=== PATIENT | male | born 1970 | race Caucasian/White ===

== ENCOUNTER → 2020-11-26 13:59 | Outpatient (BNVA) | payer OTHER, SELFPAY | PROVIDERS: Visit Provider Nurse Practitioner Family | DX: F25.9 Schizoaffective disorder, unspecified (principal); F31.9 Bipolar disorder, unspecified; G54.2 Cervical root disorders, not elsewhere classified | CPT/HCPCS: 80053; 80061; 80164; 84443; 85025 ==

== ENCOUNTER → 2021-05-12 14:02 | Outpatient (BNVA) | payer OTHER, SELFPAY | PROVIDERS: Visit Provider Nurse Practitioner Family | DX: L02.212 Cutaneous abscess of back [any part, except buttock and flank] (principal) | CPT/HCPCS: 87070; 87077; 87184 ==

== ENCOUNTER 2022-01-27 20:59 | Inpatient (IN) | payer MEDICARE, MEDICAID, SELFPAY ==
[2022-01-27 21:26] VITALS: BP 155/99; PULSE 115; RESP 20; TEMP 36.7; O2SAT 95; BMI 30.9
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
[2022-01-27 21:43] LABS: Basophils # 0.1 10^3/uL (0.0-0.1); Basophils % 0.7 %; Eosinophils # 0.3 10^3/uL (0.0-0.8); Eosinophils % 2.9 %; Hematocrit 41.2 % (42.0-52.0); Hemoglobin 13.5 g/dL (11.7-16.6); Lymphocytes # 2.4 10^3/uL (0.8-4.8); Lymphocytes % 22.7 %; Mean Corpuscular HGB Conc 32.8 g/dL (30.0-36.0); Mean Corpuscular Hemoglobin 27.8 pg (28.0-34.0); Mean Corpuscular Volume 84.8 fl (80-94); Monocytes # 0.9 10^3/uL (0.2-0.9); Neutrophils # 6.64 10^3/uL (1.8-7.7); Neutrophils % 64.2 %; Nucleated Red Blood Cells % 0 %; Platelet Count 338 10^3/cmm (130-400); Red Blood Count 4.86 10^6/uL (4.1-5.3); Red Cell Distribution Width 13.8 % (12.1-15.1); White Blood Count 10.3 10^3/uL (4.0-10.0)
[2022-01-27 22:12] LABS: Alanine Aminotransferase 16 U/L (0-41); Albumin Level 4.7 g/dL (3.5-5.2); Alkaline Phosphatase 82 IU/L (40-130); Aspartate Amino Transferase 20 U/L (0-40); Blood Urea Nitrogen 21 mg/dL (6-20); Carbon Dioxide 27 mmol/L (22-29); Chloride 98 mmol/L (98-107); Free T4 Free Thyroxine 1.19 ng/dL (0.82-1.77); Glomerular Filtration Rate 70.6 mL/min (90-130); Glucose 104 mg/dL (65-115); Osmolality Calculated 289 mOsm/kg (285-295); Sodium 138 mmol/L (136-145); Thyroid Stimulating Hormone 2.79 uIU/mL (0.27-4.20); Total Bilirubin 0.2 mg/dL (0.15-1.2); Total Protein 8.7 g/dL (6.6-8.7)
[2022-01-27 22:22] LABS: Acetaminophen < 5.0 ug/mL (10-30); Alcohol Level < 10 mg/dL (0-10); Salicylate < 0.3 mg/dL (3-10)
[2022-01-28] VITALS (7 sets, daily range): BP systolic 106–153; BP diastolic 59–97; PULSE 76–100; RESP 14–18; TEMP 36.3–36.8; O2SAT 94–97
[2022-01-28] MEDS: haloperidol inj 5 mg/mL INJ 1 mL IM (05:45)
[2022-01-28] MEDS: LORazepam 2 mg/mL INJ 1 mL IM (05:45)
[2022-01-28 06:24] LABS: Amphetamines Screen Urine Positive (Negative); Barbiturates Screen Urine Negative (Negative); Benzodiazepines Screen Urine Negative (Negative); Cocaine Screen Urine Negative (Negative); Opiate Screen Urine Negative (Negative); PCP Screen Urine Negative (Negative); THC Screen Urine Positive (Negative)
--- NOTE | 2022-01-28 07:23 | PC.NURSE ---
Shift report received from JESSICA Fong. Pt resting in bed, eyes closed, respirations even and unlabored. 1:1 sitter present within line of sight.
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
[2022-01-28] MEDS: fixodent 39 gm Tube 1 APPLIC DENTAL (14:28)
[2022-01-28] MEDS: trazodone 150 mg Tablet PO (20:49)
[2022-01-28] MEDS: divalproex ER 250 mg Tablet (24H) 750 MG PO (20:49)
[2022-01-28] MEDS: gabapentin 400 mg Capsule 800 MG PO (20:49)
[2022-01-29 06:00] VITALS: BP 114/81; PULSE 99; RESP 16; O2SAT 95
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
[2022-01-29 08:31] VITALS: BP 125/72
[2022-01-29] MEDS: losartan 50 mg Tablet 25 MG PO (08:31)
[2022-01-29] MEDS: methocarbamol 750 mg Tablet PO ×2 (08:33→17:06)
[2022-01-29] MEDS: gabapentin 400 mg Capsule 800 MG PO ×3 (08:33→20:25)
[2022-01-29] MEDS: OLANZapine 10 mg TABLET PO ×2 (08:33→17:06)
[2022-01-29] MEDS: duloxetine 60 mg Capsule PO ×2 (08:33→17:06)
[2022-01-29] MEDS: propranolol 20 mg Tablet 10 MG PO ×2 (08:34→17:05)
[2022-01-29] MEDS: divalproex ER 500 mg Tablet (24H) PO (08:34)
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
--- NOTE | 2022-01-29 11:15 | PC.NURSE ---
NEW ORDERS NEW ORDERS PLACED IN CHART TO START TRAZEDONE 250 MG PO Q HS. EDUCATED PT ON NEW MEDICATIONS. ALL QUESTONS ANSWERED AND SUPPORT VOICED.
[2022-01-29 14:00] VITALS: BP 134/87; PULSE 69; RESP 18; TEMP 36.3; O2SAT 98
[2022-01-29] MEDS: OLANZapine 5 mg ODT PO (14:53)
--- NOTE | 2022-01-29 14:54 | PC.NURSE ---
PRN MEDICATIONS PT AT [facility] GETTING AGITATED DUE TO NOT BEING RELEASED LIKE EVERYONE ELSE DID ZYDIS 5 MG GIVEN ORDERED.
[2022-01-29] MEDS: nicotine 21 mg Patch 1 PATCH TRANSDERMA (16:32)
[2022-01-29 19:52] VITALS: BP 110/76; PULSE 80; RESP 18; TEMP 36.7; O2SAT 96
[2022-01-29] MEDS: divalproex ER 250 mg Tablet (24H) 750 MG PO (20:24)
[2022-01-29] MEDS: trazodone 100 mg Tablet 250 MG PO (20:25)
[2022-01-30 06:00] VITALS: BP 136/89; PULSE 79; RESP 20; TEMP 36.6; O2SAT 96
[2022-01-30] MEDS: acetaminophen 325 mg Tablet 650 MG PO (06:05)
--- NOTE | 2022-01-30 07:42 | P.NPUPN_ITS ---
Subjective NPU Subjective: He says that he did sleep better with the trazodone 250 mg last night. He has been acting appropriately on the unit. He does talk to himself sometimes and talks to the television. He says that he does that sometimes. He is just talking out his thoughts. He says that it is any worse than usual lately. He says that he told them that he had Medicare when he came but he really does not. He says that he was in [facility] for about 3 years up until November 10 of this year when he was released. He has not restarted his Medicare because he could not get to the Social Security office. He says his premiums are $70 per month. He agreed to stay until tomorrow when he could hopefully go to the Social Security office and also social workers could arrange his ride home. Mental Status Exam MSE Comments: This is an overweight 51-year-old male who appears approximately his stated age and is in no acute distress. He is pleasant and cooperative with the evaluation. He has a constant movement of his lower jaw from side to side. He is dressed in hospital scrubs and adequately groomed with a full wheeler. psychomotor activity is mildly increased. Speech is at a regular rate and rhythm, normal volume, good articulation, not pressured. Alert, oriented X3 Attention and concentration appear to be normal. Memory is intact Mood is good. Affect is euthymic. Thought process is logical and goal-directed. Thought content: Denies auditory and visual hallucinations. No delusions or paranoia are noted. No current suicidal ideation. He denies homicidal ideation. Fund of knowledge is probably average. Insight and judgment appear to be poor. Impulse control is limited. Cognition: Patient Appearance: Disheveled/Poor Hygiene Level of Consciousness: Awake, Alert, Follows Commands and Combative Patient Cognition Impaired: Yes Ability to Follow Directions: Fair Patient Orientation (long list): Person, Place and Time Comprehension Ability: No Impairment Hallucination Type: None Delusion Description: Persecutory Thought Process: Disorganized and Flight of Ideas Affect: Affect Description: Appropriate and Calm Behavior: Patient Behavior: Appropriate and Cooperative Speech Pattern: Appropriate and Clear Vitals/I&O/Wt Last Vital Signs Temp 97.8 F 01/30/22 06:00 Pulse 79 01/30/22 06:00 Resp 20 H 01/30/22 06:00 BP 136/89 01/30/22 06:00 Pulse Ox 96 01/30/22 06:00 Weight last 48 hrs Weight 106.141 kg Weight 106.141 kg Data NPU : 01/27/22 21:40 01/27/22 21:40 A&P Assessment and plan (1) Schizoaffective disorder, unspecified: Status: Chronic Qualifiers: Schizoaffective disorder type: unspecified Qualified Code(s): F25.9 - Schizoaffective disorder, unspecified (2) Psychosis: Status: Acute (3) Tardive dyskinesia: Status: Acute Plan This is a 51-year-old male with a history of schizoaffective disorder who police say has been acting manic the last few days. He appears to be compliant with his medications. Plan: 1. Continue current medication. Except increase trazodone to 250 mg at bedtime. We will get Depakote level. 2. Continue every 15 minute checks for safety. 3. Encourage individual, group and milieu therapies. 4. Encourage sober living treatment after discharge at the highest level of care to which he is willing to commit. 5. We will monitor for safety for himself in the community prior to discharge. Involuntary Hold Information 96 Hour Hold: 96 Hour Involuntary Admission: Yes 96 Hour Hold Ending Date: 02/02/22 Attestations NPU Medical Necessity Statement*: Inpatient hospitalization is medically necessary and the clinically appropriate intervention at this time. We will initiate medications and make changes as indicated. Coding Level of Care Code Acute Health Care Analyst for Rosie Varner Diagnoses Schizoaffective disorder, unspecified F25.9 Schizoaffective disorder type: unspecified Psychosis F29 Tardive dyskinesia G24.01
[2022-01-30] MEDS: divalproex ER 500 mg Tablet (24H) PO (08:18)
[2022-01-30] MEDS: methocarbamol 750 mg Tablet PO ×2 (08:19→20:10)
[2022-01-30] MEDS: losartan 50 mg Tablet 25 MG PO (08:19)
[2022-01-30] MEDS: gabapentin 400 mg Capsule 800 MG PO ×3 (08:19→20:11)
[2022-01-30] MEDS: duloxetine 60 mg Capsule PO ×2 (08:20→20:11)
[2022-01-30] MEDS: OLANZapine 10 mg TABLET PO ×2 (08:20→20:11)
[2022-01-30] MEDS: propranolol 20 mg Tablet 10 MG PO ×2 (08:20→20:11)
[2022-01-30 09:17] LABS: Valproic Acid Level 50.9 ug/mL (50-100)
[2022-01-30 14:00] VITALS: BP 140/80; PULSE 84; RESP 20; TEMP 36.8; O2SAT 98
[2022-01-30 20:07] VITALS: BP 118/84; PULSE 76; RESP 17; TEMP 36.6; O2SAT 96
[2022-01-30] MEDS: trazodone 100 mg Tablet 250 MG PO (20:09)
[2022-01-30] MEDS: divalproex ER 250 mg Tablet (24H) 750 MG PO (20:11)
[2022-01-31 06:00] VITALS: BP 131/88; PULSE 80; RESP 17; TEMP 36.6; O2SAT 96
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
[2022-01-31] MEDS: losartan 50 mg Tablet 25 MG PO (07:48)
[2022-01-31] MEDS: divalproex ER 500 mg Tablet (24H) PO (07:48)
[2022-01-31] MEDS: OLANZapine 10 mg TABLET PO (07:49)
[2022-01-31] MEDS: duloxetine 60 mg Capsule PO (07:49)
[2022-01-31] MEDS: gabapentin 400 mg Capsule 800 MG PO ×2 (07:50→15:43)
[2022-01-31] MEDS: methocarbamol 750 mg Tablet PO (07:51)
[2022-01-31 07:53] VITALS: BP 131/88; PULSE 80; RESP 17; TEMP 36.6; O2SAT 96
[2022-01-31 08:03] VITALS: BP 131/88; PULSE 80; RESP 17; TEMP 36.6; O2SAT 96
[2022-01-31] MEDS: propranolol 20 mg Tablet 10 MG PO (09:56)
--- NOTE | 2022-01-31 10:03 | DCPLANNER ---
IMM completed on 01/31/22 @ 7625. Pt was given a copy of rights and stated he understood rights.
[2022-01-31] MEDS: nicotine 21 mg Patch 1 PATCH TRANSDERMA (10:20)
--- NOTE | 2022-01-31 10:20 | PC.OT ---
OT EVALUATION ORDERS RECEIVED. PATIENT SCHEDULED FOR D/C TODAY; NURSING ASKS TO HOLD EVALUATION AT THIS TIME.
== END 2022-01-31 16:10 | disposition home or self-care (01) | DRG 885 ==
LOC: ER 01-28 01:20 → ER IP 01-28 03:28 → NP 01-28 09:17
PROVIDERS: Emergency Medicine; Admitting Provider Psychiatry & Neurology Psychiatry; Emergency Provider Emergency Medicine; Visit Provider Psychiatry & Neurology Psychiatry
DX: F25.9 Schizoaffective disorder, unspecified (principal); Z91.14 Patient's other noncompliance with medication regimen; F17.200 Nicotine dependence, unspecified, uncomplicated; G24.01 Drug induced subacute dyskinesia
CPT/HCPCS: 80053; 80164; 80306; 80307; 84439; 84443; 85025; 96372; 97150; 97165; 99285; J1630; J2060

== ENCOUNTER 2022-02-05 16:53 | Observation (INO) | payer MEDICAID, SELFPAY ==
[2022-02-05] VITALS (10 sets, daily range): BP systolic 98–131; BP diastolic 68–79; PULSE 70–106; RESP 16–22; TEMP 36.6–36.9; O2SAT 95–99; BMI 29.0
--- NOTE | 2022-02-05 17:01 | ECG_ITS ---
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 Measurements Intervals [place] Rate: 89 P: 62 TN: 156 QRS: 15 QRSD: 98 T: 34 QT: 370 QTc: 452 Interpretive Statements SINUS RHYTHM Compared to ECG 09/30/2018 16:47:47 No significant changes Electronically Signed On 02-06-2022 13:01:54 CDT by Pearl Portillo M.D. [email or web address]
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
[2022-02-05] MEDS: ondansetron 2 mg/ML SDV 2 mL 4 MG IVP (17:10)
[2022-02-05] MEDS: sodium chloride 0.9% 1,000 ML 999 ML IV ×2 (17:10→22:06)
[2022-02-05 17:11] LABS: Basophils # 0.1 10^3/uL (0.0-0.1); Basophils % 0.8 %; Eosinophils # 0.2 10^3/uL (0.0-0.8); Eosinophils % 1.5 %; Hematocrit 37.8 % (42.0-52.0); Hemoglobin 12.8 g/dL (11.7-16.6); Lymphocytes # 2.5 10^3/uL (0.8-4.8); Lymphocytes % 21.1 %; Mean Corpuscular HGB Conc 33.9 g/dL (30.0-36.0); Mean Corpuscular Hemoglobin 27.6 pg (28.0-34.0); Mean Corpuscular Volume 81.6 fl (80-94); Mean Platelet Volume 10.4 fL (7.4-10.4); Monocytes # 0.9 10^3/uL (0.2-0.9); Monocytes % 7.1 %; Neutrophils # 8.24 10^3/uL (1.8-7.7); Neutrophils % 69.2 %; Nucleated Red Blood Cells % 0 %; Platelet Count 377 10^3/cmm (130-400); Red Blood Count 4.63 10^6/uL (4.1-5.3); Red Cell Distribution Width 13.1 % (12.1-15.1); White Blood Count 11.9 10^3/uL (4.0-10.0)
[2022-02-05 17:28] LABS: Alanine Aminotransferase 14 U/L (0-41); Albumin Level 4.4 g/dL (3.5-5.2); Alkaline Phosphatase 80 IU/L (40-130); Anion Gap 18.2 (5-19); Aspartate Amino Transferase 33 U/L (0-40); Blood Urea Nitrogen 52 mg/dL (6-20); Calcium 9.2 mg/dL (8.5-10.5); Carbon Dioxide 24 mmol/L (22-29); Chloride 95 mmol/L (98-107); Globulin 3.8 g/dL (1.3-4.6); Glomerular Filtration Rate 26.2 mL/min (90-130); Glucose 104 mg/dL (65-115); Osmolality Calculated 290 mOsm/kg (285-295); Potassium 4.2 mmol/L (3.5-5.1); Sodium 133 mmol/L (136-145); Total Bilirubin 0.4 mg/dL (0.15-1.2); Total Protein 8.2 g/dL (6.6-8.7)
--- NOTE | 2022-02-05 19:01 | PM.HP ---
Providers/Chief Complaint Admitting Physician: Nishant Herrera MD Chief Complaint: WEAKNESS; LETHARGY History of Present Illness Hudson Vega is a 51 year old male who was found in a ditch by EMS. He was outside in the field for unkown amount of time. Carries hx of bipolar disorder and was recently discharged from npu a few days ago. Signs of heat exhaustion present on admission. Patient is stating that he was just walking and exercising while it was very hot outside he became dehydrated and overexerted himself and lean on the ground and his friend called EMS. Denying chest pain, shortness of breath, diarrhea, suicidal ideation. In the ER he was diagnosed with dehydration, he was tachycardic, creatinine worsened and hospital service was requested to maintain fluid hydration and observe him overnight Review of Systems Const: Denies: fever(s) Eyes: Denies: change in vision ENMT: Denies: throat pain Card: Denies: chest pain Resp: Denies: dyspnea GI: Denies: abdominal pain : Denies: flank pain Musc: Denies: neck pain Skin/Breast: Denies: rash Neuro: Denies: headache(s) Psych: Denies: anxiety Endo: Denies: polyuria Eitan/Lymph: Denies: easy bruising All/Imm: Denies: urticaria Medications/Allergies Home Medications Medication Instructions Recorded Confirmed Last Taken Type divalproex 250 mg tablet,extended 750 mg PO .bedtime 30 Days #90 tab 08/24/21 02/06/22 Unknown Rx release 24 hr (Depakote ER) divalproex 500 mg tablet,extended 500 mg PO .morning 30 Days #30 tab 08/24/21 02/06/22 Unknown Rx release 24 hr (Depakote ER) methocarbamol 750 mg tablet 750 mg PO .2 times day 30 Days #60 08/24/21 02/06/22 Unknown Rx tab naproxen 500 mg tablet 500 mg PO BID 30 Days #60 tab 08/24/21 02/06/22 Unknown Rx olanzapine 10 mg tablet (Zyprexa) 10 mg PO BID 30 Days #60 tab 08/24/21 02/06/22 Unknown Rx trazodone 150 mg tablet 150 mg PO .at bedtime 30 Days #30 08/24/21 02/06/22 Unknown Rx tab valsartan 80 mg tablet (Diovan) 80 mg PO DAILY #30 tab 08/24/21 02/06/22 Unknown Rx gabapentin 600 mg tablet 600 mg PO 3XD 02/06/22 02/06/22 Unknown History Allergies Allergy/AdvReac Type Severity Reaction Status Date / Time No Known Allergies Allergy Verified 01/28/22 08:16 PFSH Acute PFSH: Medical History Anxiety Bipolar depression Cervical plexus neuropathy Myofascial pain syndrome Schizoaffective disorder, unspecified Surgical History History of knee surgery left Family History Denies family history of CAD (coronary artery disease) Family history of premature coronary artery disease Social History Smoking and tobacco status: current every day smoker Second hand smoke exposure: Yes Smoking risk assessment/counseling performed?: Yes Alcohol intake: unknown Desire information about alcohol rehabilitation?: No Counseling given: No Desire information about substance/drug rehabilitation?: No Counseling given: No Caregiver/support person: Yes Lives independently: Yes Household members: none Housing: Other Marital status: Number of children: 4 service: No Current occupational status: other Pets and animals: No History of recent travel: No Current gender identity: Male Vitals/I&O/Wt Last Vital Signs Temp 97.9 F 02/05/22 16:56 Pulse 106 H 02/05/22 18:00 Resp 22 H 02/05/22 18:00 BP 98/70 02/05/22 18:00 Pulse Ox 97 02/05/22 18:00 Weight last 48 hrs Weight 99.79 kg Physical Exam Narrative: Nonfocal neuro exam Patient is back to his baseline Signs of dehydration Distended abdomen Nontender Awake and alert Satting well on room air Hemodynamically stable Data : 02/06/22 04:15 02/06/22 04:15 A&P Assessment and plan (1) Heat exhaustion: Status: Acute (2) ADITHYA (acute kidney injury): Status: Acute Plan Dehydration related to heat exhaustion Continue IV fluids Check CPK NIH 0 Polysubstance abuse I will request chest x-ray Drug screen ADITHYA related to dehydration: Anticipating, with IV fluids No active suicidal ideation Full code Regular diet Hold nephrotoxic agents Attestations Medical Necessity Statement*: Anticipating discharge within 48 hours for dehydration and heat exhaustion Time Spent in Patient Care: 35 Coding Level of Care Code Acute [employer] Sp[employer] Mixer for Chg Fwd Diagnoses Heat exhaustion T67.5XXA ADITHYA (acute kidney injury) N17.9
--- NOTE | 2022-02-05 19:09 | XRR_ITS ---
PROCEDURE INFORMATION: Exam: XR Chest Exam date and time: 02/05/2022 7:45 PM Age: 51 years old Clinical indication: Other: AMS TECHNIQUE: Imaging protocol: Radiologic exam of the chest. Views: 1 view. COMPARISON: CR Chest 1 [place] [id number] 09/30/2018 10:16 AM FINDINGS: Lungs: Shallow inspiration. The lungs are clear. No consolidation. Pleural spaces: Unremarkable. No pleural effusion. No pneumothorax. Heart/Mediastinum: Soft tissue calcifications in the left axilla versus calcified lymph nodes. This is unchanged. Bones/joints: Unremarkable. XR/XR chest 1V portable [id number] IMPRESSION: No acute findings.
[2022-02-05 19:33] LABS: Ketone (Acetest) Serum Negative (Negative)
--- NOTE | 2022-02-05 19:40 | PC.NURSE ---
1845 Given room assignment, HS directed staff to call report before 1924. Attempt at report at 0, 1920 and 1930 without success.
[2022-02-05 22:09] LABS: Glucose Point of Care 86 mg/dL (70-110)
[2022-02-05] MEDS: sodium chloride 0.9% 1,000 ML 75 ML IV (23:50)
[2022-02-06 03:49] VITALS: BP 112/59; PULSE 62; RESP 16; TEMP 36.8; O2SAT 97
[2022-02-06 05:15] LABS: Basophils % 0.4 %; Eosinophils # 0.2 10^3/uL (0.0-0.8); Eosinophils % 2.2 %; Hematocrit 35.5 % (42.0-52.0); Hemoglobin 11.7 g/dL (11.7-16.6); Lymphocytes # 3.7 10^3/uL (0.8-4.8); Mean Corpuscular Hemoglobin 27.4 pg (28.0-34.0); Mean Corpuscular Volume 83.1 fl (80-94); Mean Platelet Volume 10.7 fL (7.4-10.4); Monocytes # 0.8 10^3/uL (0.2-0.9); Monocytes % 8.2 %; Neutrophils # 4.54 10^3/uL (1.8-7.7); Neutrophils % 48.9 %; Nucleated Red Blood Cells % 0 %; Platelet Count 333 10^3/cmm (130-400); Red Blood Count 4.27 10^6/uL (4.1-5.3); Red Cell Distribution Width 13.4 % (12.1-15.1); White Blood Count 9.3 10^3/uL (4.0-10.0)
[2022-02-06 06:00] VITALS: PULSE 65
[2022-02-06 06:00] LABS: Anion Gap 13.7 (5-19); Blood Urea Nitrogen 35 mg/dL (6-20); Calcium 8.7 mg/dL (8.5-10.5); Carbon Dioxide 24 mmol/L (22-29); Chloride 99 mmol/L (98-107); Glomerular Filtration Rate 58.2 mL/min (90-130); Glucose 84 mg/dL (65-115); Magnesium 2.7 mg/dL (1.7-2.3); Osmolality Calculated 283 mOsm/kg (285-295); Potassium 3.7 mmol/L (3.5-5.1); Sodium 133 mmol/L (136-145)
[2022-02-06 06:12] LABS: Creatine Phosphokinase 619 U/L (39-308)
[2022-02-06 06:22] LABS: Glucose Point of Care 85 mg/dL (70-110)
[2022-02-06 07:22] VITALS: BP 101/60; PULSE 59; RESP 18; O2SAT 96
[2022-02-06 08:00] VITALS: PULSE 90; RESP 16; O2SAT 96
[2022-02-06 10:16] LABS: Add Urine Microscopic? NO; Charge for UA Resulting for Rev
[2022-02-06 10:49] VITALS: BP 103/60; PULSE 85; RESP 16; TEMP 36.8; O2SAT 97
[2022-02-06 10:50] LABS: Bilirubin Urine Neg (Negative); Blood Urine Neg (Negative); Glucose Urine UA Norm (Normal); Ketones Urine Negative (Negative); Leukocyte Esterase Urine Negative (Negative); Nitrate Urine Negative (Negative); Protein Urine Neg (Negative); Urine Appearance Clear (CLEAR); Urine Color Yellow (Yellow); Urobilinogen Urine Norm (Negative); pH Urine 5 (5-7)
[2022-02-06 10:59] LABS: Amphetamines Screen Urine Negative (Negative); Barbiturates Screen Urine Negative (Negative); Benzodiazepines Screen Urine Negative (Negative); Cocaine Screen Urine Negative (Negative); Opiate Screen Urine Negative (Negative); PCP Screen Urine Negative (Negative); THC Screen Urine Positive (Negative)
--- NOTE | 2022-02-06 11:18 | P.DS_ITS ---
Discharge Providers Date of Admission: 02/05/22 18:05 Date of Discharge: February 06, 2022 Attending Provider at Admission: Nishant Herrera MD Attending Provider at Discharge: Nishant Herrera MD Reason for Visit Reason for Visit: WEAKNESS; LETHARGY Hospital Course Hospital Course Patient was admitted for management and evaluation of presyncope related to heat exhaustion and dehydration. Drug screen positive for marijuana, he remained afebrile, NIH 0, CPK 619, patient was back to his baseline in the ER, he was hydrated with IV fluids, creatinine improved, ADITHYA which was related to dehydration. I am recommending holding losartan for at least a week, increase IV fluids. Patient will be discharged in stable condition on 02/06. Physical Exam Narrative: Nonfocal neuro exam He is walking around No active psychotic episodes Hemodynamically stable Awake and alert Hydrated Abdomen soft Satting well on room air Discharge Data Studies Completed and Pending Completed Studies During Hospitalization Category Date Time Status XR chest 1V portable [id number] Routine Exams 02/05/22 19:09 Completed Pending at discharge Category Date Time Status Drug Screen, Urine Routine Lab 02/05/22 19:13 Ordered Radiology Impressions Chest X-Ray 02/05/22 19:09 IMPRESSION: No acute findings. Laboratory Results WBC 9.3 10^3/uL (4.0-10.0) 02/06/22 04:15 RBC 4.27 10^6/uL (4.1-5.3) 02/06/22 04:15 Hgb 11.7 g/dL (11.7-16.6) 02/06/22 04:15 Hct 35.5 % (42.0-52.0) L 02/06/22 04:15 MCV 83.1 fl (80-94) 02/06/22 04:15 MCH 27.4 pg (28.0-34.0) L 02/06/22 04:15 MCHC 33.0 g/dL (30.0-36.0) 02/06/22 04:15 RDW 13.4 % (12.1-15.1) 02/06/22 04:15 Plt Count 333 10^3/cmm (130-400) 02/06/22 04:15 MPV 10.7 fL (7.4-10.4) H 02/06/22 04:15 Neut % (Auto) 48.9 % 02/06/22 04:15 Lymph % (Auto) 40.0 % 02/06/22 04:15 Mckenzie % (Auto) 8.2 % 02/06/22 04:15 Eos % (Auto) 2.2 % 02/06/22 04:15 Baso % (Auto) 0.4 % 02/06/22 04:15 Neut # (Auto) 4.54 10^3/uL (1.8-7.7) 02/06/22 04:15 Lymph # (Auto) 3.7 10^3/uL (0.8-4.8) 02/06/22 04:15 Mckenzie # (Auto) 0.8 10^3/uL (0.2-0.9) 02/06/22 04:15 Eos # (Auto) 0.2 10^3/uL (0.0-0.8) 02/06/22 04:15 Baso # (Auto) 0.0 10^3/uL (0.0-0.1) 02/06/22 04:15 Nucleated RBC % (auto) 0 % 02/06/22 04:15 Nucleated RBCs # 0.0 /100WBC 02/06/22 04:15 Sodium 133 mmol/L (136-145) L 02/06/22 04:15 Potassium 3.7 mmol/L (3.5-5.1) 02/06/22 04:15 Chloride 99 mmol/L (98-107) 02/06/22 04:15 Carbon Dioxide 24 mmol/L (22-29) 02/06/22 04:15 Anion Gap 13.7 (5-19) 02/06/22 04:15 BUN 35 mg/dL (6-20) H 02/06/22 04:15 Creatinine 1.3 mg/dL (0.7-1.2) H 02/06/22 04:15 GFR Calculation 58.2 mL/min (90-130) L 02/06/22 04:15 Glucose 84 mg/dL (65-115) 02/06/22 04:15 POC Glucose 85 mg/dL (70-110) 02/06/22 06:14 Calculated Osmolality 283 mOsm/kg (285-295) L 02/06/22 04:15 Calcium 8.7 mg/dL (8.5-10.5) 02/06/22 04:15 Magnesium 2.7 mg/dL (1.7-2.3) H 02/06/22 04:15 Total Bilirubin 0.4 mg/dL (0.15-1.2) 02/05/22 17:00 AST 33 U/L (0-40) 02/05/22 17:00 ALT 14 U/L (0-41) 02/05/22 17:00 Alkaline Phosphatase 80 IU/L (40-130) 02/05/22 17:00 Creatine Kinase 619 U/L (39-308) H* 02/06/22 04:15 Total Protein 8.2 g/dL (6.6-8.7) 02/05/22 17:00 Albumin 4.4 g/dL (3.5-5.2) 02/05/22 17:00 Globulin 3.8 g/dL (1.3-4.6) 02/05/22 17:00 Urine Color Yellow (Yellow) 02/05/22 10:10 Urine Appearance Clear (CLEAR) 02/05/22 10:10 Urine pH 5 (5-7) 02/05/22 10:10 Ur Specific [place] 1.010 (1.005-1.030) 02/05/22 10:10 Urine Protein Neg (Negative) 02/05/22 10:10 Urine Glucose (UA) Norm (Normal) 02/05/22 10:10 Urine Ketones Negative (Negative) 02/05/22 10:10 Urine Blood Neg (Negative) 02/05/22 10:10 Urine Nitrate Negative (Negative) 02/05/22 10:10 Urine Bilirubin Neg (Negative) 02/05/22 10:10 Urine Urobilinogen Norm mg/dL (Negative) 02/05/22 10:10 Ur Leukocyte Esterase Negative (Negative) 02/05/22 10:10 Serum Ketones Negative (Negative) 02/05/22 17:00 Vitals Last Vital Signs Temp 98.3 F 02/06/22 10:49 Pulse 85 02/06/22 10:49 Resp 16 02/06/22 10:49 BP 103/60 02/06/22 10:49 Pulse Ox 97 02/06/22 10:49 Discharge Plan Discharge Patient Disposition: Home Condition: Stable Prescriptions: Continued trazodone 150 mg tablet 150 mg PO .at bedtime 30 Days Qty: 30 5RF olanzapine [Zyprexa] 10 mg tablet 10 mg PO BID 30 Days Qty: 60 5RF methocarbamol 750 mg tablet 750 mg PO .2 times day 30 Days Qty: 60 5RF divalproex [Depakote ER] 250 mg tablet extended release 24 hr 750 mg PO .bedtime 30 Days Qty: 90 5RF divalproex [Depakote ER] 500 mg tablet extended release 24 hr 500 mg PO .morning 30 Days Qty: 30 5RF gabapentin 600 mg tablet 600 mg PO 3XD 0RF Held naproxen 500 mg tablet 500 mg PO BID 30 Days Qty: 60 5RF Hold Instructions: Resume on 02/13/22. valsartan [Diovan] 80 mg tablet 80 mg PO DAILY Qty: 30 5RF Hold Instructions: Resume on 02/13/22. Discharge Orders: Discharge Order (Routine); Ordered 02/06/22 Ordered By: Nishant Herrera Discharge Diet: Regular Patient Instructions: Marijuana Abuse, Rhabdomyolysis (DC), Opioid Safety Discharge Attestations Time Spent in Discharge Care*: less than 30 min Quality Metrics Clinical Quality Measures [ No reported AMI, CVA or VTE this stay] Coding Level of Care Code Acute Chg FW DC note
[2022-02-06 11:25] LABS: Glucose Point of Care 140 mg/dL (70-110)
[2022-02-06 12:57] VITALS: BP 103/60; PULSE 85; RESP 16; TEMP 36.8; O2SAT 97
--- NOTE | 2022-02-06 12:58 | PC.NURSE ---
pt left main entrance on foot, did not wait for ride to arrive.
== END 2022-02-06 12:59 | disposition home or self-care (01) ==
LOC: ER 18:06 → MEDSURG 20:10
PROVIDERS: Admitting Provider Internal Medicine; Emergency Provider Family Medicine; Visit Provider Internal Medicine
DX: R55 Syncope and collapse (principal); T67.5XXA Heat exhaustion, unspecified, initial encounter; X58.XXXA Exposure to other specified factors, initial encounter; E86.0 Dehydration; F12.90 Cannabis use, unspecified, uncomplicated; F41.9 Anxiety disorder, unspecified; F17.200 Nicotine dependence, unspecified, uncomplicated
CPT/HCPCS: 36415; 36416; 71045; 80048; 80053; 80306; 81003; 82009; 82550; 82962; 83735; 85025; 93005; 96361; 96374; 99285; G0378; J2405; J7030

== ENCOUNTER 2022-02-07 15:32 | Inpatient (IN) | payer MEDICARE, MEDICAID, SELFPAY ==
[2022-02-07 15:43] VITALS: BP 140/92; PULSE 85; RESP 18; TEMP 36.7; O2SAT 93; BMI 30.9
--- NOTE | 2022-02-07 15:55 | ED.C_ITS ---
HPI - Psych General: Chief Complaint: Psychiatric Symptoms Stated Complaint: suicidal thoughts Time Seen by Provider: 02/07/22 15:47 Review of Systems Const: Denies: fever(s) or chills Eyes: Denies: change in vision ENMT: Denies: mouth pain Card: Denies: chest pain or palpitations Resp: Denies: dyspnea or non-productive cough GI: Denies: abdominal pain, nausea, vomiting or diarrhea : Denies: dysuria Musc: Denies: extremity pain Skin/Breast: Denies: rash or new lesions Neuro: Denies: weakness in extremities Psych: Reports: other (Normal mood) Eitan/Lymph: Denies: easy bruising PFSH ED PFSH: Medical History Anxiety Bipolar depression Cervical plexus neuropathy Myofascial pain syndrome Schizoaffective disorder, unspecified Surgical History History of knee surgery left Family History Denies family history of CAD (coronary artery disease) Family history of premature coronary artery disease Social History Smoking and tobacco status: current every day smoker Second hand smoke exposure: Yes Smoking risk assessment/counseling performed?: Yes Alcohol intake: unknown Desire information about alcohol rehabilitation?: No Counseling given: No Desire information about substance/drug rehabilitation?: No Counseling given: No Caregiver/support person: Yes Lives independently: Yes Household members: none Housing: Other Marital status: Number of children: 4 service: No Current occupational status: other Pets and animals: No History of recent travel: No Current gender identity: Male Physical Exam Const: COMMON NORMALS: alert HENMT: COMMON NORMALS: atraumatic HEAD & SCALP: atraumatic MOUTH: moist mucous membranes not abnormal Eye: COMMON NORMALS: EOMs intact bilaterally and conjunctivae normal CONJUNCTIVA: Yes conjunctivae normal Neck/C-Spine: COMMON NORMALS: full ROM and supple Resp: COMMON NORMALS: normal respiratory effort and clear to auscultation bilaterally AUSCULTATION: clear to auscultation bilaterally Cardio: COMMON NORMALS: regular rate RATE: regular rate GI: COMMON NORMALS: Soft to palpation and non-tender PALPATION: Yes Soft to palpation Extremity: COMMON NORMALS: full ROM Neuro: SENSORIUM/ORIENTATION: Yes alert MOTOR EXAM: No Abnormal motor strength present and Other motor observations present (no focal motor deficits) Psych: COMMON NORMALS: speech normal SPEECH: Yes normal speech MOOD & AFFECT: Yes euthymic mood Course Vital Signs: Vital signs: Vital Signs Temperature 98.1 F 02/07/22 15:43 Pulse Rate 85 02/07/22 15:43 Respiratory Rate 18 02/07/22 15:43 Blood Pressure 140/92 02/07/22 15:43 Pulse Oximetry 93 02/07/22 15:43 Discharge Plan Discharge Condition: Stable Prescriptions: No Action trazodone 150 mg tablet 150 mg PO .at bedtime 30 Days Qty: 30 5RF olanzapine [Zyprexa] 10 mg tablet 10 mg PO BID 30 Days Qty: 60 5RF naproxen 500 mg tablet 500 mg PO BID 30 Days Qty: 60 5RF Hold Instructions: Resume on 02/13/22. methocarbamol 750 mg tablet 750 mg PO .2 times day 30 Days Qty: 60 5RF divalproex [Depakote ER] 250 mg tablet extended release 24 hr 750 mg PO .bedtime 30 Days Qty: 90 5RF divalproex [Depakote ER] 500 mg tablet extended release 24 hr 500 mg PO .morning 30 Days Qty: 30 5RF valsartan [Diovan] 80 mg tablet 80 mg PO DAILY Qty: 30 5RF Hold Instructions: Resume on 02/13/22. gabapentin 600 mg tablet 600 mg PO 3XD 0RF Coding Level of Care Code ED Financial Reporting Director for Chg Fwd
--- NOTE | 2022-02-07 15:57 | ED_ITS ---
HPI - General Adult General: Chief complaint: Psychiatric Symptoms Stated complaint: suicidal thoughts Time Seen by Provider: 02/07/22 15:47 History of Present Illness: HPI: [51]yo patient w/ hx of anxiety, bipolar disorder BIBA for suicidal ideation. He tells me that he does not have a ride home however he says that Even if I get home my, I am going to cut my wrist with a razor. On arrival, the patient is AAOx3 and cooperative with my evaluation. No focal complaints of chest pain, shortness of breath, palpitations, N/V, focal GI/ complaints. Currently denies HI. No complaints of hallucinations. Onset: acute Duration: ongoing Location: home Severity: severe Associated symptoms: Deny chest pain, dyspnea, nausea, rash, palpitations or vomiting Review of Systems Const: Denies: fever(s) or chills Eyes: Denies: change in vision ENMT: Denies: mouth pain Card: Denies: chest pain or palpitations Resp: Denies: dyspnea or non-productive cough GI: Denies: abdominal pain, nausea, vomiting or diarrhea : Denies: dysuria Musc: Denies: extremity pain Skin/Breast: Denies: rash or new lesions Neuro: Denies: weakness in extremities Psych: Reports: depression and suicidal ideation Eitan/Lymph: Denies: easy bruising PFSH ED PFSH: Medical History Anxiety Bipolar depression Cervical plexus neuropathy Myofascial pain syndrome Schizoaffective disorder, unspecified Surgical History History of knee surgery left Family History Denies family history of CAD (coronary artery disease) Family history of premature coronary artery disease Social History Smoking and tobacco status: current every day smoker Second hand smoke exposure: Yes Smoking risk assessment/counseling performed?: Yes Alcohol intake: unknown Desire information about alcohol rehabilitation?: No Counseling given: No Desire information about substance/drug rehabilitation?: No Counseling given: No Caregiver/support person: Yes Lives independently: Yes Household members: none Housing: Other Marital status: Number of children: 4 service: No Current occupational status: other Pets and animals: No History of recent travel: No Current gender identity: Male Physical Exam Const: COMMON NORMALS: alert HENMT: COMMON NORMALS: atraumatic HEAD & SCALP: atraumatic MOUTH: moist mucous membranes not abnormal Eye: COMMON NORMALS: EOMs intact bilaterally and conjunctivae normal CONJUNCTIVA: Yes conjunctivae normal Neck/C-Spine: COMMON NORMALS: full ROM and supple Resp: COMMON NORMALS: normal respiratory effort and clear to auscultation bilaterally AUSCULTATION: clear to auscultation bilaterally Cardio: COMMON NORMALS: regular rate RATE: regular rate GI: COMMON NORMALS: Soft to palpation and non-tender PALPATION: Yes Soft to palpation Extremity: COMMON NORMALS: full ROM Neuro: SENSORIUM/ORIENTATION: Yes alert MOTOR EXAM: No Abnormal motor strength present and Other motor observations present (no focal motor deficits) Psych: COMMON NORMALS: speech normal SPEECH: Yes normal speech MOOD & AFFECT: Yes depressed mood Course Vital Signs: Vital signs: Vital Signs Temperature 98 F 02/10/22 13:17 Pulse Rate 78 02/10/22 13:17 Respiratory Rate 17 02/10/22 13:17 Blood Pressure 128/84 02/10/22 13:17 Pulse Oximetry 97 02/10/22 13:17 [facility] - General Adult Medical Decision Making [51]yo patient w/ hx of bipolar disorder, anxiety presenting for SI with plan. HDS, exam within normal limit Thoughts are linear and organized, and the patient has no AH/VH, or HI. Clinically the patient displays no overt toxidrome; they are well appearing, with low suspicion for toxic ingestion given history and exam. Symptoms unlikely 2/2 anemia, hypothyroidism, infection, or ICH. Workup: CBC, CMP, Lipase, salicylate/tylenol, UDS Lab findings: wnl, +marijuana in the urine [5:30pm] On reassessment, labs and workup wnl. Patient is hemodynamically stable with no acute medical complaints. Case discussed with psychiatric provider Dr. Forrest at [facility] psych inpatient with recommendation for admission Disposition: Psych Lab Data : 02/07/22 16:35 02/07/22 16:35 Laboratory Results WBC 10.2 10^3/uL (4.0-10.0) H 02/07/22 16:35 RBC 4.41 10^6/uL (4.1-5.3) 02/07/22 16:35 Hgb 12.2 g/dL (11.7-16.6) 02/07/22 16:35 Hct 37.0 % (42.0-52.0) L 02/07/22 16:35 MCV 83.9 fl (80-94) 02/07/22 16:35 MCH 27.7 pg (28.0-34.0) L 02/07/22 16:35 MCHC 33.0 g/dL (30.0-36.0) 02/07/22 16:35 RDW 13.5 % (12.1-15.1) 02/07/22 16:35 Plt Count 358 10^3/cmm (130-400) 02/07/22 16:35 MPV 10.4 fL (7.4-10.4) 02/07/22 16:35 Neut % (Auto) 71.0 % 02/07/22 16:35 Lymph % (Auto) 19.8 % 02/07/22 16:35 [place] % (Auto) 7.3 % 02/07/22 16:35 Eos % (Auto) 1.0 % 02/07/22 16:35 Baso % (Auto) 0.5 % 02/07/22 16:35 Neut # (Auto) 7.26 10^3/uL (1.8-7.7) 02/07/22 16:35 Lymph # (Auto) 2.0 10^3/uL (0.8-4.8) 02/07/22 16:35 [place] # (Auto) 0.8 10^3/uL (0.2-0.9) 02/07/22 16:35 Eos # (Auto) 0.1 10^3/uL (0.0-0.8) 02/07/22 16:35 Baso # (Auto) 0.1 10^3/uL (0.0-0.1) 02/07/22 16:35 Nucleated RBC % (auto) 0 % 02/07/22 16:35 Nucleated RBCs # 0.0 /100WBC 02/07/22 16:35 Sodium 133 mmol/L (136-145) L 02/07/22 16:35 Potassium 4.5 mmol/L (3.5-5.1) 02/07/22 16:35 Chloride 96 mmol/L (98-107) L 02/07/22 16:35 Carbon Dioxide 25 mmol/L (22-29) 02/07/22 16:35 Anion Gap 16.5 (5-19) 02/07/22 16:35 BUN 26 mg/dL (6-20) H 02/07/22 16:35 Creatinine 0.9 mg/dL (0.7-1.2) 02/07/22 16:35 GFR Calculation 89.0 mL/min (90-130) L 02/07/22 16:35 Glucose 87 mg/dL (65-115) 02/07/22 16:35 Calculated Osmolality 280 mOsm/kg (285-295) L 02/07/22 16:35 Calcium 9.7 mg/dL (8.5-10.5) 02/07/22 16:35 Total Bilirubin 0.4 mg/dL (0.15-1.2) 02/07/22 16:35 AST 34 U/L (0-40) 02/07/22 16:35 ALT 17 U/L (0-41) 02/07/22 16:35 Alkaline Phosphatase 73 IU/L (40-130) 02/07/22 16:35 Total Protein 8.3 g/dL (6.6-8.7) 02/07/22 16:35 Albumin 4.6 g/dL (3.5-5.2) 02/07/22 16:35 Globulin 3.7 g/dL (1.3-4.6) 02/07/22 16:35 Lipase 37 U/L (13-60) 02/07/22 16:35 Salicylates < 0.3 mg/dL (3-10) L 02/07/22 16:35 Urine Opiates Screen Negative ng/mL (Negative) 02/07/22 15:41 Acetaminophen < 5.0 ug/mL (10-30) L 02/07/22 16:35 Ur Barbiturates Screen Negative ng/mL (Negative) 02/07/22 15:41 Ur Phencyclidine Scrn Negative ng/mL (Negative) 02/07/22 15:41 Ur Amphetamines Screen Negative ng/mL (Negative) 02/07/22 15:41 U Benzodiazepines Scrn Negative ng/mL (Negative) 02/07/22 15:41 Urine Cocaine Screen Negative ng/mL (Negative) 02/07/22 15:41 U Marijuana (THC) Screen Positive ng/mL (Negative) H 02/07/22 15:41 Discharge Plan Discharge Patient Disposition: Admitted As Inpatient Admit Provider: Chas Forrest Clinical Impression: Bipolar disorder, Depression with suicidal ideation Condition: Stable Discharge Diet: Regular Discharge Activity: Resume usual activity Coding Level of Care Code ED Child Protective Investigator for Kaylahg Fwd Exam Comprehensive
[2022-02-07 16:28] LABS: Amphetamines Screen Urine Negative (Negative); Barbiturates Screen Urine Negative (Negative); Benzodiazepines Screen Urine Negative (Negative); Cocaine Screen Urine Negative (Negative); Opiate Screen Urine Negative (Negative); PCP Screen Urine Negative (Negative); THC Screen Urine Positive (Negative)
[2022-02-07 16:42] LABS: Basophils # 0.1 10^3/uL (0.0-0.1); Basophils % 0.5 %; Eosinophils # 0.1 10^3/uL (0.0-0.8); Hemoglobin 12.2 g/dL (11.7-16.6); Lymphocytes % 19.8 %; Mean Corpuscular Hemoglobin 27.7 pg (28.0-34.0); Mean Corpuscular Volume 83.9 fl (80-94); Mean Platelet Volume 10.4 fL (7.4-10.4); Monocytes # 0.8 10^3/uL (0.2-0.9); Monocytes % 7.3 %; Neutrophils # 7.26 10^3/uL (1.8-7.7); Nucleated Red Blood Cells % 0 %; Platelet Count 358 10^3/cmm (130-400); Red Blood Count 4.41 10^6/uL (4.1-5.3); Red Cell Distribution Width 13.5 % (12.1-15.1); White Blood Count 10.2 10^3/uL (4.0-10.0)
[2022-02-07 17:07] LABS: Alanine Aminotransferase 17 U/L (0-41); Albumin Level 4.6 g/dL (3.5-5.2); Alkaline Phosphatase 73 IU/L (40-130); Blood Urea Nitrogen 26 mg/dL (6-20); Calcium 9.7 mg/dL (8.5-10.5); Carbon Dioxide 25 mmol/L (22-29); Chloride 96 mmol/L (98-107); Globulin 3.7 g/dL (1.3-4.6); Glucose 87 mg/dL (65-115); Lipase 37 U/L (13-60); Osmolality Calculated 280 mOsm/kg (285-295); Sodium 133 mmol/L (136-145); Total Bilirubin 0.4 mg/dL (0.15-1.2); Total Protein 8.3 g/dL (6.6-8.7)
[2022-02-07 17:15] LABS: Acetaminophen < 5.0 ug/mL (10-30); Anion Gap 16.5 (5-19); Salicylate < 0.3 mg/dL (3-10)
[2022-02-07 17:16] LABS: Aspartate Amino Transferase 34 U/L (0-40); Potassium 4.5 mmol/L (3.5-5.1)
--- NOTE | 2022-02-07 18:27 | PC.NURSE ---
REPORT CALLED TO MIAN LOPEZ IN [facility].
[2022-02-07 18:52] VITALS: BP 136/86; PULSE 90; RESP 20; TEMP 36.7; O2SAT 96
[2022-02-07] MEDS: nicotine 4 mg lozenge MUCOUS MEM (20:21)
[2022-02-07] MEDS: trazodone 150 mg Tablet PO (20:29)
[2022-02-07] MEDS: gabapentin 300 mg Capsule 600 MG PO (20:29)
[2022-02-07] MEDS: divalproex ER 250 mg Tablet (24H) 750 MG PO (20:29)
[2022-02-07 21:05] VITALS: BP 136/86; PULSE 90; RESP 20; TEMP 36.7; O2SAT 96
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
[2022-02-08 06:00] VITALS: BP 104/67; PULSE 70; RESP 20; TEMP 36.8; O2SAT 98
[2022-02-08] MEDS: divalproex ER 500 mg Tablet (24H) PO (06:03)
[2022-02-08] MEDS: nicotine 4 mg lozenge MUCOUS MEM (06:19)
[2022-02-08] MEDS: OLANZapine 10 mg TABLET PO ×2 (08:28→19:52)
[2022-02-08] MEDS: gabapentin 300 mg Capsule 600 MG PO ×3 (08:29→19:50)
[2022-02-08] MEDS: methocarbamol 750 mg Tablet PO ×2 (08:30→19:51)
[2022-02-08 08:31] VITALS: BP 137/73
[2022-02-08] MEDS: losartan 50 mg Tablet 25 MG PO (08:31)
[2022-02-08] MEDS: naproxen 500 mg Tablet PO ×2 (08:33→19:49)
[2022-02-08] MEDS: OLANZapine 5 mg ODT PO (12:45)
[2022-02-08] MEDS: hyDROXYzine 25 mg Capsule 50 MG PO (12:45)
--- NOTE | 2022-02-08 12:50 | PC.NURSE ---
PRN VISTARIL & ZYPREXA ZYDIS VISTARIL 50 MG GIVEN PO PER PT C/O ANXIETY AND ZYPREXA ZYDIS 5 MG GIVEN SUBLINGUAL PER PT C/O AGITATION/PSYCHOSIS. PT PACING HALLWAY, LAUGHING INAPPROPRIATELY AND TALKING TO HIMSELF AT TIMES.
[2022-02-08] MEDS: nicotine 21 mg Patch 1 PATCH TRANSDERMA (12:57)
[2022-02-08 13:57] VITALS: BP 127/84; PULSE 94; RESP 20; TEMP 36.8; O2SAT 94
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
[2022-02-08 18:53] VITALS: BP 129/91; PULSE 102; TEMP 37.1; O2SAT 97
[2022-02-08] MEDS: divalproex ER 250 mg Tablet (24H) 750 MG PO (19:50)
[2022-02-08] MEDS: trazodone 150 mg Tablet PO (19:52)
--- NOTE | 2022-02-08 19:56 | PC.NURSE ---
Patient is anxious and wanting to go to bed. Patient requested medication be given early.
[2022-02-08 22:00] VITALS: BP 129/91; PULSE 102; RESP 20; TEMP 37.1; O2SAT 97
[2022-02-09] MEDS: nicotine 4 mg lozenge MUCOUS MEM (03:50)
[2022-02-09 06:00] VITALS: BP 114/72; PULSE 84; RESP 16; TEMP 36.6; O2SAT 99
[2022-02-09] MEDS: divalproex ER 500 mg Tablet (24H) PO (06:11)
[2022-02-09] MEDS: naproxen 500 mg Tablet PO ×2 (08:53→20:08)
[2022-02-09] MEDS: gabapentin 300 mg Capsule 600 MG PO ×3 (08:53→20:07)
[2022-02-09] MEDS: OLANZapine 10 mg TABLET PO ×2 (08:53→20:08)
[2022-02-09 08:54] VITALS: BP 114/72
[2022-02-09] MEDS: methocarbamol 750 mg Tablet PO ×2 (08:54→20:07)
[2022-02-09] MEDS: losartan 50 mg Tablet 25 MG PO (08:54)
[2022-02-09] MEDS: nicotine 21 mg Patch 1 PATCH TRANSDERMA (12:03)
[2022-02-09] MEDS: acetaminophen 325 mg Tablet 650 MG PO (13:02)
[2022-02-09 14:00] VITALS: BP 108/73; PULSE 78; RESP 18; TEMP 36.8; O2SAT 98
[2022-02-09] MEDS: OLANZapine 5 mg TABLET 15 MG PO (17:22)
--- NOTE | 2022-02-09 19:13 | P.NPUPN_ITS ---
Subjective NPU Subjective: Patient presents today reporting that he is feeling a little better. He is feeling like he does not really need to be here but we have a long discussion about some of the concerns about his behavior in community and his self talk and internal preoccupation that is seen on the unit. We had a discussion of the risks, benefits and alternatives to increasing his Zyprexa to 15 mg p.o. twice daily and he understood agreed proceed as is documented in this note. Mental Status Exam MSE Comments: This is an overweight, tall white male? in hospital scrubs with limited grooming and eye contact. No abnormal movements except for mild psychomotor agitation. Cooperative with exam in mild distress. Speech was more normal rate and slightly decreased volume and less mumbling quickly to himself throughout. Mood described as doing okay, affect is congruent. Thought process, more organized. Thought content: patient denies any suicidal or homicidal ideation, no delusions reported but had less persecutory and paranoid delusions noted, and denies any auditory or visual hallucinations, but often appears to be attending to internal stimuli.? Attention and concentration were limited and memory appeared reliable at points and unreliable at other times. He is alert and oriented three times. Insight and judgment are impaired. Impulse control is impaired. Vitals/I&O/Wt Last Vital Signs Temp 98.4 F 02/09/22 22:00 Pulse 85 02/09/22 22:00 Resp 16 02/09/22 22:00 BP 103/70 02/09/22 22:00 Pulse Ox 95 02/09/22 22:00 Data NPU : 02/07/22 16:35 02/07/22 16:35 A&P Assessment and plan (1) Methamphetamine use disorder, severe: Status: Acute (2) Cannabis use disorder, severe, dependence: Status: Acute (3) Depression with suicidal ideation: Status: Acute (4) Schizoaffective disorder, unspecified: Status: Chronic Qualifiers: Schizoaffective disorder type: unspecified Qualified Code(s): F25.9 - Schizoaffective disorder, unspecified (5) Anxiety: Status: Chronic (6) Essential (primary) hypertension: Status: Chronic Plan This is a 51 year old white male with a long history of trauma and addiction with genetic loading for mental health and addiction issues with continuing mental health challenges and methamphetamine use who presents expressing recent suicidal ideation with a plan, currently on medications and open to changing those medications. 1.? Continue current medications, but increase Zyprexa to 15 mg p.o. twice daily 2.? Encourage individual, group and milieu therapy 3.? Continue q-15 minute check for safety 4.? Recommend sober living treatment at the highest level of care to which the patient is willing to commit. 5.? We will attempt to get collateral information to better understand his medications. 6. Plan for discharge in the next 48 hours. Involuntary Hold Information 96 Hour Hold: 96 Hour Involuntary Admission: No 96 Hour Hold Ending Date: 02/02/22 Attestations U Medical Necessity Statement*: Inpatient hospitalization is medically necessary and the clinically appropriate intervention at this time. We will monitor medications and make changes as indicated. Likely length of stay is 1-3 days. Coding Level of Care Code Acute Aircraft Time Clerk for [facility] Ronid Diagnoses Methamphetamine use disorder, severe F15.20 Cannabis use disorder, severe, dependence F12.20 Depression with suicidal ideation F32.A; R45.851 Schizoaffective disorder, unspecified F25.9 Schizoaffective disorder type: unspecified Anxiety F41.9 Essential (primary) hypertension I10
[2022-02-09] MEDS: divalproex ER 250 mg Tablet (24H) 750 MG PO (20:07)
[2022-02-09] MEDS: trazodone 150 mg Tablet PO (20:07)
[2022-02-09 22:00] VITALS: BP 103/70; PULSE 85; RESP 16; TEMP 36.9; O2SAT 95
[2022-02-10] MEDS: divalproex ER 500 mg Tablet (24H) PO (05:26)
[2022-02-10 06:00] VITALS: BP 128/84; PULSE 96; RESP 17; TEMP 36.4; O2SAT 94
[2022-02-10] MEDS: OLANZapine 5 mg TABLET 15 MG PO (08:45)
[2022-02-10] MEDS: naproxen 500 mg Tablet PO (08:46)
[2022-02-10] MEDS: gabapentin 300 mg Capsule 600 MG PO ×2 (08:46→13:46)
[2022-02-10 08:47] VITALS: BP 128/84
[2022-02-10] MEDS: losartan 50 mg Tablet 25 MG PO (08:47)
[2022-02-10] MEDS: methocarbamol 750 mg Tablet PO (08:47)
[2022-02-10] MEDS: nicotine 4 mg lozenge MUCOUS MEM (08:47)
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
--- NOTE | 2022-02-10 12:09 | DCPLANNER ---
Imm given to pt and explained rights. Copy placed in pt chart.
[2022-02-10 13:17] VITALS: BP 128/84; PULSE 78; RESP 17; TEMP 36.6; O2SAT 97
== END 2022-02-10 14:01 | disposition home or self-care (01) | DRG 885 ==
LOC: ER 17:33 → NP 02-08 06:19
PROVIDERS: Admitting Provider Psychiatry & Neurology Psychiatry; Emergency Provider Emergency Medicine; Visit Provider Psychiatry & Neurology Psychiatry
DX: F25.1 Schizoaffective disorder, depressive type (principal); R45.851 Suicidal ideations; F15.20 Other stimulant dependence, uncomplicated; G54.2 Cervical root disorders, not elsewhere classified; F17.200 Nicotine dependence, unspecified, uncomplicated; F12.20 Cannabis dependence, uncomplicated
CPT/HCPCS: 80053; 80306; 80307; 83690; 85025; 97150; 97165; 99285

== ENCOUNTER → 2022-03-10 08:08 | Outpatient (BNVA) | payer MEDICAID, SELFPAY | PROVIDERS: Visit Provider Nurse Practitioner | DX: F31.9 Bipolar disorder, unspecified (principal); I10 Essential (primary) hypertension | CPT/HCPCS: 80053; 80061; 80164 ==

== ENCOUNTER 2022-03-17 20:01 | Inpatient (IN) | payer MEDICARE, MEDICAID, SELFPAY ==
[2022-03-17 20:07] VITALS: BP 141/86; PULSE 84; RESP 20; O2SAT 96; BMI 37.5
--- NOTE | 2022-03-17 20:13 | ED_ITS ---
HPI - General Adult General: Chief complaint: Psychiatric Symptoms Stated complaint: si Time Seen by Provider: 03/17/22 20:05 History of Present Illness: HPI: [51]yo patient w/ hx of anxiety and bipolar disorder BIBA for SI and worsening depression. On arrival, the patient is AAOx3 and cooperative with my evaluation. No focal complaints of chest pain, shortness of breath, palpitations, N/V, focal GI/ complaints. Currently denies HI. No complaints of hallucinations. Onset: acute on chronic Duration: ongoing Location: home Severity: severe Associated symptoms: Deny chest pain, dyspnea, nausea, rash, palpitations or vomiting Review of Systems Const: Denies: fever(s) or chills Eyes: Denies: change in vision ENMT: Denies: mouth pain Card: Denies: chest pain or palpitations Resp: Denies: dyspnea or non-productive cough GI: Denies: abdominal pain, nausea, vomiting or diarrhea : Denies: dysuria Musc: Denies: extremity pain Skin/Breast: Denies: rash or new lesions Neuro: Denies: weakness in extremities Psych: Reports: depression and suicidal ideation Eitan/Lymph: Denies: easy bruising PFSH ED PFSH: Medical History Anxiety Bipolar depression Bipolar disorder Cervical plexus neuropathy Myofascial pain syndrome Schizoaffective disorder, unspecified Surgical History History of knee surgery left Family History Denies family history of CAD (coronary artery disease) Family history of premature coronary artery disease Social History Smoking and tobacco status: current every day smoker Second hand smoke exposure: Yes Smoking risk assessment/counseling performed?: Yes Alcohol intake: unknown Desire information about alcohol rehabilitation?: No Counseling given: No Desire information about substance/drug rehabilitation?: No Counseling given: No Caregiver/support person: Yes Lives independently: Yes Household members: none Housing: Other Marital status: Number of children: 4 service: No Current occupational status: other Pets and animals: No History of recent travel: No Current gender identity: Male Physical Exam Const: COMMON NORMALS: alert HENMT: COMMON NORMALS: atraumatic HEAD & SCALP: atraumatic MOUTH: moist mucous membranes not abnormal Eye: COMMON NORMALS: EOMs intact bilaterally and conjunctivae normal C ONJUNCTIVA: Yes conjunctivae normal Neck/C-Spine: COMMON NORMALS: full ROM and supple Resp: COMMON NORMALS: normal respiratory effort and clear to auscultation bilaterally AUSCULTATION: clear to auscultation bilaterally Cardio: COMMON NORMALS: regular rate RATE: regular rate GI: COMMON NORMALS: Soft to palpation and non-tender PALPATION: Yes Soft to palpation Extremity: COMMON NORMALS: full ROM Neuro: SENSORIUM/ORIENTATION: Yes alert MOTOR EXAM: No Abnormal motor strength present and Other motor observations present (no focal motor deficits) Psych: COMMON NORMALS: speech normal SPEECH: Yes normal speech MOOD & AFFECT: Yes depressed mood Course Vital Signs: Vital signs: Vital Signs Temperature 98.6 F 03/17/22 20:14 Pulse Rate 84 03/17/22 20:07 Respiratory Rate 20 H 03/17/22 20:07 Blood Pressure 141/86 03/17/22 20:07 Pulse Oximetry 96 03/17/22 20:07 Oxygen Delivery Me thod 03/17/22 20:07 MDM - General Adult Medical Decision Making [51]yo patient w/ hx of bipolar disorder and anxiety presenting for SI with depression. HDS, exam within normal limit Thoughts are linear and organized, and the patient has no AH/VH, or HI. Clinically the patient displays no overt toxidrome; they are well appearing, with low suspicion for toxic ingestion given history and exam. Symptoms unlikely 2/2 anemia, hypothyroidism, infection, or ICH. Workup: CBC, CMP, Lipase, salicylate/tylenol, UDS Lab findings: wnl, +amphetamine in the urine [9:30pm] On reassessment, labs and workup wnl. Patient is hemodynamically stable with no acute medical complaints. Case discussed with psychiatric provider Dr. Forrest at [facility] psych inpatient with recommendation for admission Disposition: Psych Lab Data : 03/17/22 21:40 03/17/22 21:40 Laboratory Results WBC 8.2 10^3/uL (4.0-10.0) 03/17/22 21:40 RBC 3.87 10^6/uL (4.1-5.3) L 03/17/22 21:40 Hgb 10.8 g/dL (11.7-16.6) L 03/17/22 21:40 Hct 33.6 % (42.0-52.0) L 03/17/22 21:40 MCV 86.8 fl (80-94) 03/17/22 21:40 MCH 27.9 pg (28.0-34.0) L 03/17/22 21:40 MCHC 32.1 g/dL (30.0-36.0) 03/17/22 21:40 RDW 14.5 % (12.1-15.1) 03/17/22 21:40 Plt Count 220 10^3/cmm (130-400) 03/17/22 21:40 MPV 10.7 fL (7.4-10.4) H 03/17/22 21:40 Neut % (Auto) 45.2 % 03/17/22 21:40 Lymph % (Auto) 40.6 % 03/17/22 21:40 [place] % (Auto) 6.4 % 03/17/22 21:40 Eos % (Auto) 7.0 % 03/17/22 21:40 Baso % (Auto) 0.6 % 03/17/22 21:40 Neut # (Auto) 3.69 10^3/uL (1.8-7.7) 03/17/22 21:40 Lymph # (Auto) 3.3 10^3/uL (0.8-4.8) 03/17/22 21:40 [place] # (Auto) 0.5 10^3/uL (0.2-0.9) 03/17/22 21:40 Eos # (Auto) 0.6 10^3/uL (0.0-0.8) 03/17/22 21:40 Baso # (Auto) 0.1 10^3/uL (0.0-0.1) 03/17/22 21:40 Nucleated RBC % (auto) 0 % 03/17/22 21:40 Nucleated RBCs # 0.0 /100WBC 03/17/22 21:40 Urine Opiates Screen Negative ng/mL (Negative) 03/17/22 20:40 Ur Barbiturates Screen Negative ng/mL (Negative) 03/17/22 20:40 Ur Phencyclidine Scrn Negative ng/mL (Negative) 03/17/22 20:40 Ur Amphetamines Screen Positive ng/mL (Negative) H 03/17/22 20:40 U Benzodiazepines Scrn Negative ng/mL (Negative) 03/17/22 20:40 Urine Cocaine Screen Negative ng/mL (Negative) 03/17/22 20:40 U Marijuana (THC) Screen Negative ng/mL (Negative) 03/17/22 20:40 Discharge Plan Discharge Patient Disposition: Admitted As Inpatient Clinical Impression: Depression with suicidal ideation Condition: Stable Coding Level of Care Code ED Junior Project Manager for Rosie Fwd Exam Comprehensive
[2022-03-17 20:14] VITALS: TEMP 37
[2022-03-17 21:29] LABS: Amphetamines Screen Urine Positive (Negative); Barbiturates Screen Urine Negative (Negative); Benzodiazepines Screen Urine Negative (Negative); Cocaine Screen Urine Negative (Negative); Opiate Screen Urine Negative (Negative); PCP Screen Urine Negative (Negative); THC Screen Urine Negative (Negative)
[2022-03-17 21:55] LABS: Basophils # 0.1 10^3/uL (0.0-0.1); Basophils % 0.6 %; Eosinophils # 0.6 10^3/uL (0.0-0.8); Hematocrit 33.6 % (42.0-52.0); Hemoglobin 10.8 g/dL (11.7-16.6); Lymphocytes # 3.3 10^3/uL (0.8-4.8); Lymphocytes % 40.6 %; Mean Corpuscular HGB Conc 32.1 g/dL (30.0-36.0); Mean Corpuscular Hemoglobin 27.9 pg (28.0-34.0); Mean Corpuscular Volume 86.8 fl (80-94); Mean Platelet Volume 10.7 fL (7.4-10.4); Monocytes # 0.5 10^3/uL (0.2-0.9); Monocytes % 6.4 %; Neutrophils # 3.69 10^3/uL (1.8-7.7); Neutrophils % 45.2 %; Nucleated Red Blood Cells % 0 %; Platelet Count 220 10^3/cmm (130-400); Red Blood Count 3.87 10^6/uL (4.1-5.3); Red Cell Distribution Width 14.5 % (12.1-15.1); White Blood Count 8.2 10^3/uL (4.0-10.0)
[2022-03-17 22:17] LABS: Alanine Aminotransferase 10 U/L (0-41); Albumin Level 3.9 g/dL (3.5-5.2); Alkaline Phosphatase 62 IU/L (40-130); Anion Gap 11.5 (5-19); Aspartate Amino Transferase 15 U/L (0-40); Blood Urea Nitrogen 8 mg/dL (6-20); Calcium 9.5 mg/dL (8.5-10.5); Carbon Dioxide 28 mmol/L (22-29); Chloride 105 mmol/L (98-107); Globulin 2.8 g/dL (1.3-4.6); Glomerular Filtration Rate 70.6 mL/min (90-130); Glucose 92 mg/dL (65-115); Lipase 33 U/L (13-60); Osmolality Calculated 290 mOsm/kg (285-295); Potassium 3.5 mmol/L (3.5-5.1); Sodium 141 mmol/L (136-145); Total Bilirubin 0.2 mg/dL (0.15-1.2); Total Protein 6.7 g/dL (6.6-8.7)
[2022-03-17 22:21] LABS: Acetaminophen < 5.0 ug/mL (10-30); Salicylate < 0.3 mg/dL (3-10)
[2022-03-18 06:47] VITALS: BP 124/76; PULSE 60; RESP 14; O2SAT 100
[2022-03-18 11:28] VITALS: BP 123/79; PULSE 75; RESP 16; O2SAT 97
[2022-03-18] MEDS: nicotine 21 mg Patch 1 PATCH TRANSDERMA (13:18)
[2022-03-18 17:16] VITALS: BP 123/79; PULSE 75; RESP 16; TEMP 37; O2SAT 97
[2022-03-18 19:56] VITALS: BP 99/65; PULSE 66; RESP 15; TEMP 36.8; O2SAT 99
[2022-03-18] MEDS: gabapentin 300 mg Capsule 600 MG PO (21:53)
[2022-03-18] MEDS: divalproex ER 250 mg Tablet (24H) 750 MG PO (21:54)
[2022-03-18] MEDS: trazodone 150 mg Tablet PO (21:55)
[2022-03-19 06:00] VITALS: BP 131/78; PULSE 80; RESP 15; TEMP 36.8; O2SAT 97
[2022-03-19] MEDS: gabapentin 300 mg Capsule 600 MG PO ×3 (08:26→20:07)
[2022-03-19] MEDS: nicotine 21 mg Patch 1 PATCH TRANSDERMA (08:26)
[2022-03-19 08:27] VITALS: BP 131/78
[2022-03-19] MEDS: divalproex ER 500 mg Tablet (24H) PO (08:27)
[2022-03-19] MEDS: losartan 50 mg Tablet 25 MG PO (08:27)
[2022-03-19] MEDS: methocarbamol 750 mg Tablet PO ×2 (08:27→17:05)
[2022-03-19] MEDS: naproxen 500 mg Tablet PO ×2 (08:29→17:06)
[2022-03-19] MEDS: OLANZapine 5 mg TABLET 15 MG PO ×2 (08:29→17:06)
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
[2022-03-19 13:53] VITALS: BP 164/92; PULSE 90; RESP 20; TEMP 36.7; O2SAT 97
[2022-03-19] MEDS: hyDROXYzine 25 mg Capsule 50 MG PO (20:07)
[2022-03-19] MEDS: divalproex ER 250 mg Tablet (24H) 750 MG PO (20:07)
[2022-03-19] MEDS: trazodone 150 mg Tablet PO (20:07)
[2022-03-19 20:19] VITALS: BP 138/82; PULSE 77; RESP 20; TEMP 37.2; O2SAT 98
[2022-03-20 06:00] VITALS: BP 117/81; PULSE 91; RESP 19; TEMP 36.8; O2SAT 99
--- NOTE | 2022-03-20 06:27 | P.NPUPN_ITS ---
Subjective NPU Subjective: Patient presents today reporting that he is feeling okay. We discussed the fact that he seems much better overall compared to previous presentations. We agreed that we would reach out to his current person/people that he lives with and make sure that they do not have any concerns. We discus sed work with the treatment team tomorrow making sure he has appointments etc. and the likelihood of discharge tomorrow. Mental Status Exam MSE Comments: This is an overweight, tall white male? in hospital scrubs with adequate grooming and eye contact. No abnormal movements except for mild psychomotor retardation. Cooperative with exam in no acute distress. Speech was more normal rate and slightly decreased volume. Mood described as pretty good, affect is congruent. Thought process appeared organized. Thought content: patient denies any suicidal or homicidal ideation, no delusions reported or noted, and denies any auditory or visual hallucinations.? Attention and concentration appeared intact and memory appeared reliable, but none were formally tested. He is alert and oriented three times. Insight and judgment are fair. Impulse control is limited. Vitals/I&O/Wt Last Vital Signs Temp 98.9 F 03/19/22 20:19 Pulse 77 03/19/22 20:19 Resp 20 H 03/19/22 20:19 BP 138/82 03/19/22 20:19 Pulse Ox 98 03/19/22 20:19 O2 Del Method 03/18/22 17:18 Data NPU : 03/17/22 21:40 03/17/22 21:40 A&P Assessment and plan (1) Methamphetamine use disorder, severe: Status: Chronic (2) Cannabis use disorder, severe, dependence: Status: Acute (3) Depression with suicidal ideation: Status: Resolved (4) Schizoaffective disorder, unspecified: Status: Chronic Qualifiers: Schizoaffective disorder type: unspecified Qualified Code(s): F25.9 - Schizoaffective disorder, unspecified (5) Anxiety: Status: Chronic (6) Essential (primary) hypertension: Status: Chronic Plan This is a 51 year old white male with a long history of trauma and addiction with genetic loading for mental health and addiction issues with continuing mental health challenges and methamphetamine use who presents expressing some recent misunderstanding with a neighbor currently on medications and denying any need to change those medications. 1.? Continue current medications. We will monitor whether it he changes the necessary or appropriate 2.? Encourage individual, group and milieu therapy 3.? Continue q-15 minute check for safety 4.? Recommend sober living treatment at the highest level of care to which the patient is willing to commit. 5.? We will get collateral information with his likely be a short stay. Possible discharge in the morning. Involuntary Hold Information 96 Hour Hold: 96 Hour Involuntary Admission: No 96 Hour Hold Ending Date: 02/02/22 Attestations NPU Medical Necessity Statement*: Inpatient hospitalization is medically necessary and the clinically appropriate intervention at this time. We will monitor medications and make changes as indicated. Patient will be in the hospital for over two midnights. Likely length of stay is 1-3 days. Coding Level of Care Code Acute E Learning Specialist for [employer] Fwd Diagnoses Methamphetamine use disorder, severe F15.20 Cannabis use disorder, severe, dependence F12.20 Depression with suicidal ideation F32.A; R45.851 Schizoaffective disorder, unspecified F25.9 Schizoaffective disorder type: unspecified Anxiety F41.9 Essential (primary) hypertension I10
[2022-03-20] MEDS: gabapentin 300 mg Capsule 600 MG PO ×3 (09:22→20:14)
[2022-03-20] MEDS: divalproex ER 500 mg Tablet (24H) PO (09:22)
[2022-03-20] MEDS: OLANZapine 5 mg TABLET 15 MG PO ×2 (09:22→17:09)
[2022-03-20] MEDS: naproxen 500 mg Tablet PO ×2 (09:22→17:09)
[2022-03-20] MEDS: methocarbamol 750 mg Tablet PO ×2 (09:22→17:09)
[2022-03-20 09:23] VITALS: BP 117/81
[2022-03-20] MEDS: losartan 50 mg Tablet 25 MG PO (09:23)
[2022-03-20 14:00] VITALS: BP 130/86; PULSE 75; RESP 18; TEMP 36.7; O2SAT 96
[2022-03-20] MEDS: nicotine 21 mg Patch 1 PATCH TRANSDERMA (15:02)
[2022-03-20 20:05] VITALS: BP 110/71; PULSE 78; RESP 16; TEMP 36.9; O2SAT 95
[2022-03-20] MEDS: trazodone 150 mg Tablet PO (20:14)
[2022-03-20] MEDS: divalproex ER 250 mg Tablet (24H) 750 MG PO (20:14)
[2022-03-20] MEDS: docusate sodium 100 mg Capsule PO (21:25)
[2022-03-21 06:00] VITALS: BP 116/74; PULSE 67; RESP 18; TEMP 36.8; O2SAT 97
[2022-03-21 08:24] VITALS: BP 116/74
[2022-03-21] MEDS: losartan 50 mg Tablet 25 MG PO (08:24)
[2022-03-21] MEDS: gabapentin 300 mg Capsule 600 MG PO ×2 (08:24→14:17)
[2022-03-21] MEDS: methocarbamol 750 mg Tablet PO ×2 (08:24→17:36)
[2022-03-21] MEDS: divalproex ER 500 mg Tablet (24H) PO (08:24)
[2022-03-21] MEDS: nicotine 21 mg Patch 1 PATCH TRANSDERMA (08:25)
[2022-03-21] MEDS: naproxen 500 mg Tablet PO ×2 (08:25→17:37)
[2022-03-21] MEDS: OLANZapine 5 mg TABLET 15 MG PO ×2 (08:25→17:36)
[2022-03-21] MEDS: docusate sodium 100 mg Capsule PO (08:44)
[2022-03-21] MEDS: hyDROXYzine 25 mg Capsule 50 MG PO (08:46)
--- NOTE | 2022-03-21 12:45 | DCPLANNER ---
IMM completed 03/21/22 @ [id number]. Pt was given a copy of rights.
[2022-03-21 14:00] VITALS: BP 132/89; PULSE 91; RESP 12; TEMP 36.6; O2SAT 94
[2022-03-21 14:35] VITALS: BP 132/89; PULSE 91; RESP 12; TEMP 36.6; O2SAT 94
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
== END 2022-03-21 19:28 | disposition home or self-care (01) | DRG 881 ==
LOC: ER 20:34 → ER IP 03-18 06:04 → NP 03-18 15:58
PROVIDERS: Admitting Provider Psychiatry & Neurology Psychiatry; Emergency Provider Emergency Medicine; Visit Provider Psychiatry & Neurology Psychiatry
DX: F32.A Depression, unspecified (principal); F15.20 Other stimulant dependence, uncomplicated; R45.851 Suicidal ideations; F25.9 Schizoaffective disorder, unspecified; F12.20 Cannabis dependence, uncomplicated; F41.9 Anxiety disorder, unspecified; I10 Essential (primary) hypertension; F17.200 Nicotine dependence, unspecified, uncomplicated; Z62.810 Personal history of physical and sexual abuse in childhood; Z81.4 Family history of other substance abuse and dependence; Z81.8 Family history of other mental and behavioral disorders
CPT/HCPCS: 80053; 80306; 80307; 83690; 85025; 97150; 97165; 99285

== ENCOUNTER 2022-03-27 19:09 | Emergency (ER) | payer MEDICAID, SELFPAY ==
[2022-03-27 19:17] VITALS: BP 151/112; PULSE 91; RESP 18; TEMP 37; O2SAT 96; BMI 28.5
--- NOTE | 2022-03-27 19:32 | ED_ITS ---
Documented by User: Alfredo Fernández MD 03/27/22 23:08 HPI - General Adult General: Chief complaint: Psychiatric Symptoms Stated complaint: HALLUCINATIONS Time Seen by Provider: 03/27/22 19:21 History of Present Illness: HPI: [51]yo patient w/ hx of depression BIBA for suicidal ideation with depression. Patient tells me that she has been off of meds for 2 days. Patient in addition, patient tells me that earlier today about an hour ago he attempted to overdose. On further questioning, patient does not remember what medicine he took. Patient denies taking any Tylenol or salicylate. For On arrival, the patient is AAOx3 and cooperative with my evaluation. No focal complaints of chest pain, shortness of breath, palpitations, N/V, focal GI/ complaints. Currently denies SI/HI. No complaints of hallucinations. Onset: acute on chronic Duration: ongoing Location: home Severity: severe Associated symptoms: Deny chest pain, dyspnea, nausea, rash, palpitations or vomiting Review of Systems Const: Denies: fever(s) or chills Eyes: Denies: change in vision ENMT: Denies: mouth pain Card: Denies: chest pain or palpitations Resp: Denies: dyspnea or non-productive cough GI: Denies: abdominal pain, nausea, vomiting or diarrhea : Denies: dysuria Musc: Denies: extremity pain Skin/Breast: Denies: rash or new lesions Neuro: Denies: weakness in extremities Psych: Reports: depression Eitan/Lymph: Denies: easy bruising PFSH ED PFSH: Medical History Anxiety Bipolar depression Bipolar disorder Cervical plexus neuropathy Myofascial pain syndrome Schizoaffective disorder, unspecified Surgical History History of knee surgery left Family History Denies family history of CAD (coronary artery disease) Family history of premature coronary artery disease Social History Smoking and tobacco status: current every day smoker Second hand smoke exposure: Yes Smoking risk assessment/counseling performed?: Yes Alcohol intake: unknown Desire information about alcohol rehabilitation?: No Counseling given: No Desire information about substance/drug rehabilitation?: No Counseling given: No Caregiver/support person: Yes Lives independently: Yes Household members: none Housing: Other Marital status: Number of children: 4 service: No Current occupational status: other Pets and animals: No History of recent travel: No Current gender identity: Male Physical Exam Const: COMMON NORMALS: alert HENMT: COMMON NORMALS: atraumatic HEAD & SCALP: atraumatic MOUTH: moist mucous membranes not abnormal Eye: COMMON NORMALS: EOMs intact bilaterally and conjunctivae normal CONJUNCTIVA: Yes conjunctivae normal Neck/C-Spine: COMMON NORMALS: full ROM and supple Resp: COMMON NORMALS: normal respiratory effort and clear to auscultation bilaterally AUSCULTATION: clear to auscultation bilaterally Cardio: COMMON NORMALS: regular rate RATE: regular rate GI: COMMON NORMALS: Soft to palpation and non-tender PALPATION: Yes Soft to palpation Extremity: COMMON NORMALS: full ROM Neuro: SENSORIUM/ORIENTATION: Yes alert MOTOR EXAM: No Abnormal motor strength present and Other motor observations present (no focal motor deficits) Psych: COMMON NORMALS: speech normal SPEECH: Yes normal speech MOOD & AFFECT: Yes depressed mood Course Vital Signs: Vital signs: Vital Signs Temperature 98.6 F 03/27/22 19:17 Pulse Rate 91 03/27/22 19:17 Respiratory Rate 18 03/27/22 19:17 Blood Pressure 151/112 03/27/22 19:17 Pulse Oximetry 96 03/27/22 19:17 Oxygen Delivery Me thod 03/27/22 19:17 MDM - General Adult Medical Decision Making [51]yo patient w/ hx of bipolar disorder, schizophrenia presenting for SI with plan. HDS, exam within normal limit Thoughts are linear and organized, and the patient has no AH/VH, or HI. Clinically the patient displays no overt toxidrome; they are well appearing, with low suspicion for toxic ingestion given history and exam. Symptoms unlikely 2/2 anemia, hypothyroidism, infection, or ICH. Workup: CBC, CMP, Lipase, salicylate/tylenol, serum ethanol, UDS Case signed out to Dr. Cotton Lab Data : 03/27/22 19:35 03/27/22 19:35 Radiology Impressions Chest X-Ray 03/27/22 22:09 IMPRESSION: 1. No acute cardiopulmonary process. 2. Incidental/nonacute findings are listed in the report. Laboratory Results WBC 10.3 10^3/uL (4.0-10.0) H 03/27/22 19:35 RBC 4.06 10^6/uL (4.1-5.3) L 03/27/22 19:35 Hgb 11.5 g/dL (11.7-16.6) L 03/27/22 19:35 Hct 35.3 % (42.0-52.0) L 03/27/22 19:35 MCV 86.9 fl (80-94) 03/27/22 19:35 MCH 28.3 pg (28.0-34.0) 03/27/22 19: MCHC 32.6 g/dL (30.0-36.0) 03/27/22 19:35 RDW 15.0 % (12.1-15.1) 03/27/22 19:35 Plt Count 322 10^3/cmm (130-400) 03/27/22 19:35 MPV 10.1 fL (7.4-10.4) 03/27/22 19:35 Neut % (Auto) 71.5 % 03/27/22 19:35 Lymph % (Auto) 15.3 % 03/27/22 19:35 [place] % (Auto) 7.2 % 03/27/22 19:35 Eos % (Auto) 5.2 % 03/27/22 19:35 Baso % (Auto) 0.5 % 03/27/22 19:35 Neut # (Auto) 7.35 10^3/uL (1.8-7.7) 03/27/22 19:35 Lymph # (Auto) 1.6 10^3/uL (0.8-4.8) 03/27/22 19:35 [place] # (Auto) 0.7 10^3/uL (0.2-0.9) 03/27/22 19:35 Eos # (Auto) 0.5 10^3/uL (0.0-0.8) 03/27/22 19:35 Baso # (Auto) 0.1 10^3/uL (0.0-0.1) 03/27/22 19:35 Nucleated RBC % (auto) 0 % 03/27/22 19:35 Nucleated RBCs # 0.0 /100WBC 03/27/22 19:35 Sodium 139 mmol/L (136-145) 03/27/22 19:35 Potassium 3.4 mmol/L (3.5-5.1) L 03/27/22 19:35 Chloride 102 mmol/L (98-107) 03/27/22 19:35 Carbon Dioxide 24 mmol/L (22-29) 03/27/22 19:35 Anion Gap 16.4 (5-19) 03/27/22 19:35 BUN 18 mg/dL (6-20) 03/27/22 19:35 Creatinine 0.9 mg/dL (0.7-1.2) 03/27/22 19:35 GFR Calculation 89.0 mL/min (90-130) L 03/27/22 19:35 Glucose 116 mg/dL (65-115) H 03/27/22 19:35 Calculated Osmolality 291 mOsm/kg (285-295) 03/27/22 19:35 Calcium 9.6 mg/dL (8.5-10.5) 03/27/22 19:35 Total Bilirubin 0.3 mg/dL (0.15-1.2) 03/27/22 19:35 AST 18 U/L (0-40) 03/27/22 19:35 ALT 9 U/L (0-41) 03/27/22 19:35 Alkaline Phosphatase 77 IU/L (40-130) 03/27/22 19:35 Total Protein 7.7 g/dL (6.6-8.7) 03/27/22 19:35 Albumin 3.9 g/dL (3.5-5.2) 03/27/22 19:35 Globulin 3.8 g/dL (1.3-4.6) 03/27/22 19:35 Lipase 37 U/L (13-60) 03/27/22 19:35 Salicylates 0.5 mg/dL (3-10) L 03/27/22 19:35 Acetaminophen < 5.0 ug/mL (10-30) L 03/27/22 19:35 Ethyl Alcohol < 10 mg/dL (0-10) 03/27/22 19:35 SARS-CoV-2 Ag (Rapid) Negative (Negative) 03/27/22 22:26 Discharge Plan Discharge Patient Disposition: Home Clinical Impression: Chronic schizophrenia Condition: Stable Prescriptions: No Action methocarbamol 750 mg tablet 750 mg PO BID Qty: 60 2RF naproxen 500 mg tablet 500 mg PO BID 30 Days Qty: 60 2RF Hold Instructions: Resume on 02/13/22. valsartan [Diovan] 80 mg tablet 80 mg PO DAILY Qty: 30 2RF Hold Instructions: Resume on 02/13/22. gabapentin 600 mg tablet 600 mg PO TID 30 Days Qty: 90 2RF trazodone 150 mg tablet 150 mg PO BEDTIME 30 Days Qty: 30 2RF Depakote ER 500 mg tablet extended release 24 hr 500 mg PO DAILY 30 Days Qty: 30 1RF Zyprexa 15 mg tablet 15 mg PO BID Qty: 60 1RF B-complex with vitamin C Tablet 1 tab PO DAILY Qty: 30 1RF Depakote ER 250 mg tablet extended release 24 hr 750 mg PO BEDTIME 30 Days Qty: 90 1RF Discharge Orders: Discharge ED (Routine); Ordered 03/28/22 Ordered By: Cayden Cotton Discharge Diet: Advance as tolerated Discharge Activity: Resume usual activity Patient Instructions: Chest Pain (ED) Coding Level of Care Code ED Operations Systems Specialist for Chg Fwd Exam Comprehensive Documented by User: Cayden Cotton MD 03/28/22 01:40 HPI - General Adult General: Chief complaint: Psychiatric Symptoms Stated complaint: HALLUCINATIONS Time Seen by Provider: 03/27/22 19:21 PFSH ED PFSH: Medical History Anxiety Bipolar depression Bipolar disorder Cervical plexus neuropathy Myofascial pain syndrome Schizoaffective disorder, unspecified Surgical History History of knee surgery left Family History Denies family history of CAD (coronary artery disease) Family history of premature coronary artery disease Social History Smoking and tobacco status: current every day smoker Second hand smoke exposure: Yes Smoking risk assessment/counseling performed?: Yes Alcohol intake: unknown Desire information about alcohol rehabilitation?: No Counseling given: No Desire information about substance/drug rehabilitation?: No Counseling given: No Caregiver/support person: Yes Lives independently: Yes Household members: none Housing: Other Marital status: Number of children: 4 service: No Current occupational status: other Pets and animals: No History of recent travel: No Current gender identity: Male Course Vital Signs: Vital signs: Vital Signs Temperature 98.6 F 03/27/22 19:17 Pulse Rate 91 03/27/22 19:17 Respiratory Rate 18 03/27/22 19:17 Blood Pressure 151/112 03/27/22 19:17 Pulse Oximetry 96 03/27/22 19:17 Oxygen Delivery Me thod 03/27/22 19:17 MDM - General Adult Medical Decision Making [51]yo patient w/ hx of bipolar disorder, schizophrenia presenting for SI with plan. HDS, exam within normal limit Thoughts are linear and organized, and the patient has no AH/VH, or HI. Clinically the patient displays no overt toxidrome; they are well appearing, with low suspicion for toxic ingestion given history and exam. Symptoms unlikely 2/2 anemia, hypothyroidism, infection, or ICH. Workup: CBC, CMP, Lipase, salicylate/tylenol, serum ethanol, UDS Case signed out to Dr. Cotton Patient presents here initially for possible overdose he is actually unsure if he took any meds his blood work here is normal he is awake and alert Dr. Forrest evaluated he is not homicidal or suicidal he has been observed here for 6 hours he is stable for discharge at this time. Lab Data : 03/27/22 19:35 03/27/22 19:35 Radiology Impressions Chest X-Ray 03/27/22 22:09 IMPRESSION: 1. No acute cardiopulmonary process. 2. Incidental/nonacute findings are listed in the report. Laboratory Results WBC 10.3 10^3/uL (4.0-10.0) H 03/27/22 19:35 RBC 4.06 10^6/uL (4.1-5.3) L 03/27/22 19:35 Hgb 11.5 g/dL (11.7-16.6) L 03/27/22 19:35 Hct 35.3 % (42.0-52.0) L 03/27/22 19:35 MCV 86.9 fl (80-94) 03/27/22 19:35 MCH 28.3 pg (28.0-34.0) 03/27/22 19: MCHC 32.6 g/dL (30.0-36.0) 03/27/22 19:35 RDW 15.0 % (12.1-15.1) 03/27/22 19:35 Plt Count 322 10^3/cmm (130-400) 03/27/22 19:35 MPV 10.1 fL (7.4-10.4) 03/27/22 19:35 Neut % (Auto) 71.5 % 03/27/22 19:35 Lymph % (Auto) 15.3 % 03/27/22 19:35 Weston % (Auto) 7.2 % 03/27/22 19:35 Eos % (Auto) 5.2 % 03/27/22 19:35 Baso % (Auto) 0.5 % 03/27/22 19:35 Neut # (Auto) 7.35 10^3/uL (1.8-7.7) 03/27/22 19:35 Lymph # (Auto) 1.6 10^3/uL (0.8-4.8) 03/27/22 19:35 [place]on # (Auto) 0.7 10^3/uL (0.2-0.9) 03/27/22 19:35 Eos # (Auto) 0.5 10^3/uL (0.0-0.8) 03/27/22 19:35 Baso # (Auto) 0.1 10^3/uL (0.0-0.1) 03/27/22 19:35 Nucleated RBC % (auto) 0 % 03/27/22 19:35 Nucleated RBCs # 0.0 /100WBC 03/27/22 19:35 Sodium 139 mmol/L (136-145) 03/27/22 19:35 Potassium 3.4 mmol/L (3.5-5.1) L 03/27/22 19:35 Chloride 102 mmol/L (98-107) 03/27/22 19:35 Carbon Dioxide 24 mmol/L (22-29) 03/27/22 19:35 Anion Gap 16.4 (5-19) 03/27/22 19:35 BUN 18 mg/dL (6-20) 03/27/22 19:35 Creatinine 0.9 mg/dL (0.7-1.2) 03/27/22 19:35 GFR Calculation 89.0 mL/min (90-130) L 03/27/22 19:35 Glucose 116 mg/dL (65-115) H 03/27/22 19:35 Calculated Osmolality 291 mOsm/kg (285-295) 03/27/22 19:35 Calcium 9.6 mg/dL (8.5-10.5) 03/27/22 19:35 Total Bilirubin 0.3 mg/dL (0.15-1.2) 03/27/22 19:35 AST 18 U/L (0-40) 03/27/22 19:35 ALT 9 U/L (0-41) 03/27/22 19:35 Alkaline Phosphatase 77 IU/L (40-130) 03/27/22 19:35 Total Protein 7.7 g/dL (6.6-8.7) 03/27/22 19:35 Albumin 3.9 g/dL (3.5-5.2) 03/27/22 19:35 Globulin 3.8 g/dL (1.3-4.6) 03/27/22 19:35 Lipase 37 U/L (13-60) 03/27/22 19:35 Salicylates 0.5 mg/dL (3-10) L 03/27/22 19:35 Acetaminophen < 5.0 ug/mL (10-30) L 03/27/22 19:35 Ethyl Alcohol < 10 mg/dL (0-10) 03/27/22 19:35 SARS-CoV-2 Ag (Rapid) Negative (Negative) 03/27/22 22:26 Discharge Plan Discharge Patient Disposition: Home Clinical Impression: Chronic schizophrenia Condition: Stable Prescriptions: No Action methocarbamol 750 mg tablet 750 mg PO BID Qty: 60 2RF naproxen 500 mg tablet 500 mg PO BID 30 Days Qty: 60 2RF Hold Instructions: Resume on 02/13/22. valsartan [Diovan] 80 mg tablet 80 mg PO DAILY Qty: 30 2RF Hold Instructions: Resume on 02/13/22. gabapentin 600 mg tablet 600 mg PO TID 30 Days Qty: 90 2RF trazodone 150 mg tablet 150 mg PO BEDTIME 30 Days Qty: 30 2RF Depakote ER 500 mg tablet extended release 24 hr 500 mg PO DAILY 30 Days Qty: 30 1RF Zyprexa 15 mg tablet 15 mg PO BID Qty: 60 1RF B-complex with vitamin C Tablet 1 tab PO DAILY Qty: 30 1RF Depakote ER 250 mg tablet extended release 24 hr 750 mg PO BEDTIME 30 Days Qty: 90 1RF Discharge Orders: Discharge ED (Routine); Ordered 03/28/22 Ordered By: Cayden Cotton Discharge Diet: Advance as tolerated Discharge Activity: Resume usual activity Patient Instructions: Chest Pain (ED) Coding Level of Care Code ED Operations Systems Specialist for Rosie Fwchelsey Exam Comprehensive
[2022-03-27 19:45] LABS: Basophils # 0.1 10^3/uL (0.0-0.1); Basophils % 0.5 %; Eosinophils # 0.5 10^3/uL (0.0-0.8); Eosinophils % 5.2 %; Hematocrit 35.3 % (42.0-52.0); Hemoglobin 11.5 g/dL (11.7-16.6); Lymphocytes # 1.6 10^3/uL (0.8-4.8); Lymphocytes % 15.3 %; Mean Corpuscular HGB Conc 32.6 g/dL (30.0-36.0); Mean Corpuscular Hemoglobin 28.3 pg (28.0-34.0); Mean Corpuscular Volume 86.9 fl (80-94); Mean Platelet Volume 10.1 fL (7.4-10.4); Monocytes # 0.7 10^3/uL (0.2-0.9); Monocytes % 7.2 %; Neutrophils # 7.35 10^3/uL (1.8-7.7); Neutrophils % 71.5 %; Nucleated Red Blood Cells % 0 %; Platelet Count 322 10^3/cmm (130-400); Red Blood Count 4.06 10^6/uL (4.1-5.3); White Blood Count 10.3 10^3/uL (4.0-10.0)
[2022-03-27 20:10] LABS: Acetaminophen < 5.0 ug/mL (10-30); Alanine Aminotransferase 9 U/L (0-41); Albumin Level 3.9 g/dL (3.5-5.2); Alkaline Phosphatase 77 IU/L (40-130); Anion Gap 16.4 (5-19); Aspartate Amino Transferase 18 U/L (0-40); Blood Urea Nitrogen 18 mg/dL (6-20); Calcium 9.6 mg/dL (8.5-10.5); Carbon Dioxide 24 mmol/L (22-29); Chloride 102 mmol/L (98-107); Globulin 3.8 g/dL (1.3-4.6); Glucose 116 mg/dL (65-115); Lipase 37 U/L (13-60); Osmolality Calculated 291 mOsm/kg (285-295); Potassium 3.4 mmol/L (3.5-5.1); Salicylate 0.5 mg/dL (3-10); Sodium 139 mmol/L (136-145); Total Bilirubin 0.3 mg/dL (0.15-1.2); Total Protein 7.7 g/dL (6.6-8.7)
--- NOTE | 2022-03-27 22:09 | ECG_ITS ---
[facility] Test Date: 2022-03-27 Pat Name: Hudson Vega Department: Room: Gender: Male Fiber Analyst: : 1970 Requested By: Alfredo Fernández Order Number: [id number] Anderson MD: Slime Mcdonald M.D. Measurements Intervals [place] Rate: 80 P: 68 HI: 154 QRS: 44 QRSD: 103 T: 57 QT: 387 QTc: 447 Interpretive Statements SINUS RHYTHM INTERPRETATION BASED ON A DEFAULT AGE OF 40 YEARS Compared to ECG 02/05/2022 17:19:08 No significant changes Electronically Signed On 03-29-2022 0:29:30 CDT by Slime Mcdonald M.D. [id number]
--- NOTE | 2022-03-27 22:09 | XRR_ITS ---
PROCEDURE INFORMATION: Exam: XR Chest Exam date and time: 03/27/2022 10:23 PM Age: 51 years old Clinical indication: Screening exam; Other screening; Additional info: Psych clearnce TECHNIQUE: Imaging protocol: Radiologic exam of the chest. Views: 1 view. COMPARISON: CR XR chest 1V portable [id number] 02/05/2022 7:45 PM FINDINGS: Lungs: Lungs are clear bilaterally. Pleural spaces: No pleural effusion. No pneumothorax. Heart/Mediastinum: Stable mild enlargement of the cardiac silhouette. Mediastinal contours are unremarkable. Bones/joints: Unremarkable for age. Soft tissues: Stable calcifications in the left chest wall. XR/XR chest 1V portable [id number] IMPRESSION: 1. No acute cardiopulmonary process. 2. Incidental/nonacute findings are listed in the report.
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
[2022-03-27 22:51] LABS: Alcohol Level < 10 mg/dL (0-10)
[2022-03-27 23:00] LABS: SARS Covid-2 Antigen Negative (Negative)
[2022-03-28 02:02] VITALS: BP 117/88; PULSE 74; RESP 16; O2SAT 98
--- NOTE | 2022-03-30 11:28 | DCPLANNER ---
communications program manager had message to refer patient to [facility] for services. communications program manager emailed patients information to Anamika Davis at [facility] for the referral process to be started. Patients information will be printed and reviewed. Clinic will call patient with appointment information.
== END 2022-03-28 02:03 | disposition home or self-care (01) ==
PROVIDERS: Emergency Medicine; Emergency Provider Emergency Medicine
DX: F20.9 Schizophrenia, unspecified (principal); F17.210 Nicotine dependence, cigarettes, uncomplicated; Z20.822 Contact with and (suspected) exposure to COVID-19
CPT/HCPCS: 71045; 80053; 80307; 83690; 85025; 87426; 93005; 99285

== ENCOUNTER 2022-03-28 21:56 | Inpatient (IN) | payer MEDICARE, MEDICAID, SELFPAY ==
[2022-03-28 22:08] VITALS: BP 154/106; PULSE 94; RESP 20; TEMP 37.1; O2SAT 94; BMI 34.2
--- NOTE | 2022-03-28 22:14 | W.ED.GENADLT ---
Documented by User: Alfredo Fernández MD 04/03/22 11:13 HPI - General Adult General: Chief complaint: Psychiatric Symptoms Stated complaint: HI Time Seen by Provider: 03/28/22 22:06 History of Present Illness: HPI: [51]yo patient w/ hx of depression presenting for upset ideation. Patient yesterday was seen for similar complaints. Patient tells me that his symptoms has not improved and wanted to speak with a psychiatrist. Patient denies any active plans. For On arrival, the patient is AAOx3 and cooperative with my evaluation. No focal complaints of chest pain, shortness of breath, palpitations, N/V, focal GI/ complaints. Currently denies SI. No complaints of hallucinations. Onset: acute on chronic Duration: ongoing Location: home Severity: severe Associated symptoms: Deny chest pain, dyspnea, nausea, rash, palpitations or vomiting Review of Systems Const: Denies: fever(s) or chills Eyes: Denies: change in vision ENMT: Denies: mouth pain Card: Denies: chest pain or palpitations Resp: Denies: dyspnea or non-productive cough GI: Denies: abdominal pain, nausea, vomiting or diarrhea : Denies: dysuria Musc: Denies: extremity pain Skin/Breast: Denies: rash or new lesions Neuro: Denies: weakness in extremities Psych: Reports: homicidal ideation and other (Normal mood) Eitan/Lymph: Denies: easy bruising PFS ED PFSH: Medical History Anxiety Bipolar depression Bipolar disorder Cervical plexus neuropathy Myofascial pain syndrome Schizoaffective disorder, unspecified Surgical History History of knee surgery left Family History Denies family history of CAD (coronary artery disease) Family history of premature coronary artery disease Social History Smoking and tobacco status: current every day smoker Second hand smoke exposure: Yes Smoking risk assessment/counseling performed?: Yes Alcohol intake: unknown Desire information about alcohol rehabilitation?: No Counseling given: No Desire information about substance/drug rehabilitation?: No Counseling given: No Caregiver/support person: Yes Lives independently: Yes Household members: none Housing: Other Marital status: Number of children: 4 service: No Current occupational status: other Pets and animals: No History of recent travel: No Current gender identity: Male Physical Exam Const: COMMON NORMALS: alert HENMT: COMMON NORMALS: atraumatic HEAD & SCALP: atraumatic MOUTH: moist mucous membranes not abnormal Eye: COMMON NORMALS: EOMs intact bilaterally and conjunctivae normal CONJUNCTIVA: Yes conjunctivae normal Neck/C-Spine: COMMON NORMALS: full ROM and supple Resp: COMMON NORMALS: normal respiratory effort and clear to auscultation bilaterally AUSCULTATION: clear to auscultation bilaterally Cardio: COMMON NORMALS: regular rate RATE: regular rate GI: COMMON NORMALS: Soft to palpation and non-tender PALPATION: Yes Soft to palpation Extremity: COMMON NORMALS: full ROM Neuro: SENSORIUM/ORIENTATION: Yes alert MOTOR EXAM: No Abnormal motor strength present and Other motor observations present (no focal motor deficits) Psych: COMMON NORMALS: speech normal SPEECH: Yes normal speech MOOD & AFFECT: Yes euthymic mood Course Vital Signs: Vital signs: Vital Signs Temperature 97.8 F 04/01/22 16:25 Pulse Rate 89 04/01/22 16:25 Respiratory Rate 18 04/01/22 16:25 Blood Pressure 156/84 04/01/22 16:25 Pulse Oximetry 98 04/01/22 16:25 Oxygen Delivery Me thod 04/01/22 06:00 MDM - General Adult Medical Decision Making [51]yo patient w/ hx of homocidal ideation presenting for HI. HDS, exam within normal limit Thoughts are linear and organized, and the patient has no AH/VH, or SI. Clinically the patient displays no overt toxidrome; they are well appearing, with low suspicion for toxic ingestion given history and exam. Symptoms unlikely 2/2 anemia, hypothyroidism, infection, or ICH. Patient care handed off from Dr. Fernández pending completion of ED evaluation including psychiatry service consult. Unfortunately the patient's psychiatric symptoms escalated including hallucinations and agitation. We attempted p.o. anxiolysis and previously prescribed medications with only modest improvement in symptoms. Overall the patient exhibits very poor insight, poor impulse control, poor judgment. He appears to be responding to internal stimuli. He has demonstrated recent inability to follow-up with discharge plan including taking his medication and therefore requires reassessment and additional inpatient management. Patient to be admitted to neuropsych unit. Discussed with psychiatry service. Laboratory studies reviewed. Based on ED evaluation at this point there is no obvious condition that would preclude the patient from inpatient management of psychiatric concerns. In total patient did receive 1 mg Ativan p.o., then 15 mg Zyprexa p.o., then 5 mg Versed IM. The ketamine and second dose (2 mg) Ativan was not administered. Patient crawled out of bed and did experience low impact fall. CT head and neck imaging negative for acute traumatic injury. Yoshi Pierre MD Emergency Medicine Lab Data : 03/29/22 00:30 03/29/22 00:30 Radiology Impressions Cervical Spine CT 03/29/22 03:00 IMPRESSION: No acute vertebral fracture/subluxation. Head CT 03/29/22 03:00 IMPRESSION: No acute intracranial abnormality. Laboratory Results WBC 10.0 10^3/uL (4.0-10.0) 03/29/22 00:30 RBC 4.19 10^6/uL (4.1-5.3) 03/29/22 00:30 Hgb 11.5 g/dL (11.7-16.6) L 03/29/22 00:30 Hct 36.0 % (42.0-52.0) L 03/29/22 00:30 MCV 85.9 fl (80-94) 03/29/22 00:30 MCH 27.4 pg (28.0-34.0) L 03/29/22 00:30 MCHC 31.9 g/dL (30.0-36.0) 03/29/22 00:30 RDW 14.6 % (12.1-15.1) 03/29/22 00:30 Plt Count 369 10^3/cmm (130-400) 03/29/22 00:30 MPV 9.5 fL (7.4-10.4) 03/29/22 00:30 Neut % (Auto) 57.7 % 03/29/22 00:30 Lymph % (Auto) 25.1 % 03/29/22 00:30 Hopkins % (Auto) 9.1 % 03/29/22 00:30 Eos % (Auto) 6.9 % 03/29/22 00:30 Baso % (Auto) 0.7 % 03/29/22 00:30 Neut # (Auto) 5.78 10^3/uL (1.8-7.7) 03/29/22 00:30 Lymph # (Auto) 2.5 10^3/uL (0.8-4.8) 03/29/22 00:30 Hopkins # (Auto) 0.9 10^3/uL (0.2-0.9) 03/29/22 00:30 Eos # (Auto) 0.7 10^3/uL (0.0-0.8) 03/29/22 00:30 Baso # (Auto) 0.1 10^3/uL (0.0-0.1) 03/29/22 00:30 Nucleated RBC % (auto) 0 % 03/29/22 00:30 Nucleated RBCs # 0.0 /100WBC 03/29/22 00:30 Sodium 139 mmol/L (136-145) 03/29/22 00:30 Potassium 3.6 mmol/L (3.5-5.1) 03/29/22 00:30 Chloride 100 mmol/L (98-107) 03/29/22 00:30 Carbon Dioxide 26 mmol/L (22-29) 03/29/22 00:30 Anion Gap 16.6 (5-19) 03/29/22 00:30 BUN 23 mg/dL (6-20) H 03/29/22 00:30 Creatinine 1.0 mg/dL (0.7-1.2) 03/29/22 00:30 GFR Calculation 78.8 mL/min (90-130) L 03/29/22 00:30 Glucose 97 mg/dL (65-115) 03/29/22 00:30 Calculated Osmolality 292 mOsm/kg (285-295) 03/29/22 00:30 Calcium 9.3 mg/dL (8.5-10.5) 03/29/22 00:30 Total Bilirubin 0.3 mg/dL (0.15-1.2) 03/29/22 00:30 AST 19 U/L (0-40) 03/29/22 00:30 ALT 11 U/L (0-41) 03/29/22 00:30 Alkaline Phosphatase 77 IU/L (40-130) 03/29/22 00:30 Total Protein 7.8 g/dL (6.6-8.7) 03/29/22 00:30 Albumin 4.2 g/dL (3.5-5.2) 03/29/22 00:30 Globulin 3.6 g/dL (1.3-4.6) 03/29/22 00:30 TSH 3.07 uIU/mL (0.27-4.20) 03/29/22 00:30 Salicylates < 0.3 mg/dL (3-10) L 03/29/22 00:30 Acetaminophen < 5.0 ug/mL (10-30) L 03/29/22 00:30 Ethyl Alcohol < 10 mg/dL (0-10) 03/29/22 00:30 Discharge Plan Discharge Patient Disposition: Admitted As Inpatient Admit Provider: Wale Hess Clinical Impression: Homicidal ideation, Acute psychosis, Hallucinations Condition: Stable Discharge Diet: Regular Discharge Activity: Resume usual activity Sign Out Sign Out Data: Patient Sign Out occurred on 03/28/22 at 22:48. Patient's care was discussed, and care was transferred from to Yoshi Pierre MD. Coding Level of Care Code ED Enrollment Representative for Chg Fwd Exam Comprehensive Documented by User: Yoshi Pierre MD 03/29/22 04:44 HPI - General Adult General: Chief complaint: Psychiatric Symptoms Stated complaint: HI Time Seen by Provider: 03/28/22 22:06 PFSH ED PFSH: Medical History Anxiety Bipolar depression Bipolar disorder Cervical plexus neuropathy Myofascial pain syndrome Schizoaffective disorder, unspecified Surgical History History of knee surgery left Family History Denies family history of CAD (coronary artery disease) Family history of premature coronary artery disease Social History Smoking and tobacco status: current every day smoker Second hand smoke exposure: Yes Smoking risk assessment/counseling performed?: Yes Alcohol intake: unknown Desire information about alcohol rehabilitation?: No Counseling given: No Desire information about substance/drug rehabilitation?: No Counseling given: No Caregiver/support person: Yes Lives independently: Yes Household members: none Housing: Other Marital status: Number of children: 4 service: No Current occupational status: other Pets and animals: No History of recent travel: No Current gender identity: Male Course Vital Signs: Vital signs: Vital Signs Temperature 97.8 F 04/01/22 16:25 Pulse Rate 89 04/01/22 16:25 Respiratory Rate 18 04/01/22 16:25 Blood Pressure 156/84 04/01/22 16:25 Pulse Oximetry 98 04/01/22 16:25 Oxygen Delivery Me thod 04/01/22 06:00 MDM - General Adult Medical Decision Making [51]yo patient w/ hx of homocidal ideation presenting for HI. HDS, exam within normal limit Thoughts are linear and organized, and the patient has no AH/VH, or SI. Clinically the patient displays no overt toxidrome; they are well appearing, with low suspicion for toxic ingestion given history and exam. Symptoms unlikely 2/2 anemia, hypothyroidism, infection, or ICH. [If admitting [11:30pm] On reassessment, patient is hemodynamically stable with no acute medical complaints. Case discussed with psychiatric provider Dr. Forrest at [facility] psych inpatient with recommendation for admission Disposition: Psych ] [If discharging [11:30pm] On reassessment, patient is hemodynamically stable with no acute medical complaints. Case discussed with psychiatric provider Dr. Forrest at [facility] psych inpatient who evaluated patient via telepsych and recommended discharge with close follow-up. Disposition: Discharge ] Patient care handed off from Dr. Fernández pending completion of ED evaluation including psychiatry service consult. Unfortunately the patient's psychiatric symptoms escalated including hallucinations and agitation. We attempted p.o. anxiolysis and previously prescribed medications with only modest improvement in symptoms. Overall the patient exhibits very poor insight, poor impulse control, poor judgment. He appears to be responding to internal stimuli. He has demonstrated recent inability to follow-up with discharge plan including taking his medication and therefore requires reassessment and additional inpatient management. Patient to be admitted to neuropsych unit. Discussed with psychiatry service. Laboratory studies reviewed. Based on ED evaluation at this point there is no obvious condition that would preclude the patient from inpatient management of psychiatric concerns. In total patient did receive 1 mg Ativan p.o., then 15 mg Zyprexa p.o., then 5 mg Versed IM. The ketamine and second dose (2 mg) Ativan was not administered. Patient crawled out of bed and did experience low impact fall. CT head and neck imaging negative for acute traumatic injury. Yoshi Pierre MD Emergency Medicine Lab Data : 03/29/22 00:30 03/29/22 00:30 Radiology Impressions Cervical Spine CT 03/29/22 03:00 IMPRESSION: No acute vertebral fracture/subluxation. Head CT 03/29/22 03:00
[2022-03-28] MEDS: LORazepam 1 mg Tablet PO (23:43)
[2022-03-28] MEDS: OLANZapine 10 mg TABLET 15 MG PO (23:52)
[2022-03-29] VITALS (7 sets, daily range): BP systolic 96–117; BP diastolic 63–81; PULSE 62–86; RESP 16–20; TEMP 36.4–36.7; O2SAT 93–97
[2022-03-29 00:36] LABS: Basophils # 0.1 10^3/uL (0.0-0.1); Basophils % 0.7 %; Eosinophils # 0.7 10^3/uL (0.0-0.8); Eosinophils % 6.9 %; Hemoglobin 11.5 g/dL (11.7-16.6); Lymphocytes # 2.5 10^3/uL (0.8-4.8); Lymphocytes % 25.1 %; Mean Corpuscular HGB Conc 31.9 g/dL (30.0-36.0); Mean Corpuscular Hemoglobin 27.4 pg (28.0-34.0); Mean Corpuscular Volume 85.9 fl (80-94); Mean Platelet Volume 9.5 fL (7.4-10.4); Monocytes # 0.9 10^3/uL (0.2-0.9); Monocytes % 9.1 %; Neutrophils # 5.78 10^3/uL (1.8-7.7); Neutrophils % 57.7 %; Nucleated Red Blood Cells % 0 %; Platelet Count 369 10^3/cmm (130-400); Red Blood Count 4.19 10^6/uL (4.1-5.3); Red Cell Distribution Width 14.6 % (12.1-15.1)
[2022-03-29] MEDS: midazolam 1 mg/mL INJ 2 mL 5 MG IM (01:10)
[2022-03-29 01:12] LABS: Alanine Aminotransferase 11 U/L (0-41); Albumin Level 4.2 g/dL (3.5-5.2); Alkaline Phosphatase 77 IU/L (40-130); Anion Gap 16.6 (5-19); Aspartate Amino Transferase 19 U/L (0-40); Blood Urea Nitrogen 23 mg/dL (6-20); Calcium 9.3 mg/dL (8.5-10.5); Carbon Dioxide 26 mmol/L (22-29); Chloride 100 mmol/L (98-107); Globulin 3.6 g/dL (1.3-4.6); Glomerular Filtration Rate 78.8 mL/min (90-130); Glucose 97 mg/dL (65-115); Osmolality Calculated 292 mOsm/kg (285-295); Potassium 3.6 mmol/L (3.5-5.1); Sodium 139 mmol/L (136-145); Thyroid Stimulating Hormone 3.07 uIU/mL (0.27-4.20); Total Bilirubin 0.3 mg/dL (0.15-1.2); Total Protein 7.8 g/dL (6.6-8.7)
[2022-03-29 01:13] LABS: Acetaminophen < 5.0 ug/mL (10-30); Alcohol Level < 10 mg/dL (0-10); Salicylate < 0.3 mg/dL (3-10)
--- NOTE | 2022-03-29 03:00 | CTR_ITS ---
PROCEDURE INFORMATION: Exam: CT Cervical Spine Without Contrast Exam date and time: 03/29/2022 3:20 AM Age: 51 years old Clinical indication: Injury or trauma; Fall; Blunt trauma; Patient HX: Patient tripped and hit back of head against sliding glass door. ; Additional info: Fall, headstrike TECHNIQUE: Imaging protocol: Computed tomography of the cervical spine without contrast. Radiation optimization: All CT scans at this facility use at least one of these dose optimization techniques: automated exposure control; mA and/or kV adjustment per patient size (includes targeted exams where dose is matched to clinical indication); or iterative reconstruction. COMPARISON: 1. CT cervical spin wo con* [id number] 2015-08-13 23:[address] head wo con* [id number] 2022-03-29 03:17 RADIATION DOSE METRICS: Total DLP (mGy-cm): 177.47 FINDINGS: Bones/joints: Normal spinal curvature, vertebral body heights, and alignment. No spinal fracture or acute subluxation. Discs/Spinal canal/Neural foramina: Diffuse degenerative disc space loss with degenerative disc osteophyte complexes causes up to mild spinal and foraminal stenosis greatest at C4-C6. Lungs: Lung apices are normal. Soft tissues: Unremarkable. CT/CT cervical spin wo con* [id number] IMPRESSION: No acute vertebral fracture/subluxation.
--- NOTE | 2022-03-29 03:00 | CTR_ITS ---
PROCEDURE INFORMATION: Exam: CT Head Without Contrast Exam date and time: 03/29/2022 3:17 AM Age: 51 years old Clinical indication: Injury or trauma; Fall; Blunt trauma (contusions or hematomas); Patient HX: Patient tripped and hit back of head against sliding glass door. ; Additional info: Fall, headstrike TECHNIQUE: Imaging protocol: Computed tomography of the head without contrast. Radiation optimization: All CT scans at this facility use at least one of these dose optimization techniques: automated exposure control; mA and/or kV adjustment per patient size (includes targeted exams where dose is matched to clinical indication); or iterative reconstruction. COMPARISON: 1. CT head wo con* [id number] 2015-08-13 23:[address] cervical spin wo con* [id number] 2015-08-13 23:05 RADIATION DOSE METRICS: Total DLP (mGy-cm): 1173.48 FINDINGS: Brain: Normal. No hemorrhage. Unremarkable white matter. No mass effect. Cerebral ventricles: No ventriculomegaly. Paranasal sinuses: Visualized sinuses are unremarkable. No fluid levels. Mastoid air cells: Visualized mastoid air cells are well aerated. Bones/joints: Unremarkable. No acute fracture. Soft tissues: Unremarkable. CT/CT head wo con* [id number] IMPRESSION: No acute intracranial abnormality.
[2022-03-29 05:22] LABS: Amphetamines Screen Urine Positive (Negative); Barbiturates Screen Urine Negative (Negative); Benzodiazepines Screen Urine Negative (Negative); Cocaine Screen Urine Negative (Negative); Opiate Screen Urine Negative (Negative); PCP Screen Urine Negative (Negative); THC Screen Urine Positive (Negative)
--- NOTE | 2022-03-29 05:50 | PC.NURSE ---
Late note, 303 sitter notified nursing staff thatv pt was attempting to get up, I went to pt room to assist pt, bed rails were up x 2 , pt slid off end of bed and proceeded to stand up falling forward and hitting his head on the glass door, no abrasion/lac noted, Dr Pierre immediately informed of pt fall.Vitals checked immediately following fall head and cervical CT ordered due to fall, both were unremarkable, incident report filed.
--- NOTE | 2022-03-29 08:35 | PC.OT ---
OT LAURA ATTEMPTED. PT SLEEPING FROM MEDICATION RECEIVED IN ED. WILL ATTEMPT AT A LATER DATE
[2022-03-29] MEDS: divalproex ER 500 mg Tablet (24H) PO (09:06)
[2022-03-29] MEDS: gabapentin 300 mg Capsule 600 MG PO ×3 (09:07→20:16)
[2022-03-29] MEDS: methocarbamol 750 mg Tablet PO ×2 (09:07→18:06)
[2022-03-29] MEDS: naproxen 500 mg Tablet PO ×2 (09:07→18:06)
[2022-03-29] MEDS: OLANZapine 10 mg TABLET 15 MG PO ×2 (09:08→18:06)
[2022-03-29] MEDS: losartan 50 mg Tablet 25 MG PO (09:08)
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
[2022-03-29] MEDS: b-complex-vitamin c Tablet 1 EACH PO (15:32)
[2022-03-29] MEDS: divalproex ER 250 mg Tablet (24H) 750 MG PO (20:17)
[2022-03-30 06:00] VITALS: BP 113/79; PULSE 85; RESP 16; TEMP 36.8; O2SAT 99
[2022-03-30] MEDS: nicotine 21 mg Patch 1 PATCH TRANSDERMA (09:23)
[2022-03-30 09:24] VITALS: BP 113/79
[2022-03-30] MEDS: methocarbamol 750 mg Tablet PO ×2 (09:24→18:46)
[2022-03-30] MEDS: naproxen 500 mg Tablet PO ×2 (09:24→18:45)
[2022-03-30] MEDS: divalproex ER 500 mg Tablet (24H) PO (09:24)
[2022-03-30] MEDS: gabapentin 300 mg Capsule 600 MG PO ×3 (09:24→20:40)
[2022-03-30] MEDS: losartan 50 mg Tablet 25 MG PO (09:24)
[2022-03-30] MEDS: b-complex-vitamin c Tablet 1 EACH PO (12:36)
[2022-03-30 14:00] VITALS: BP 119/83; PULSE 90; RESP 18; O2SAT 94
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
[2022-03-30] MEDS: fixodent 39 gm Tube 1 APPLIC DENTAL (15:29)
[2022-03-30] MEDS: divalproex ER 250 mg Tablet (24H) 750 MG PO (20:28)
[2022-03-30] MEDS: OLANZapine 10 mg TABLET 30 MG PO (20:36)
[2022-03-30 20:44] VITALS: BP 126/88; PULSE 92; RESP 17; TEMP 36.9; O2SAT 98
[2022-03-31 06:00] VITALS: BP 99/51; PULSE 84; RESP 16; TEMP 36.9; O2SAT 98
[2022-03-31 09:19] VITALS: BP 99/51
[2022-03-31] MEDS: methocarbamol 750 mg Tablet PO ×2 (09:19→17:55)
[2022-03-31] MEDS: losartan 50 mg Tablet 25 MG PO (09:19)
[2022-03-31] MEDS: b-complex-vitamin c Tablet 1 EACH PO (09:19)
[2022-03-31] MEDS: gabapentin 300 mg Capsule 600 MG PO ×3 (09:19→21:56)
[2022-03-31] MEDS: naproxen 500 mg Tablet PO ×2 (09:19→17:55)
[2022-03-31] MEDS: divalproex ER 500 mg Tablet (24H) PO (09:19)
[2022-03-31] MEDS: nicotine 21 mg Patch 1 PATCH TRANSDERMA (09:20)
[2022-03-31 14:00] VITALS: BP 137/79; PULSE 85; RESP 16; TEMP 37.1; O2SAT 94
[2022-03-31] MEDS: OLANZapine 5 mg ODT PO (16:29)
[2022-03-31] MEDS: hyDROXYzine 25 mg Capsule 50 MG PO (16:29)
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
[2022-03-31 20:42] VITALS: BP 101/67; PULSE 69; RESP 17; TEMP 36.9; O2SAT 98
[2022-03-31] MEDS: OLANZapine 10 mg TABLET 30 MG PO (21:57)
[2022-03-31] MEDS: divalproex ER 250 mg Tablet (24H) 750 MG PO (21:57)
[2022-04-01 06:00] VITALS: BP 144/93; PULSE 69; RESP 18; TEMP 36.8; O2SAT 96
[2022-04-01] MEDS: gabapentin 300 mg Capsule 600 MG PO (09:08)
[2022-04-01] MEDS: divalproex ER 500 mg Tablet (24H) PO (09:08)
[2022-04-01] MEDS: losartan 50 mg Tablet 25 MG PO (09:08)
[2022-04-01] MEDS: naproxen 500 mg Tablet PO (09:09)
[2022-04-01] MEDS: methocarbamol 750 mg Tablet PO (09:09)
--- NOTE | 2022-04-01 10:49 | DCPLANNER ---
IMMcompleted 04/01/22 @ 19:49am. Pt was given a copy of rights.
[2022-04-01] MEDS: nicotine 21 mg Patch 1 PATCH TRANSDERMA (11:07)
[2022-04-01] MEDS: b-complex-vitamin c Tablet 1 EACH PO (11:07)
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
[2022-04-01 14:00] VITALS: BP 156/84; PULSE 89; RESP 18; TEMP 36.6; O2SAT 98
[2022-04-01 16:25] VITALS: BP 156/84; PULSE 89; RESP 18; TEMP 36.6; O2SAT 98
== END 2022-04-01 12:55 | disposition home or self-care (01) | DRG 885 ==
LOC: ER 03-29 04:27 → NP 03-29 04:44
PROVIDERS: Admitting Provider Psychiatry & Neurology Psychiatry; Emergency Provider Emergency Medicine; Visit Provider Psychiatry & Neurology Psychiatry
DX: F25.1 Schizoaffective disorder, depressive type (principal); F15.20 Other stimulant dependence, uncomplicated; R45.851 Suicidal ideations; F12.20 Cannabis dependence, uncomplicated; F41.9 Anxiety disorder, unspecified; G54.2 Cervical root disorders, not elsewhere classified; F17.200 Nicotine dependence, unspecified, uncomplicated; Z79.891 Long term (current) use of opiate analgesic
CPT/HCPCS: 70450; 72125; 80053; 80306; 80307; 83690; 84443; 85025; 96372; 97150; 97165; 99285; J2250

== ENCOUNTER 2022-04-01 16:00 | Inpatient (IN) | payer MEDICARE, MEDICAID, SELFPAY ==
[2022-04-01 17:21] VITALS: BP 158/80; PULSE 86; RESP 20; TEMP 36.6; O2SAT 96
[2022-04-01] MEDS: naproxen 500 mg Tablet PO (18:12)
[2022-04-01] MEDS: methocarbamol 750 mg Tablet PO (18:12)
[2022-04-01] MEDS: nicotine 4 mg lozenge MUCOUS MEM (18:42)
[2022-04-01 20:02] VITALS: BP 133/78; PULSE 80; RESP 16; O2SAT 95
[2022-04-01] MEDS: OLANZapine 10 mg TABLET 30 MG PO (21:55)
[2022-04-01] MEDS: gabapentin 300 mg Capsule 600 MG PO (21:56)
[2022-04-01] MEDS: divalproex ER 250 mg Tablet (24H) 750 MG PO (21:56)
[2022-04-01] MEDS: trazodone 150 mg Tablet PO (21:56)
[2022-04-02 06:00] VITALS: BP 123/83; PULSE 72; RESP 16; O2SAT 93
[2022-04-02] MEDS: nicotine 4 mg lozenge MUCOUS MEM ×6 (07:07→17:41)
[2022-04-02] MEDS: b-complex-vitamin c Tablet 1 EACH PO (08:43)
[2022-04-02] MEDS: methocarbamol 750 mg Tablet PO ×2 (08:43→18:00)
[2022-04-02] MEDS: naproxen 500 mg Tablet PO ×2 (08:43→17:08)
[2022-04-02] MEDS: losartan 50 mg Tablet 25 MG PO (08:43)
[2022-04-02] MEDS: divalproex ER 500 mg Tablet (24H) PO (08:44)
[2022-04-02] MEDS: gabapentin 300 mg Capsule 600 MG PO ×3 (08:44→21:17)
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
[2022-04-02] MEDS: fixodent 39 gm Tube 1 APPLIC DENTAL (12:08)
[2022-04-02 13:47] VITALS: BP 134/89; PULSE 93; RESP 18; TEMP 36.6; O2SAT 100
[2022-04-02 19:38] VITALS: BP 108/74; PULSE 81; RESP 16; TEMP 36.8; O2SAT 98
[2022-04-02] MEDS: divalproex ER 250 mg Tablet (24H) 750 MG PO (21:15)
[2022-04-02] MEDS: trazodone 150 mg Tablet PO (21:16)
[2022-04-02] MEDS: OLANZapine 10 mg TABLET 30 MG PO (21:17)
[2022-04-03 05:55] VITALS: BP 138/91; PULSE 81; RESP 16; TEMP 36.9; O2SAT 97
[2022-04-03 06:00] VITALS: BMI 30.3
[2022-04-03] MEDS: nicotine 4 mg lozenge MUCOUS MEM ×4 (07:38→17:52)
[2022-04-03] MEDS: b-complex-vitamin c Tablet 1 EACH PO (08:15)
[2022-04-03] MEDS: methocarbamol 750 mg Tablet PO ×2 (08:15→17:52)
[2022-04-03] MEDS: gabapentin 300 mg Capsule 600 MG PO ×3 (08:16→20:02)
[2022-04-03] MEDS: losartan 50 mg Tablet 25 MG PO (08:16)
[2022-04-03] MEDS: divalproex ER 500 mg Tablet (24H) PO (08:16)
[2022-04-03] MEDS: naproxen 500 mg Tablet PO ×2 (08:16→17:52)
[2022-04-03] MEDS: acetaminophen 325 mg Tablet 650 MG PO (10:45)
--- NOTE | 2022-04-03 10:52 | PC.NURSE ---
Patient with c/o lower back pain rated 7 Tylenol 650 mg po given for this.
--- NOTE | 2022-04-03 11:21 | W.PM.NPUPNS ---
Subjective NPU Subjective: Patient presents today doing well on his medication and he reports that he is ready to go to [facility] if that is still the plan on Monday. We discussed that with the treatment team comes in Monday morning we will have a meeting and we will try to get him on his way soon as possible. He denies any symptoms or problems only reports that he has been a little tired. Mental Status Exam MSE Comments: This is an obese, tall white male? in hospital scrubs with adequate grooming and eye contact. No abnormal movements except for mild psychomotor retardation. Cooperative with exam in no acute distress. Speech was slightly decreased rate and volume. Mood described as all right, affect is calm. Thought process appeared organized. Thought content: patient denies suicidal or homicidal ideation, no delusions reported or noted, and denies any auditory or visual hallucinations.? Attention and concentration appeared intact and memory appeared reliable, but none were formally tested. He is alert and oriented three times. Insight and judgment are limited. Impulse control is limited. Vitals/I&O/Wt Last Vital Signs Temp 98.5 F 04/03/22 05:55 Pulse 81 04/03/22 05:55 Resp 16 04/03/22 05:55 BP 138/91 04/03/22 05:55 Pulse Ox 97 04/03/22 05:55 O2 Del Method 04/03/22 05:55 Weight last 48 hrs Weight 104.326 kg Weight 104.326 kg A&P Assessment and plan (1) Schizoaffective disorder, unspecified: Status: Chronic Qualifiers: Schizoaffective disorder type: unspecified Qualified Code(s): F25.9 - Schizoaffective disorder, unspecified (2) Acute psychosis: Status: Resolved (3) Hallucinations: Status: Resolved (4) Methamphetamine use disorder, severe: Status: Chronic (5) Cannabis use disorder, severe, dependence: Status: Acute (6) Depression with suicidal ideation: Status: Resolved (7) Anxiety: Status: Chronic Plan This is a 51 year old white male with a long history of trauma and addiction with genetic loading for mental health and addiction issues with continuing mental health challenges and methamphetamine abuse who presents after his attempt to present at the senior living failed secondary to senior living staff not being available for an intake Plan TO-15 minute med checks Continue medications per discharge medications Encourage individual, group and milieu therapies. Work with outpatient resources for safe discharge plan. Given his fragile reality readmission until Monday where he resources at the senior living are available is appropriate. Plan for discharge in the morning to [facility]. Involuntary Hold Information 96 Hour Hold: 96 Hour Involuntary Admission: No Attestations NPU Medical Necessity Statement*: Inpatient hospitalization is medically necessary and the clinically appropriate intervention at this time. We will monitor medications and make changes as indicated. Likely length of stay is 1-2 days. Coding Level of Care Code Acute Bulb Inspector for [facility] Fwd Diagnoses Schizoaffective disorder, unspecified F25.9 Schizoaffective disorder type: unspecified Acute psychosis F23 Hallucinations R44.3 Methamphetamine use disorder, severe F15.20 Cannabis use disorder, severe, dependence F12.20 Depression with suicidal ideation F32.A; R45.851 Anxiety F41.9
--- NOTE | 2022-04-03 13:50 | PC.NURSE ---
Patient at window requesting nicotine lozenge. RX number does not scan. Pharmacy notified.
[2022-04-03 14:00] VITALS: BP 120/75; PULSE 83; RESP 20; TEMP 36.9; O2SAT 98
[2022-04-03] MEDS: OLANZapine 10 mg TABLET 30 MG PO (20:01)
[2022-04-03] MEDS: divalproex ER 250 mg Tablet (24H) 750 MG PO (20:02)
[2022-04-03] MEDS: trazodone 150 mg Tablet PO (20:02)
[2022-04-03 20:25] VITALS: BP 121/82; PULSE 85; RESP 17; TEMP 37; O2SAT 94
[2022-04-03 21:00] VITALS: BP 121/82; PULSE 85; RESP 17; TEMP 37; O2SAT 94
[2022-04-04 06:00] VITALS: BP 132/64; PULSE 74; RESP 16; TEMP 36.6; O2SAT 97
[2022-04-04] MEDS: acetaminophen 325 mg Tablet 650 MG PO (07:33)
--- NOTE | 2022-04-04 07:36 | PC.NURSE ---
Patient c/o generalized pain with headache rated 7, Tylenol 650 mg po given for this.
[2022-04-04 08:18] VITALS: BP 132/64
[2022-04-04] MEDS: methocarbamol 750 mg Tablet PO (08:18)
[2022-04-04] MEDS: losartan 50 mg Tablet 25 MG PO (08:18)
[2022-04-04] MEDS: b-complex-vitamin c Tablet 1 EACH PO (08:18)
[2022-04-04] MEDS: divalproex ER 500 mg Tablet (24H) PO (08:18)
[2022-04-04] MEDS: naproxen 500 mg Tablet PO (08:19)
[2022-04-04] MEDS: gabapentin 300 mg Capsule 600 MG PO (08:19)
[2022-04-04] MEDS: nicotine 4 mg lozenge MUCOUS MEM ×2 (09:30→12:11)
--- NOTE | 2022-04-04 11:08 | DCPLANNER ---
IMM completed on 04/04/22 @ 1107am. Pt was given a copy of rights and he stated he understands his rights.
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
[2022-04-04 13:17] VITALS: BP 132/64
== END 2022-04-04 14:02 | disposition home or self-care (01) | DRG 885 ==
PROVIDERS: Admitting Provider Psychiatry & Neurology Psychiatry; Visit Provider Psychiatry & Neurology Psychiatry
DX: F20.9 Schizophrenia, unspecified (principal); F15.20 Other stimulant dependence, uncomplicated; R45.851 Suicidal ideations; F12.20 Cannabis dependence, uncomplicated; F17.200 Nicotine dependence, unspecified, uncomplicated
CPT/HCPCS: 97150; 97165

== ENCOUNTER 2022-04-04 17:55 | Inpatient (IN) | payer MEDICARE, MEDICAID, SELFPAY ==
[2022-04-04 17:58] VITALS: BP 139/85; PULSE 105; RESP 18; TEMP 36.6; O2SAT 95; BMI 27.3
--- NOTE | 2022-04-04 18:18 | W.ED.GENADLT ---
HPI - General Adult General: Chief complaint: Psychiatric Symptoms Stated complaint: SI Time Seen by Provider: 04/04/22 17:57 History of Present Illness: HPI: [51]yo patient w/ hx of depression and homicidal ideation presenting to the emergency room for worsening depression and suicidal ideation. Patient tells me that he is currently homeless. Patient tells me that he has nowhere to go. Patient tells me that he feels very depressed and would like to cut his arms he gets a knife from [employer]. For On arrival, the patient is AAOx3 and cooperative with my evaluation. No focal complaints of chest pain, shortness of breath, palpitations, N/V, focal GI/ complaints. Currently denies HI. No complaints of hallucinations. Onset: acute on chronic Duration: ongoing Location: home Severity: severe Review of Systems Const: Denies: fever(s) or chills Eyes: Denies: change in vision ENMT: Denies: mouth pain Resp: Denies: non-productive cough GI: Denies: abdominal pain or diarrhea : Denies: dysuria Musc: Denies: extremity pain Skin/Breast: Denies: new lesions Neuro: Denies: weakness in extremities Psych: Reports: depression and suicidal ideation Eitan/Lymph: Denies: easy bruising PFSH ED PFSH: Medical History Anxiety Bipolar depression Bipolar disorder Cervical plexus neuropathy Myofascial pain syndrome Schizoaffective disorder, unspecified Surgical History History of knee surgery left Family History Denies family history of CAD (coronary artery disease) Family history of premature coronary artery disease Social History Smoking and tobacco status: current every day smoker Second hand smoke exposure: Yes Smoking risk assessment/counseling performed?: Yes Alcohol intake: unknown Desire information about alcohol rehabilitation?: No Counseling given: No Desire information about substance/drug rehabilitation?: No Counseling given: No Caregiver/support person: Yes Lives independently: Yes Household members: none Housing: Other Marital status: Number of children: 4 service: No Current occupational status: other Pets and animals: No History of recent travel: No Current gender identity: Male Physical Exam Const: COMMON NORMALS: alert HENMT: COMMON NORMALS: atraumatic HEAD & SCALP: atraumatic MOUTH: moist mucous membranes not abnormal Eye: COMMON NORMALS: EOMs intact bilaterally and conjunctivae normal CONJUNCTIVA: Yes conjunctivae normal Neck/C-Spine: COMMON NORMALS: full ROM and supple Resp: COMMON NORMALS: normal respiratory effort and clear to auscultation bilaterally AUSCULTATION: clear to auscultation bilaterally Cardio: COMMON NORMALS: regular rate RATE: regular rate GI: COMMON NORMALS: Soft to palpation and non-tender PALPATION: Yes Soft to palpation Extremity: COMMON NORMALS: full ROM Neuro: SENSORIUM/ORIENTATION: Yes alert MOTOR EXAM: No Abnormal motor strength present and Other motor observations present (no focal motor deficits) Psych: COMMON NORMALS: speech normal SPEECH: Yes normal speech MOOD & AFFECT: Yes depressed mood Course Vital Signs: Vital signs: Vital Signs Temperature 98.2 F 04/06/22 12:37 Pulse Rate 86 04/06/22 12:37 Respiratory Rate 17 04/06/22 12:37 Blood Pressure 103/71 04/06/22 12:37 Pulse Oximetry 95 04/06/22 12:37 Oxygen Delivery Me thod 04/06/22 06:00 MDM - General Adult Medical Decision Making [51]yo patient w/ hx of depression and prior HI presenting for worsening depression. He tells me that he longer has homicidal ideation. Patient reports that he is currently homeless. HDS, exam within normal limit Thoughts are linear and organized, and the patient has no AH/VH, or HI. Clinically the patient displays no overt toxidrome; they are well appearing, with low suspicion for toxic ingestion given history and exam. Symptoms unlikely 2/2 anemia, hypothyroidism, infection, or ICH. [6:30pm] On reassessment, labs and workup wnl. Patient is hemodynamically stable with no acute medical complaints. Case discussed with psychiatric provider Dr. Forrest at [facility] psych inpatient who evaluated patient via telepsych and recommended admission Disposition: Admission Lab Data : 04/04/22 20:47 04/04/22 20:47 Laboratory Results WBC 13.8 10^3/uL (4.0-10.0) H 04/04/22 20:47 RBC 4.01 10^6/uL (4.1-5.3) L 04/04/22 20:47 Hgb 11.0 g/dL (11.7-16.6) L 04/04/22 20: Hct 34.9 % (42.0-52.0) L 04/04/22 20:47 MCV 87.0 fl (80-94) 04/04/22: MCH 27.4 pg (28.0-34.0) L 04/04/22: MCHC 31.5 g/dL (30.0-36.0) 04/04/22: RDW 15.2 % (12.1-15.1) H 04/04/22:47 Plt Count 361 10^3/cmm (130-400) 04/04/22: MPV 9.8 fL (7.4-10.4) 04/04/22 20:47 Neut % (Auto) 73.3 % 04/04/22: Lymph % (Auto) 19.5 % 04/04/22: Meeker % (Auto) 4.7 % 04/04/22:47 Eos % (Auto) 1.6 % 04/04/22:47 Baso % (Auto) 0.5 % 04/04/22: Neut # (Auto) 10.07 10^3/uL (1.8-7.7) H 04/04/22:47 Lymph # (Auto) 2.7 10^3/uL (0.8-4.8) 04/04/22: Meeker # (Auto) 0.7 10^3/uL (0.2-0.9) 04/04/22: Eos # (Auto) 0.2 10^3/uL (0.0-0.8) 04/04/22: Baso # (Auto) 0.1 10^3/uL (0.0-0.1) 04/04/22:47 Nucleated RBC % (auto) 0 % 04/04/22: Nucleated RBCs # 0.0 /100WBC 04/04/22: Sodium 141 mmol/L (136-145) 04/04/22: Potassium 4.2 mmol/L (3.5-5.1) 04/04/22 20:47 Chloride 101 mmol/L (98-107) 04/04/22 20:47 Carbon Dioxide 31 mmol/L (22-29) H 04/04/22 20:47 Anion Gap 13.2 (5-19) 04/04/22 20:47 BUN 10 mg/dL (6-20) 04/04/22 20:47 Creatinine 1.0 mg/dL (0.7-1.2) 04/04/22 20:47 GFR Calculation 78.8 mL/min (90-130) L 04/04/22 20:47 Glucose 125 mg/dL (65-115) H 04/04/22 20:47 Calculated Osmolality 293 mOsm/kg (285-295) 04/04/22 20:47 Calcium 9.9 mg/dL (8.5-10.5) 04/04/22 20:47 Total Bilirubin 0.2 mg/dL (0.15-1.2) 04/04/22 20:47 AST 11 U/L (0-40) 04/04/22 20:47 ALT 6 U/L (0-41) 04/04/22 20:47 Alkaline Phosphatase 65 U/L (40-130) 04/04/22 20:47 Total Protein 6.7 g/dL (6.6-8.7) 04/04/22 20:47 Albumin 4.1 g/dL (3.5-5.2) 04/04/22 20:47 Globulin 2.6 g/dL (1.3-4.6) 04/04/22 20:47 Lipase 66 U/L (13-60) H 04/04/22 20:47 Salicylates < 0.3 mg/dL (3-10) L 04/04/22 20:47 Urine Opiates Screen Negative ng/mL (Negative) 04/04/22 20:47 Acetaminophen < 5.0 ug/mL (10-30) L 04/04/22 20:47 Ur Barbiturates Screen Negative ng/mL (Negative) 04/04/22 20:47 Ur Phencyclidine Scrn Negative ng/mL (Negative) 04/04/22 20:47 Ur Amphetamines Screen Negative ng/mL (Negative) 04/04/22 20:47 U Benzodiazepines Scrn Negative ng/mL (Negative) 04/04/22 20:47 Urine Cocaine Screen Negative ng/mL (Negative) 04/04/22 20:47 U Marijuana (THC) Screen Negative ng/mL (Negative) 04/04/22 20:47 Discharge Plan Discharge Patient Disposition: Admitted As Inpatient Admit Provider: Chas Forrest Clinical Impression: Depression, Depression with suicidal ideation Condition: Stable Discharge Diet: Advance as tolerated Discharge Activity: Increase activity as tolerated Coding Level of Care Code 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
[2022-04-04 20:53] LABS: Basophils # 0.1 10^3/uL (0.0-0.1); Basophils % 0.5 %; Eosinophils # 0.2 10^3/uL (0.0-0.8); Eosinophils % 1.6 %; Hematocrit 34.9 % (42.0-52.0); Lymphocytes # 2.7 10^3/uL (0.8-4.8); Lymphocytes % 19.5 %; Mean Corpuscular HGB Conc 31.5 g/dL (30.0-36.0); Mean Corpuscular Hemoglobin 27.4 pg (28.0-34.0); Mean Platelet Volume 9.8 fL (7.4-10.4); Monocytes # 0.7 10^3/uL (0.2-0.9); Monocytes % 4.7 %; Neutrophils # 10.07 10^3/uL (1.8-7.7); Neutrophils % 73.3 %; Nucleated Red Blood Cells % 0 %; Platelet Count 361 10^3/cmm (130-400); Red Blood Count 4.01 10^6/uL (4.1-5.3); Red Cell Distribution Width 15.2 % (12.1-15.1); White Blood Count 13.8 10^3/uL (4.0-10.0)
[2022-04-04 21:05] LABS: Amphetamines Screen Urine Negative (Negative); Barbiturates Screen Urine Negative (Negative); Benzodiazepines Screen Urine Negative (Negative); Cocaine Screen Urine Negative (Negative); Opiate Screen Urine Negative (Negative); PCP Screen Urine Negative (Negative); THC Screen Urine Negative (Negative)
[2022-04-04 21:21] LABS: Acetaminophen < 5.0 ug/mL (10-30); Alanine Aminotransferase 6 U/L (0-41); Albumin Level 4.1 g/dL (3.5-5.2); Alkaline Phosphatase 65 U/L (40-130); Anion Gap 13.2 (5-19); Aspartate Amino Transferase 11 U/L (0-40); Blood Urea Nitrogen 10 mg/dL (6-20); Calcium 9.9 mg/dL (8.5-10.5); Carbon Dioxide 31 mmol/L (22-29); Chloride 101 mmol/L (98-107); Globulin 2.6 g/dL (1.3-4.6); Glomerular Filtration Rate 78.8 mL/min (90-130); Glucose 125 mg/dL (65-115); Lipase 66 U/L (13-60); Osmolality Calculated 293 mOsm/kg (285-295); Potassium 4.2 mmol/L (3.5-5.1); Salicylate < 0.3 mg/dL (3-10); Sodium 141 mmol/L (136-145); Total Bilirubin 0.2 mg/dL (0.15-1.2); Total Protein 6.7 g/dL (6.6-8.7)
--- NOTE | 2022-04-04 21:41 | PC.NURSE ---
Patient ready for transfer to NPU. Labs show elevated wbc 13.4. Dr Fernández is aware and states that the patient has elevated count and is fine to go ahead and transfer. Kirsty pagan in NPU is aware.
[2022-04-04 21:51] VITALS: BP 109/78; PULSE 83; RESP 17; TEMP 36.8; O2SAT 94
[2022-04-04] MEDS: ibuprofen 600 mg Tablet PO (22:21)
[2022-04-04 22:39] VITALS: BP 109/78; PULSE 83; RESP 17; TEMP 36.8; O2SAT 94
[2022-04-05 06:00] VITALS: BP 117/83; PULSE 71; RESP 116; TEMP 36.1; O2SAT 94
[2022-04-05 08:28] VITALS: BP 117/83
[2022-04-05] MEDS: divalproex ER 500 mg Tablet (24H) PO (08:28)
[2022-04-05] MEDS: methocarbamol 750 mg Tablet PO ×2 (08:28→18:30)
[2022-04-05] MEDS: b-complex-vitamin c Tablet 1 EACH PO (08:28)
[2022-04-05] MEDS: losartan 50 mg Tablet 25 MG PO (08:28)
[2022-04-05] MEDS: naproxen 500 mg Tablet PO ×2 (08:28→18:29)
[2022-04-05] MEDS: gabapentin 300 mg Capsule 600 MG PO ×3 (08:29→19:50)
[2022-04-05] MEDS: nicotine 2 mg Gum BUCCAL (08:29)
--- NOTE | 2022-04-05 10:30 | PC.NURSE ---
Pt has an appt at [facility] 11:45 on the .
[2022-04-05] MEDS: nicotine 4 mg lozenge MUCOUS MEM ×5 (10:44→19:26)
[2022-04-05] MEDS: fixodent 39 gm Tube 1 APPLIC DENTAL (13:17)
[2022-04-05 13:20] VITALS: BP 125/92; PULSE 103; RESP 16; TEMP 36.9; O2SAT 96
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
[2022-04-05] MEDS: divalproex ER 250 mg Tablet (24H) 750 MG PO (19:49)
[2022-04-05] MEDS: trazodone 50 mg Tablet PO (19:50)
[2022-04-05] MEDS: OLANZapine 10 mg TABLET 30 MG PO (19:50)
[2022-04-05 20:12] VITALS: BP 140/96; PULSE 94; RESP 18; TEMP 36.9; O2SAT 100
[2022-04-06 06:00] VITALS: BP 103/71; PULSE 106; RESP 17; TEMP 36.8; O2SAT 95
[2022-04-06] MEDS: divalproex ER 500 mg Tablet (24H) PO (07:54)
[2022-04-06] MEDS: b-complex-vitamin c Tablet 1 EACH PO (07:54)
[2022-04-06] MEDS: methocarbamol 750 mg Tablet PO (07:54)
[2022-04-06] MEDS: naproxen 500 mg Tablet PO (07:54)
[2022-04-06] MEDS: losartan 50 mg Tablet 25 MG PO (07:55)
[2022-04-06] MEDS: gabapentin 300 mg Capsule 600 MG PO (07:55)
[2022-04-06] MEDS: nicotine 4 mg lozenge MUCOUS MEM ×2 (08:24→10:27)
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
--- NOTE | 2022-04-06 12:25 | DCPLANNER ---
IMM completed on 04/06/22 @ 9905. Pt was given a copy of rights and he stated he understood his rights.
[2022-04-06 12:37] VITALS: BP 103/71; PULSE 86; RESP 17; TEMP 36.8; O2SAT 95
== END 2022-04-06 12:44 | disposition home or self-care (01) | DRG 881 ==
LOC: ER 21:06 → NP 21:15
PROVIDERS: Admitting Provider Psychiatry & Neurology Psychiatry; Emergency Provider Emergency Medicine; Visit Provider Psychiatry & Neurology Psychiatry
DX: F32.A Depression, unspecified (principal); F15.20 Other stimulant dependence, uncomplicated; R45.851 Suicidal ideations; F23 Brief psychotic disorder; F25.9 Schizoaffective disorder, unspecified; F12.20 Cannabis dependence, uncomplicated; F41.9 Anxiety disorder, unspecified; I10 Essential (primary) hypertension; G54.2 Cervical root disorders, not elsewhere classified; M79.18 Myalgia, other site; F17.200 Nicotine dependence, unspecified, uncomplicated; Z62.810 Personal history of physical and sexual abuse in childhood; Z81.8 Family history of other mental and behavioral disorders; Z81.4 Family history of other substance abuse and dependence; Z65.3 Problems related to other legal circumstances
CPT/HCPCS: 80053; 80306; 80307; 83690; 85025; 97150; 97165; 99285

== ENCOUNTER → 2022-05-20 12:53 | Outpatient (BNVA) | payer MEDICAID, SELFPAY | PROVIDERS: PCP Nurse Practitioner; Referring Provider Nurse Practitioner; Visit Provider Podiatrist Foot & Ankle Surgery | DX: I73.9 Peripheral vascular disease, unspecified (principal); B35.1 Tinea unguium | CPT/HCPCS: 11721; 99203 ==

== ENCOUNTER 2022-05-29 12:21 | Inpatient (IN) | payer MEDICARE, MEDICAID, SELFPAY ==
--- NOTE | 2022-05-29 12:25 | XRR_ITS ---
PROCEDURE INFORMATION: Exam: XR Chest Exam date and time: 05/29/2022 1:38 PM Age: 52 years old Clinical indication: Condition or disease; Other: Pysch; Additional info: Psych clearance TECHNIQUE: Imaging protocol: Radiologic exam of the chest. Views: 1 view. COMPARISON: CR (CHEST, ) 03/27/2022 10:23 PM FINDINGS: Lungs: Unremarkable. No consolidation. Pleural spaces: Unremarkable. No pleural effusion. No pneumothorax. Heart/Mediastinum: Unremarkable. No cardiomegaly. Bones/joints: Unremarkable. XR/XR chest 1V portable [id number] IMPRESSION: No acute findings.
--- NOTE | 2022-05-29 12:29 | W.ED.GENADLT ---
HPI - General Adult General: Chief complaint: Psychiatric Symptoms Stated complaint: 96 Time Seen by Provider: 05/29/22 12:25 History of Present Illness: HPI: [52]yo patient w/ hx of bipolar disorder and homicidal ideation BIBP for aggresive behaviors under involuntary commitment. On arrival, the patient is AAOx3 and cooperative with my evaluation. No focal complaints of chest pain, shortness of breath, palpitations, N/V, focal GI/ complaints. Currently denies SI/HI. No complaints of hallucinations. Onset: acute on chronic Duration: ongoing Location: home Severity: severe Associated symptoms: Deny chest pain, dyspnea, nausea, rash, palpitations or vomiting Review of Systems Const: Denies: fever(s) or chills Eyes: Denies: change in vision ENMT: Denies: mouth pain Card: Denies: chest pain or palpitations Resp: Denies: dyspnea or non-productive cough GI: Denies: abdominal pain, nausea, vomiting or diarrhea : Denies: dysuria Musc: Denies: extremity pain Skin/Breast: Denies: rash or new lesions Neuro: Denies: weakness in extremities Psych: Reports: other (+aggressive behavior) Eitan/Lymph: Denies: easy bruising PFSH ED PFSH: Medical History Anxiety Bipolar depression Bipolar disorder Cervical plexus neuropathy Myofascial pain syndrome Schizoaffective disorder, unspecified Surgical History History of knee surgery left Family History Denies family history of CAD (coronary artery disease) Family history of premature coronary artery disease Social History Smoking and tobacco status: current every day smoker Second hand smoke exposure: Yes Smoking risk assessment/counseling performed?: Yes Alcohol intake: unknown Desire information about alcohol rehabilitation?: No Counseling given: No Desire information about substance/drug rehabilitation?: No Counseling given: No Adopted: No Caregiver/support person: No Lives independently: Yes Household members: friend(s) Marital status: Number of children: 4 service: No Current occupational status: unemployed Pets and animals: No History of recent travel: No Current gender identity: Male Physical Exam Const: COMMON NORMALS: alert HENMT: COMMON NORMALS: atraumatic HEAD & SCALP: atraumatic MOUTH: moist mucous membranes not abnormal Eye: COMMON NORMALS: EOMs intact bilaterally and conjunctivae normal CONJUNCTIVA: Yes conjunctivae normal Neck/C-Spine: COMMON NORMALS: full ROM and supple Resp: COMMON NORMALS: normal respiratory effort and clear to auscultation bilaterally AUSCULTATION: clear to auscultation bilaterally Cardio: RATE: tachycardic GI: COMMON NORMALS: Soft to palpation and non-tender PALPATION: Yes Soft to palpation Extremity: COMMON NORMALS: full ROM Neuro: SENSORIUM/ORIENTATION: Yes alert MOTOR EXAM: No Abnormal motor strength present and Other motor observations present (no focal motor deficits) Psych: COMMON NORMALS: speech normal SPEECH: Yes normal speech MOOD & AFFECT: Yes euthymic mood Course Vital Signs: Vital signs: Vital Signs Temperature 98.3 F 05/29/22 12:47 Pulse Rate 121 H 05/29/22 12:47 Respiratory Rate 22 H 05/29/22 12:47 Blood Pressure 138/117 05/29/22 12:47 Pulse Oximetry 94 05/29/22 12:47 Oxygen Delivery Me thod 05/29/22 12:47 MDM - General Adult Medical Decision Making [52]yo patient w/ hx of prior HI presenting for aggressive behavior. HDS, exam within normal limit Thoughts are linear and organized, and the patient has no AH/VH, or HI. Patient is placed under involuntary commitment for aggressive behavior. Clinically the patient displays no overt toxidrome; they are well appearing, with low suspicion for toxic ingestion given history and exam. Symptoms unlikely 2/2 anemia, hypothyroidism, infection, or ICH. Workup: CBC, CMP, Lipase, salicylate/tylenol, TSH/free T4, EKG, serum ethanol, UDS Lab findings: wnl [1:30pm] On reassessment, labs and workup wnl. Patient is hemodynamically stable with no acute medical complaints. Case discussed with psychiatric provider Dr. Forrest at [facility] psych inpatient with recommendation for admission Disposition: Psych Lab Data : 05/29/22 12:45 05/29/22 12:45 Laboratory Results WBC 6.9 10^3/uL (4.0-10.0) 05/29/22 12:45 RBC 4.43 10^6/uL (4.1-5.3) 05/29/22 12:45 Hgb 12.1 g/dL (11.7-16.6) 05/29/22 12:45 Hct 37.8 % (42.0-52.0) L 05/29/22 12:45 MCV 85.3 fl (80-94) 05/29/22 12:45 MCH 27.3 pg (28.0-34.0) L 05/29/22 12:45 MCHC 32.0 g/dL (30.0-36.0) 05/29/22 12:45 RDW 13.9 % (12.1-15.1) 05/29/22 12:45 Plt Count 249 10^3/cmm (130-400) 05/29/22 12:45 MPV 9.5 fL (7.4-10.4) 05/29/22 12:45 Neut % (Auto) 63.3 % 05/29/22 12:45 Lymph % (Auto) 21.4 % 05/29/22 12:45 [place] % (Auto) 10.4 % 05/29/22 12:45 Eos % (Auto) 3.6 % 05/29/22 12:45 Baso % (Auto) 0.9 % 05/29/22 12:45 Neut # (Auto) 4.38 10^3/uL (1.8-7.7) 05/29/22 12:45 Lymph # (Auto) 1.5 10^3/uL (0.8-4.8) 05/29/22 12:45 [place] # (Auto) 0.7 10^3/uL (0.2-0.9) 05/29/22 12:45 Eos # (Auto) 0.3 10^3/uL (0.0-0.8) 05/29/22 12:45 Baso # (Auto) 0.1 10^3/uL (0.0-0.1) 05/29/22 12:45 Nucleated RBC % (auto) 0 % 05/29/22 12:45 Nucleated RBCs # 0.0 /100WBC 05/29/22 12:45 Sodium 138 mmol/L (136-145) 05/29/22 12:45 Potassium 4.3 mmol/L (3.5-5.1) 05/29/22 12:45 Chloride 101 mmol/L (98-107) 05/29/22 12:45 Carbon Dioxide 24 mmol/L (22-29) 05/29/22 12:45 Anion Gap 17.3 (5-19) 05/29/22 12:45 BUN 16 mg/dL (6-20) 05/29/22 12:45 Creatinine 1.1 mg/dL (0.7-1.2) 05/29/22 12:45 GFR Calculation 70.3 mL/min (90-130) L 05/29/22 12:45 Glucose 94 mg/dL (65-115) 05/29/22 12:45 Calculated Osmolality 287 mOsm/kg (285-295) 05/29/22 12:45 Calcium 9.8 mg/dL (8.5-10.5) 05/29/22 12:45 Total Bilirubin 0.2 mg/dL (0.15-1.2) 05/29/22 12:45 AST 30 U/L (0-40) 05/29/22 12:45 ALT 13 U/L (0-41) 05/29/22 12:45 Alkaline Phosphatase 84 U/L (40-130) 05/29/22 12:45 Total Protein 8.3 g/dL (6.6-8.7) 05/29/22 12:45 Albumin 4.3 g/dL (3.5-5.2) 05/29/22 12:45 Globulin 4.0 g/dL (1.3-4.6) 05/29/22 12:45 Lipase 13 U/L (13-60) 05/29/22 12:45 TSH 1.58 uIU/mL (0.27-4.20) 05/29/22 12:45 Free T4 1.10 ng/dL (0.82-1.77) 05/29/22 12:45 Salicylates < 0.3 mg/dL (3-10) L 05/29/22 12:45 Acetaminophen < 5.0 ug/mL (10-30) L 05/29/22 12:45 Ethyl Alcohol < 10 mg/dL (0-10) 05/29/22 12:45 Discharge Plan Discharge Patient Disposition: Admitted As Inpatient Clinical Impression: Aggressive behavior, Psychosis Condition: Stable Coding Level of Care Code ED Principal Systems Architect for Chg Fwd Exam Comprehensive
[2022-05-29 12:47] VITALS: BP 138/117; PULSE 121; RESP 22; TEMP 36.8; O2SAT 94
--- NOTE | 2022-05-29 12:56 | ECG_ITS ---
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 Measurements Intervals [place] Rate: 100 P: 78 VA: 162 QRS: 48 QRSD: 87 T: 70 QT: 365 QTc: 472 Interpretive Statements SINUS TACHYCARDIA POSSIBLE LEFT ATRIAL ENLARGEMENT [-0.1mV P-WAVE IN V1/V2] ABNORMAL RHYTHM ECG Compared to ECG 03/27/2022 22:22:23 Sinus rhythm no longer present Electronically Signed On 05-29-2022 18:23:32 CDT by Slime Mcdonald M.D. [id number]
[2022-05-29 12:58] LABS: Basophils # 0.1 10^3/uL (0.0-0.1); Basophils % 0.9 %; Eosinophils # 0.3 10^3/uL (0.0-0.8); Eosinophils % 3.6 %; Hematocrit 37.8 % (42.0-52.0); Hemoglobin 12.1 g/dL (11.7-16.6); Lymphocytes # 1.5 10^3/uL (0.8-4.8); Lymphocytes % 21.4 %; Mean Corpuscular Hemoglobin 27.3 pg (28.0-34.0); Mean Corpuscular Volume 85.3 fl (80-94); Mean Platelet Volume 9.5 fL (7.4-10.4); Monocytes # 0.7 10^3/uL (0.2-0.9); Monocytes % 10.4 %; Neutrophils # 4.38 10^3/uL (1.8-7.7); Neutrophils % 63.3 %; Nucleated Red Blood Cells % 0 %; Platelet Count 249 10^3/cmm (130-400); Red Blood Count 4.43 10^6/uL (4.1-5.3); Red Cell Distribution Width 13.9 % (12.1-15.1); White Blood Count 6.9 10^3/uL (4.0-10.0)
[2022-05-29] MEDS: haloperidol inj 5 mg/mL INJ 1 mL IM (12:58)
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
--- NOTE | 2022-05-29 13:21 | PC.PHAR ---
pt unable to verify due to sedation. Meds verified by external history.
[2022-05-29 13:33] LABS: Alanine Aminotransferase 13 U/L (0-41); Albumin Level 4.3 g/dL (3.5-5.2); Alkaline Phosphatase 84 U/L (40-130); Anion Gap 17.3 (5-19); Aspartate Amino Transferase 30 U/L (0-40); Blood Urea Nitrogen 16 mg/dL (6-20); Calcium 9.8 mg/dL (8.5-10.5); Carbon Dioxide 24 mmol/L (22-29); Chloride 101 mmol/L (98-107); Glomerular Filtration Rate 70.3 mL/min (90-130); Glucose 94 mg/dL (65-115); Lipase 13 U/L (13-60); Osmolality Calculated 287 mOsm/kg (285-295); Potassium 4.3 mmol/L (3.5-5.1); Sodium 138 mmol/L (136-145); Thyroid Stimulating Hormone 1.58 uIU/mL (0.27-4.20); Total Bilirubin 0.2 mg/dL (0.15-1.2); Total Protein 8.3 g/dL (6.6-8.7)
[2022-05-29 13:34] LABS: Acetaminophen < 5.0 ug/mL (10-30); Alcohol Level < 10 mg/dL (0-10); Salicylate < 0.3 mg/dL (3-10)
[2022-05-29 14:20] VITALS: BP 146/100; PULSE 98; RESP 16; O2SAT 96
[2022-05-29 14:53] LABS: SARS Covid-2 Antigen negative (Negative)
[2022-05-29 16:35] VITALS: BP 138/92; PULSE 95; RESP 20; TEMP 36.7; O2SAT 95
[2022-05-29 18:37] LABS: Amphetamines Screen Urine Positive (Negative); Barbiturates Screen Urine Negative (Negative); Benzodiazepines Screen Urine Negative (Negative); Cocaine Screen Urine Negative (Negative); Opiate Screen Urine Negative (Negative); PCP Screen Urine Negative (Negative); THC Screen Urine Positive (Negative)
[2022-05-29 20:24] VITALS: BP 109/72; PULSE 91; RESP 20; TEMP 36.7; O2SAT 97
[2022-05-30 06:00] VITALS: BP 123/71; PULSE 61; RESP 18; TEMP 37; O2SAT 98
[2022-05-30] MEDS: nicotine 4 mg lozenge MUCOUS MEM ×5 (07:54→20:23)
[2022-05-30] MEDS: methocarbamol 750 mg Tablet PO ×2 (08:40→20:13)
[2022-05-30] MEDS: naproxen 500 mg Tablet PO ×2 (08:40→20:13)
[2022-05-30] MEDS: divalproex ER 500 mg Tablet (24H) PO (08:41)
[2022-05-30] MEDS: b-complex-vitamin c Tablet 1 EACH PO (08:41)
[2022-05-30] MEDS: losartan 50 mg Tablet 25 MG PO (08:41)
[2022-05-30] MEDS: gabapentin 300 mg Capsule 600 MG PO ×3 (08:41→20:15)
--- NOTE | 2022-05-30 09:35 | PC.OT ---
OT EVALUATION ORDERS RECEIVED. PATIENT IS SLEEPING SOUNDLY AND UNABLE TO PARTICIPATE IN EVALUATION AT THIS TIME. WILL ATTEMPT AGAIN AT ANOTHER TIME.
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
[2022-05-30 14:00] VITALS: BP 118/89; PULSE 68; RESP 18; TEMP 36.9; O2SAT 98
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
[2022-05-30] MEDS: divalproex ER 250 mg Tablet (24H) 750 MG PO (20:14)
[2022-05-30] MEDS: OLANZapine 10 mg TABLET 30 MG PO (20:15)
[2022-05-30] MEDS: trazodone 150 mg Tablet PO (20:16)
[2022-05-30 21:20] VITALS: BP 116/77; PULSE 65; RESP 18; TEMP 36.9; O2SAT 96
[2022-05-31 06:00] VITALS: BP 118/76; PULSE 79; RESP 18; TEMP 36.6; O2SAT 94
[2022-05-31] MEDS: gabapentin 300 mg Capsule 600 MG PO ×3 (08:40→20:07)
[2022-05-31] MEDS: losartan 50 mg Tablet 25 MG PO (08:41)
[2022-05-31] MEDS: b-complex-vitamin c Tablet 1 EACH PO (08:41)
[2022-05-31] MEDS: methocarbamol 750 mg Tablet PO ×2 (08:41→18:24)
[2022-05-31] MEDS: divalproex ER 500 mg Tablet (24H) PO (08:41)
[2022-05-31] MEDS: naproxen 500 mg Tablet PO ×2 (08:42→18:24)
[2022-05-31] MEDS: nicotine 4 mg lozenge MUCOUS MEM ×6 (09:09→20:23)
[2022-05-31] MEDS: fixodent 39 gm Tube 1 APPLIC DENTAL (13:24)
[2022-05-31 14:00] VITALS: BP 149/84; PULSE 115; RESP 16; TEMP 36.5; O2SAT 95
--- NOTE | 2022-05-31 18:05 | P.NPUPN_ITS ---
Subjective NPU Subjective: Patient presents today reporting that he is interested in discharge. We discussed trying to explore what [facility] has to offer he agreed we could do that and we discussed him being on a 96-hour hold. He was very reticent to acknowledge his current drug use. We discussed the limited chance of change occurring if he is not willing to face the truth of his use. Mental Status Exam MSE Comments: This is an obese, tall white male? in hospital scrubs with adequate grooming and eye contact. No abnormal movements except for mild psychomotor retardation. Cooperative with exam in no acute distress. Speech was slightly decreased rate and volume. Mood described as I am pretty good, affect is calm. Thought process appeared organized. Thought content: patient denies suicidal or homicidal ideation, no delusions reported or noted, and denies any auditory or visual hallucinations.? Attention and concentration appeared intact and memory appeared reliable, but none were formally tested. He is alert and oriented three times. Insight and judgment are limited. Impulse control is limited. Vitals/I&O/Wt Last Vital Signs Temp 97.3 F L 05/31/22 20:41 Pulse 76 05/31/22 20:41 Resp 16 05/31/22 20:41 BP 146/75 05/31/22 20:41 Pulse Ox 97 05/31/22 20:41 O2 Del Method 05/30/22 14:00 Weight last 48 hrs Weight 86.545 kg Data NPU : 05/29/22 12:45 05/29/22 12:45 A&P Assessment and plan (1) Schizoaffective disorder, unspecified: Qualifiers: Schizoaffective disorder type: unspecified Qualified Code(s): F25.9 - Schizoaffective disorder, unspecified (2) Acute psychosis: (3) Hallucinations: (4) Methamphetamine use disorder, severe: (5) Cannabis use disorder, severe, dependence: (6) Depression with suicidal ideation: (7) Anxiety: Plan This is a 52 year old white male with a long history of trauma and addiction with genetic loading for mental health and addiction issues with continuing mental health challenges and methamphetamine abuse who presents after getting in trouble for trespassing leading to his admission which he reports is unnecessary. Plan TO-15 minute med checks Continue medications per last discharge medications Encourage individual, group and milieu therapies. Encouraged him to explore sober living treatment after discharge at [facility]. Involuntary Hold Information 96 Hour Hold: 96 Hour Involuntary Admission: Yes 96 Hour Hold Ending Date: 06/06/22 96 Hour Hold Ending Time: 00:01 Attestations NPU Medical Necessity Statement*: Inpatient hospitalization is medically necessary and the clinically appropriate intervention at this time. We will monitor medications and make changes as indicated. Likely to stay 2-3 days Coding Level of Care Code Acute Ship Worker for [facility] Fwd Diagnoses Schizoaffective disorder, unspecified F25.9 Schizoaffective disorder type: unspecified Acute psychosis F23 Hallucinations R44.3 Methamphetamine use disorder, severe F15.20 Cannabis use disorder, severe, dependence F12.20 Depression with suicidal ideation F32.A; R45.851 Anxiety F41.9
[2022-05-31] MEDS: divalproex ER 250 mg Tablet (24H) 750 MG PO (20:06)
[2022-05-31] MEDS: OLANZapine 10 mg TABLET 30 MG PO (20:07)
[2022-05-31] MEDS: trazodone 150 mg Tablet PO (20:08)
[2022-05-31] MEDS: neomycin-poly-bacitracin oint 28 gm 1 APPLIC TOPICAL (20:14)
[2022-05-31 20:41] VITALS: BP 146/75; PULSE 76; RESP 16; TEMP 36.3; O2SAT 97
[2022-06-01 06:00] VITALS: BP 123/79; PULSE 76; RESP 18; O2SAT 95
[2022-06-01] MEDS: gabapentin 300 mg Capsule 600 MG PO ×3 (08:08→20:43)
[2022-06-01] MEDS: b-complex-vitamin c Tablet 1 EACH PO (08:08)
[2022-06-01] MEDS: methocarbamol 750 mg Tablet PO ×2 (08:08→17:22)
[2022-06-01] MEDS: divalproex ER 500 mg Tablet (24H) PO (08:08)
[2022-06-01] MEDS: naproxen 500 mg Tablet PO ×2 (08:09→17:20)
[2022-06-01 08:10] VITALS: BP 123/79
[2022-06-01] MEDS: losartan 50 mg Tablet 25 MG PO (08:10)
[2022-06-01] MEDS: nicotine 4 mg lozenge MUCOUS MEM ×6 (09:00→22:31)
[2022-06-01] MEDS: haloperidol 5 mg Tablet PO ×3 (09:16→22:31)
--- NOTE | 2022-06-01 10:50 | PC.NURSE ---
0916 Administered 5mg Haldol PO to the pt experiencing Auditory Hallucinations.
--- NOTE | 2022-06-01 12:22 | W.PM.NPUPNS ---
Subjective NPU Subjective: Patient presents today reporting that he is feeling okay. He continues to request for discharge and denying need for long-term care. He continues to have limited insight into his recurrent addiction and the impact it has on his mental health. He is not on the [facility] waiting list. We discussed considering discharge versus an extended stay. Mental Status Exam MSE Comments: This is an obese, tall white male? in hospital scrubs with adequate grooming and eye contact. No abnormal movements except for mild psychomotor retardation. Cooperative with exam in no acute distress. Speech was slightly decreased rate and volume. Mood described as good, affect is calm. Thought process appeared organized. Thought content: patient denies suicidal or homicidal ideation, no delusions reported or noted, and denies any auditory or visual hallucinations.? Attention and concentration appeared intact and memory appeared reliable, but none were formally tested. He is alert and oriented three times. Insight and judgment are limited. Impulse control is limited. Vitals/I&O/Wt Last Vital Signs Temp 97.3 F L 05/31/22 20:41 Pulse 76 06/01/22 06:00 Resp 18 06/01/22 06:00 BP 123/79 06/01/22 06:00 Pulse Ox 95 06/01/22 06:00 O2 Del Method 06/01/22 06:00 Data NPU : 05/29/22 12:45 05/29/22 12:45 A&P Assessment and plan (1) Schizoaffective disorder, unspecified: Qualifiers: Schizoaffective disorder type: unspecified Qualified Code(s): F25.9 - Schizoaffective disorder, unspecified (2) Acute psychosis: (3) Hallucinations: (4) Methamphetamine use disorder, severe: (5) Cannabis use disorder, severe, dependence: (6) Depression with suicidal ideation: (7) Anxiety: Plan This is a 52 year old white male with a long history of trauma and addiction with genetic loading for mental health and addiction issues with continuing mental health challenges and methamphetamine abuse who presents after getting in trouble for trespassing leading to his admission which he reports is unnecessary. Plan TO-15 minute med checks Continue medications per last discharge medications Encourage individual, group and milieu therapies. Encouraged him to explore sober living treatment after discharge at the high level of care to which he is willing to commit. Determine whether we are prepared to go extensively into care with 21-day hold and possible guardianship or discharge with that as a plan if and when he returns. Involuntary Hold Information 96 Hour Hold: 96 Hour Involuntary Admission: Yes 96 Hour Hold Ending Date: 06/06/22 96 Hour Hold Ending Time: 00:01 Attestations NPU Medical Necessity Statement*: Inpatient hospitalization is medically necessary and the clinically appropriate intervention at this time. We will monitor medications and make changes as indicated. Likely to stay 1-3 days Coding Level of Care Code Acute Sustainability Executive Director for [facility] Fwd Diagnoses Schizoaffective disorder, unspecified F25.9 Schizoaffective disorder type: unspecified Acute psychosis F23 Hallucinations R44.3 Methamphetamine use disorder, severe F15.20 Cannabis use disorder, severe, dependence F12.20 Depression with suicidal ideation F32.A; R45.851 Anxiety F41.9
[2022-06-01 14:00] VITALS: BP 146/100; PULSE 107; RESP 18; TEMP 36.6; O2SAT 95
--- NOTE | 2022-06-01 14:48 | PC.NURSE ---
pt cont to speak to non people, up to nurses station saying nonsensical speech and tells this nurse they told me to ask about vargas fatima and where he is hiding , pt given patrick lane, pt lingering at nurses station and has to be redirected often
[2022-06-01] MEDS: OLANZapine 10 mg TABLET 30 MG PO (20:43)
[2022-06-01] MEDS: trazodone 150 mg Tablet PO (20:43)
[2022-06-01] MEDS: divalproex ER 250 mg Tablet (24H) 750 MG PO (20:43)
[2022-06-01 21:58] VITALS: BP 161/81; PULSE 118; RESP 18; TEMP 36.5; O2SAT 94
[2022-06-01] MEDS: hyDROXYzine 25 mg Capsule 50 MG PO (22:30)
[2022-06-02] MEDS: nicotine 4 mg lozenge MUCOUS MEM ×9 (04:49→22:29)
[2022-06-02] MEDS: ibuprofen 600 mg Tablet PO (04:49)
[2022-06-02 06:00] VITALS: BP 150/94; PULSE 97; RESP 18; TEMP 37; O2SAT 97
[2022-06-02] MEDS: methocarbamol 750 mg Tablet PO ×2 (08:30→15:27)
[2022-06-02 08:31] VITALS: BP 150/94
[2022-06-02] MEDS: gabapentin 300 mg Capsule 600 MG PO ×3 (08:31→20:08)
[2022-06-02] MEDS: haloperidol 5 mg Tablet PO ×3 (08:31→20:08)
[2022-06-02] MEDS: naproxen 500 mg Tablet PO ×2 (08:31→15:26)
[2022-06-02] MEDS: losartan 50 mg Tablet 25 MG PO (08:31)
[2022-06-02] MEDS: b-complex-vitamin c Tablet 1 EACH PO (08:31)
[2022-06-02] MEDS: divalproex ER 500 mg Tablet (24H) PO (08:31)
[2022-06-02] MEDS: benztropine 1 mg Tablet PO (10:04)
[2022-06-02] MEDS: OLANZapine 5 mg ODT PO (10:04)
[2022-06-02 14:00] VITALS: BP 141/84; PULSE 86; RESP 20; TEMP 37.1; O2SAT 96
--- NOTE | 2022-06-02 17:59 | W.PM.NPUPNS ---
Subjective NPU Subjective: Patient was in today reporting that he wants to be discharged. He had an episode this morning where he was delusional about interacting with the social work team and during a review of that information with the nurses he turned and told this journalists and other writers to shut up, however this journalists and other writers was not even in the building. We discussed the plan for initiating a 21-day hold tomorrow given his level of psychosis and disorganization. Initially, this journalists and other writers outlier but was able to be redirected and calmed through discussion. Mental Status Exam MSE Comments: This is an obese, tall white male? in hospital scrubs with adequate grooming and eye contact. No abnormal movements except for mild psychomotor retardation. Cooperative with exam in mild to moderate distress. Speech was slightly decreased rate and volume. Mood described as fine, I want to go home, affect was irritable at times. Thought process appeared disorganized. Thought content: patient denies suicidal or homicidal ideation, no delusions reported or but paranoid and persecutory delusions noted, and denies any auditory or visual hallucinations, but did appear at times to be attending to internal stimuli. Attention and concentration appeared intact and memory appeared unreliable, but none were formally tested. He is alert and oriented x3. Insight and judgment are impaired. Impulse control is limited. Vitals/I&O/Wt Last Vital Signs Temp 98.6 F 06/02/22 06:00 Pulse 97 06/02/22 06:00 Resp 18 06/02/22 06:00 BP 150/94 06/02/22 06:00 Pulse Ox 97 06/02/22 06:00 O2 Del Method 06/02/22 06:00 Data NPU : 05/29/22 12:45 05/29/22 12:45 A&P Assessment and plan (1) Schizoaffective disorder, unspecified: Qualifiers: Schizoaffective disorder type: unspecified Qualified Code(s): F25.9 - Schizoaffective disorder, unspecified (2) Acute psychosis: (3) Hallucinations: (4) Methamphetamine use disorder, severe: (5) Cannabis use disorder, severe, dependence: (6) Depression with suicidal ideation: (7) Anxiety: Plan This is a 52 year old white male with a long history of trauma and addiction with genetic loading for mental health and addiction issues with continuing mental health challenges and methamphetamine abuse who presents after getting in trouble for trespassing leading to his admission which he reports is unnecessary. Plan TO-15 minute med checks Continue medications per last discharge medications Encourage individual, group and milieu therapies. Encouraged him to explore sober living treatment after discharge at the high level of care to which he is willing to commit. Initiate 21-day hold Involuntary Hold Information 96 Hour Hold: 96 Hour Involuntary Admission: Yes 96 Hour Hold Ending Date: 06/06/22 96 Hour Hold Ending Time: 00:01 Attestations NPU Medical Necessity Statement*: Inpatient hospitalization is medically necessary and the clinically appropriate intervention at this time. We will monitor medications and make changes as indicated. Likely length of stay 6-10 days. Coding Level of Care Code Acute Program Facilitator for g Fwd Diagnoses Schizoaffective disorder, unspecified F25.9 Schizoaffective disorder type: unspecified Acute psychosis F23 Hallucinations R44.3 Methamphetamine use disorder, severe F15.20 Cannabis use disorder, severe, dependence F12.20 Depression with suicidal ideation F32.A; R45.851 Anxiety F41.9
[2022-06-02] MEDS: divalproex ER 250 mg Tablet (24H) 750 MG PO (20:07)
[2022-06-02] MEDS: trazodone 150 mg Tablet PO (20:08)
[2022-06-02] MEDS: OLANZapine 10 mg TABLET 30 MG PO (20:08)
[2022-06-02 21:28] VITALS: BP 180/87; PULSE 91; RESP 17; TEMP 36.8; O2SAT 96
[2022-06-02] MEDS: quetiapine 25 mg Tablet 50 MG PO (22:21)
[2022-06-02] MEDS: hyDROXYzine 25 mg Capsule 50 MG PO (22:29)
[2022-06-03 05:34] VITALS: BP 109/78; PULSE 111; RESP 18; TEMP 36.6; O2SAT 95
[2022-06-03 08:34] VITALS: BP 109/78
[2022-06-03] MEDS: losartan 50 mg Tablet 25 MG PO (08:34)
[2022-06-03] MEDS: b-complex-vitamin c Tablet 1 EACH PO (08:34)
[2022-06-03] MEDS: divalproex ER 500 mg Tablet (24H) PO (08:34)
[2022-06-03] MEDS: gabapentin 300 mg Capsule 600 MG PO ×3 (08:34→20:05)
[2022-06-03] MEDS: nicotine 4 mg lozenge MUCOUS MEM ×8 (08:35→22:09)
[2022-06-03] MEDS: methocarbamol 750 mg Tablet PO ×2 (08:35→18:16)
[2022-06-03] MEDS: haloperidol 5 mg Tablet PO ×3 (08:35→20:06)
[2022-06-03] MEDS: naproxen 500 mg Tablet PO ×2 (08:35→18:16)
--- NOTE | 2022-06-03 10:00 | PC.NURSE ---
Behavioral Assessment Patient cooperative. Patient denies SI/HI. Patient is actively experiencing auditory and visual hallucinations. This morning he has been pacing the hallways talking to himself. He also began roundhouse kicking the wall this morning and when this RN asked what he was doing he said he was practicing his MMA. Patient was redirected and stopped kicking the wall. Patient has been laughing intermittently all morning. He told several stories to this RN in a matter of minutes about Halloween, marijuana, where his kids lived, what he did in [place], and an unintelligble story that had something to do with the war. When patient becomes agitated, which is rare, it is towards a voice/person he is hearing and/or seeing and not towards the staff or other patients.
[2022-06-03] MEDS: ibuprofen 600 mg Tablet PO ×2 (10:41→22:02)
--- NOTE | 2022-06-03 11:05 | P.NPUPN_ITS ---
Subjective NPU Subjective: Patient presents today not happy about the discussion about a 21- day hold but continues to be quite disorganized and speaking randomly both to this designer writer and to himself as he paces the hallways. He continues to demonstrate limited insight into the challenges that he created by the impact of methamphetamine on his mental health. Mental Status Exam MSE Comments: This is an obese, tall white male? in hospital scrubs with adequate grooming and eye contact. No abnormal movements except for mild ps ychomotor retardation intermixed with occasional extreme psychomotor agitation. Cooperative with exam in moderate to extreme distress. Speech was slightly decreased rate and volume with occasional loud outbursts. Mood described as okay, I want to go home, affect was irritable at times. Thought process appeared disorganized. Thought content: patient denies suicidal or homicidal ideation, no delusions reported or but paranoid and persecutory delusions noted, and denies any auditory or visual hallucinations, but did appear at times to be attending to internal stimuli. Attention and concentration appeared intact and memory appeared unreliable, but none were formally tested. He is alert and oriented x3. Insight and judgment are impaired. Impulse control is impaired. Vitals/I&O/Wt Last Vital Signs Temp 97.9 F 06/03/22 05:34 Pulse 111 H 06/03/22 05:34 Resp 18 06/03/22 05:34 BP 109/78 06/03/22 05:34 Pulse Ox 95 06/03/22 05:34 O2 Del Method 06/03/22 05:34 Data NPU : 05/29/22 12:45 05/29/22 12:45 A&P Assessment and plan (1) Schizoaffective disorder, unspecified: Qualifiers: Schizoaffective disorder type: unspecified Qualified Code(s): F25.9 - Schizoaffective disorder, unspecified (2) Acute psychosis: (3) Hallucinations: (4) Methamphetamine use disorder, severe: (5) Cannabis use disorder, severe, dependence: (6) Depression with suicidal ideation: (7) Anxiety: Plan This is a 52 year old white male with a long history of trauma and addiction with genetic loading for mental health and addiction issues with continuing mental health challenges and methamphetamine abuse who presents after getting in trouble for trespassing leading to his admission which he reports is unnecessary. Plan TO-15 minute med checks Continue medications per last discharge medications Encourage individual, group and milieu therapies. Encouraged him to explore sober living treatment after discharge at the high level of care to which he is willing to commit. 21-day hold paperwork submitted this morning. Involuntary Hold Information 2 96 Hour Hold: 96 Hour Involuntary Admission: Yes 96 Hour Hold Ending Date: 06/06/22 96 Hour Hold Ending Time: 00:01 Attestations NPU Medical Necessity Statement*: Inpatient hospitalization is medically necessary and the clinically appropriate intervention at this time. We will monitor medications and make changes as indicated. Likely length of stay 6-10 days. Coding Level of Care Code Acute Sweet Pickle Maker for g Fwd Diagnoses Schizoaffective disorder, unspecified F25.9 Schizoaffective disorder type: unspecified Acute psychosis F23 Hallucinations R44.3 Methamphetamine use disorder, severe F15.20 Cannabis use disorder, severe, dependence F12.20 Depression with suicidal ideation F32.A; R45.851 Anxiety F41.9
[2022-06-03] MEDS: hyDROXYzine 25 mg Capsule 50 MG PO (11:08)
[2022-06-03] MEDS: OLANZapine 5 mg ODT PO ×3 (11:08→20:34)
[2022-06-03 14:00] VITALS: BP 152/94; PULSE 98; RESP 16; TEMP 37.1; O2SAT 98
[2022-06-03] MEDS: OLANZapine 10 mg TABLET 30 MG PO (20:04)
[2022-06-03] MEDS: quetiapine 25 mg Tablet 50 MG PO (20:05)
[2022-06-03] MEDS: divalproex ER 250 mg Tablet (24H) 750 MG PO (20:05)
[2022-06-03] MEDS: trazodone 150 mg Tablet PO (20:05)
[2022-06-03 22:00] VITALS: BP 135/94; PULSE 95; RESP 19; O2SAT 97
[2022-06-03] MEDS: diphenhydrAMINE 50 mg Capsule PO (22:03)
[2022-06-03] MEDS: LORazepam 2 mg Tablet PO (22:03)
[2022-06-04 06:00] VITALS: RESP 12
[2022-06-04 08:05] VITALS: BP 132/80
[2022-06-04] MEDS: naproxen 500 mg Tablet PO ×2 (08:05→18:01)
[2022-06-04] MEDS: losartan 50 mg Tablet 25 MG PO (08:05)
[2022-06-04] MEDS: diphenhydrAMINE 50 mg Capsule PO (08:05)
[2022-06-04] MEDS: LORazepam 2 mg Tablet PO (08:05)
[2022-06-04] MEDS: methocarbamol 750 mg Tablet PO ×2 (08:05→18:01)
[2022-06-04] MEDS: haloperidol 5 mg Tablet PO (08:05)
[2022-06-04] MEDS: b-complex-vitamin c Tablet 1 EACH PO (08:05)
[2022-06-04] MEDS: divalproex ER 500 mg Tablet (24H) PO (08:05)
[2022-06-04] MEDS: nicotine 4 mg lozenge MUCOUS MEM ×7 (08:05→22:15)
[2022-06-04] MEDS: gabapentin 300 mg Capsule 600 MG PO ×3 (10:27→19:49)
--- NOTE | 2022-06-04 10:36 | W.PM.NPUPNS ---
Subjective NPU Subjective: Patient presents today reporting that he is doing fine. He reports significant psychomotor slowing which is notable and came from medication administered when he was getting quite agitated. He began discussing discharge today and was saddened by this pattern chart writer's report that he will be going to his 21-day hold hearing on Monday, that his behavior has been bizarre and the worst noted in all his hospitalizations and our goal is to assist him in stabilization and that we fear that he is moving towards permanent damage from methamphetamine induced versus exacerbated psychotic episodes he is having frequently. Mental Status Exam MSE Comments: This is an obese, tall white male? in hospital scrubs with adequate grooming and eye contact. No abnormal movements except for mild psychomotor retardation intermixed with occasional significant psychomotor agitation. Cooperative with exam in moderate distress. Speech was slightly decreased rate and volume. Mood described as okay, I want to go home, affect was subdued. Thought process appeared more organized. Thought content: patient denies suicidal or homicidal ideation, no delusions reported or but paranoid and persecutory delusions noted, and denies any auditory or visual hallucinations, but did appear at times to be attending to internal stimuli. Attention and concentration appeared intact and memory appeared unreliable, but none were formally tested. He is alert and oriented x3. Insight and judgment are impaired. Impulse control is impaired. Vitals/I&O/Wt Last Vital Signs Temp 98.7 F 06/03/22 14:00 Pulse 95 06/03/22 22:00 Resp 19 H 06/03/22 22:00 BP 135/94 06/03/22 22:00 Pulse Ox 97 06/03/22 22:00 O2 Del Method 06/03/22 14:00 Data NPU : 05/29/22 12:45 05/29/22 12:45 A&P Assessment and plan (1) Schizoaffective disorder, unspecified: Qualifiers: Schizoaffective disorder type: unspecified Qualified Code(s): F25.9 - Schizoaffective disorder, unspecified (2) Acute psychosis: (3) Hallucinations: (4) Methamphetamine use disorder, severe: (5) Cannabis use disorder, severe, dependence: (6) Depression with suicidal ideation: (7) Anxiety: Plan This is a 52 year old white male with a long history of trauma and addiction with genetic loading for mental health and addiction issues with continuing mental health challenges and methamphetamine abuse who presents after getting in trouble for trespassing leading to his admission which he reports is unnecessary. Plan TO-15 minute med checks Continue medications per last discharge medications Encourage individual, group and milieu therapies. Encouraged him to explore sober living treatment after discharge at the high level of care to which he is willing to commit. 21-day hold paperwork submitted 06/03/2022. Involuntary Hold Information 96 Hour Hold: 96 Hour Involuntary Admission: Yes 96 Hour Hold Ending Date: 06/06/22 96 Hour Hold Ending Time: 00:01 Attestations NPU Medical Necessity Statement*: Inpatient hospitalization is medically necessary and the clinically appropriate intervention at this time. We will monitor medications and make changes as indicated. Likely length of stay 6-10 days. Coding Level of Care Code Acute Louver Door Assembler for [facility]ayod Diagnoses Schizoaffective disorder, unspecified F25.9 Schizoaffective disorder type: unspecified Acute psychosis F23 Hallucinations R44.3 Methamphetamine use disorder, severe F15.20 Cannabis use disorder, severe, dependence F12.20 Depression with suicidal ideation F32.A; R45.851 Anxiety F41.9
[2022-06-04] MEDS: ibuprofen 600 mg Tablet PO (13:47)
[2022-06-04 14:00] VITALS: BP 111/76; PULSE 99; RESP 18; TEMP 36.9; O2SAT 97
[2022-06-04 19:13] VITALS: BP 117/78; PULSE 91; RESP 16; TEMP 36.6; O2SAT 99
[2022-06-04] MEDS: OLANZapine 10 mg TABLET 30 MG PO (19:48)
[2022-06-04] MEDS: divalproex ER 250 mg Tablet (24H) 750 MG PO (19:49)
[2022-06-04] MEDS: trazodone 150 mg Tablet PO (19:49)
[2022-06-04] MEDS: quetiapine 25 mg Tablet 50 MG PO (19:49)
[2022-06-05] MEDS: nicotine 4 mg lozenge MUCOUS MEM ×8 (01:19→21:57)
[2022-06-05] MEDS: diphenhydrAMINE 50 mg Capsule PO ×2 (01:36→22:23)
[2022-06-05] MEDS: LORazepam 2 mg Tablet PO ×2 (01:36→22:23)
[2022-06-05] MEDS: OLANZapine 5 mg ODT PO (01:36)
[2022-06-05 06:00] VITALS: BP 118/80; PULSE 100; RESP 16; TEMP 36.6; O2SAT 98; BMI 24.8
[2022-06-05 08:08] VITALS: BP 118/80
[2022-06-05] MEDS: b-complex-vitamin c Tablet 1 EACH PO (08:08)
[2022-06-05] MEDS: naproxen 500 mg Tablet PO ×2 (08:08→17:26)
[2022-06-05] MEDS: methocarbamol 750 mg Tablet PO ×2 (08:08→17:26)
[2022-06-05] MEDS: divalproex ER 500 mg Tablet (24H) PO (08:08)
[2022-06-05] MEDS: losartan 50 mg Tablet 25 MG PO (08:08)
[2022-06-05] MEDS: hyDROXYzine 25 mg Capsule 50 MG PO ×2 (08:09→15:20)
[2022-06-05] MEDS: gabapentin 300 mg Capsule 600 MG PO ×3 (08:09→20:04)
--- NOTE | 2022-06-05 10:50 | PC.NURSE ---
AT NURSES STATION. DENIES SI/HI AND AVH AT THIS TIME. PT IS OBSERVED TALKING TO UNSEEN OTHERS AND RESPONDING TO INERNAL AND EXTERNAL STIMULI. PT WAS GIVEN VISTARIL 50 MG ORDERED FOR MILD ANXIETY. PT UP TO NURSES STATION FREQUENTLY AND IS INTRUSIVE AND IMPULSIBE. TALKING TO SELF AND MUMBLING TO WHERE NO ONE CAN UNDERSTAND. WHEN ASKED WHAT HE SAID PT STATES i'M NOT TALKING TO YOU. VERBALLY REDIRECTED
--- NOTE | 2022-06-05 10:54 | PC.NURSE ---
PT CONTINUES TO TALK TO UNSEEN OTHERS AND RESPONS TO INTERNAL AND EXTERNAL STIMULI. PT STATES YOU JUST NEED TO LET ME LEAVE, THAT SEC REPORTING CONSULTANT IS LYING ON ME. INFORMED PT THAT THIS RN DOES NOT DECIDE WHO LEAVES THAT IS UP TO DR. POWELL. CONTINUES TO DENY AVH AT THIS TIME BUT IT OBVIOUS HE IS RESPONDING. NEEDS MET. CONTINUES TO BE INTRUSIVE AND GOES TO THE PHONE TALKING TO UNSEEN OTHERS AND THEN SLAMS THE PHONE DOWN. ABLE TO BE VERBALLY REDIRECTED.
[2022-06-05 14:00] VITALS: BP 126/83; PULSE 103; RESP 20; TEMP 37.1; O2SAT 95
--- NOTE | 2022-06-05 14:17 | PC.NURSE ---
PT CONTINUES TO SPEAK TO UNSEEN OTHERS. WAS OBSERVED ON THE PHONE SPEAKING TO SOMEONE BUT NO ONE WAS ON THE PHONE. CONTINUES TO SPEAK TO SENA AND IS VERY ANIMATED WHILE DOING SO. 1500 MEDS GIVEN, PT STATED HE WAS STILL ANXIOUS. PT APPEARS TO BE SLEEPY WITH MILD ANXIETY NOTED. VISTARIL WAS GIVEN ORDERED. NEEDS MET. PT WENT TO DAY ROOM ONCE MEDS WERE TAKEN.
--- NOTE | 2022-06-05 16:48 | P.NPUPN_ITS ---
Subjective NPU Subjective: Patient presents today somewhat less agitated and irritable but still feeling that he has been somehow taken advantage of by the system by being in the hospital in the first place and so he is unhappy about the possibility of a 21-day extension. We continued to discuss the clear impact of met hamphetamines and drug use on his cognitive ability and his mental health. He reports that he is feeling fine/better and there are reports of some improvement over the constant psychotic self talk of the previous few days. Mental Status Exam MSE Comments: This is an obese, tall white male? in hospital scrubs with adequate grooming and eye contact. No abnormal movements except for mild psychomotor retardation. Cooperative with exam in mild distress. Speech was slightly decreased rate and volume. Mood described as better, I want to go home, affect was subdued. Thought process appeared more organized. Thought content: patient denies suicidal or homicidal ideation, no delusions reported or but paranoid and persecutory delusions noted, and denies any auditory or visual hallucinations. Attention and concentration appeared intact and memory appeared unreliable, but none were formally tested. He is alert and oriented x3. Insight and judgment are impaired. Impulse control is impaired. Vitals/I&O/Wt Last Vital Signs Temp 97.6 F 06/05/22 21:18 Pulse 72 06/05/22 21:18 Resp 16 06/05/22 21:18 BP 162/78 06/05/22 21:18 Pulse Ox 96 06/05/22 21:18 O2 Del Method 06/05/22 21:18 Weight last 48 hrs Weight 86.545 kg Data NPU : 05/29/22 12:45 05/29/22 12:45 A&P Assessment and plan (1) Schizoaffective disorder, unspecified: Qualifiers: Schizoaffective disorder type: unspecified Qualified Code(s): F25.9 - Schizoaffective disorder, unspecified (2) Acute psychosis: (3) Hallucinations: (4) Methamphetamine use disorder, severe: (5) Cannabis use disorder, severe, dependence: (6) Depression with suicidal ideation: (7) Anxiety: Plan This is a 52 year old white male with a long history of trauma and addiction with genetic loading for mental health and addiction issues with continuing mental health challenges and methamphetamine abuse who presents after getting in trouble for trespassing leading to his admission which he reports is unnecessary. Plan TO-15 minute med checks Continue medications per last discharge medications Encourage individual, group and milieu therapies. Encouraged him to explore sober living treatment after discharge at the high level of care to which he is willing to commit. 21-day hold hearing tomorrow. Involuntary Hold Information 96 Hour Hold: 96 Hour Involuntary Admission: Yes 96 Hour Hold Ending Date: 06/06/22 96 Hour Hold Ending Time: 00:01 Attestations NPU Medical Necessity Statement*: Inpatient hospitalization is medically necessary and the clinically appropriate intervention at this time. We will monitor medications and make changes as indicated. Likely length of stay 6-10 days. Coding Level of Care Code Acute Plant And Instrument Engineer for Rosie Fwd Diagnoses Schizoaffective disorder, unspecified F25.9 Schizoaffective disorder type: unspecified Acute psychosis F23 Hallucinations R44.3 Methamphetamine use disorder, severe F15.20 Cannabis use disorder, severe, dependence F12.20 Depression with suicidal ideation F32.A; R45.851 Anxiety F41.9
[2022-06-05] MEDS: quetiapine 25 mg Tablet 50 MG PO (20:03)
[2022-06-05] MEDS: divalproex ER 250 mg Tablet (24H) 750 MG PO (20:03)
[2022-06-05] MEDS: OLANZapine 10 mg TABLET 30 MG PO (20:03)
[2022-06-05] MEDS: trazodone 150 mg Tablet PO (20:04)
[2022-06-05] MEDS: neomycin-poly-bacitracin oint 28 gm 1 APPLIC TOPICAL (20:04)
[2022-06-05 21:18] VITALS: BP 162/78; PULSE 72; RESP 16; TEMP 36.4; O2SAT 96
[2022-06-06] MEDS: nicotine 4 mg lozenge MUCOUS MEM ×10 (00:34→23:30)
[2022-06-06] MEDS: acetaminophen 325 mg Tablet 650 MG PO (02:03)
[2022-06-06] MEDS: hyDROXYzine 25 mg Capsule 50 MG PO (02:04)
--- NOTE | 2022-06-06 04:24 | PC.NURSE ---
pt came to desk requesting coffee. pt educated that coffee is not served until 6am. pt stated Doc better let me out today. pt was told the doctor is the only one who can give the release order. pt voiced he has been here his 96 hours. pt voiced his disgust when he was told weekends and holidays don't count in the 96 hour hold. pt has not slept this night except in hour intervals. pt has been noted walking in the hallway with his eyes closed and having to be led back to his room several times this night.
[2022-06-06 06:00] VITALS: BP 109/79; PULSE 100; RESP 17; TEMP 36.8; O2SAT 96
[2022-06-06] MEDS: b-complex-vitamin c Tablet 1 EACH PO (08:15)
[2022-06-06] MEDS: gabapentin 300 mg Capsule 600 MG PO ×3 (08:15→19:45)
[2022-06-06 08:16] VITALS: BP 109/79
[2022-06-06] MEDS: naproxen 500 mg Tablet PO ×2 (08:16→17:26)
[2022-06-06] MEDS: divalproex ER 500 mg Tablet (24H) PO (08:16)
[2022-06-06] MEDS: losartan 50 mg Tablet 25 MG PO (08:16)
[2022-06-06] MEDS: methocarbamol 750 mg Tablet PO ×2 (10:32→17:26)
[2022-06-06 14:00] VITALS: BP 131/87; PULSE 86; RESP 18; O2SAT 99
--- NOTE | 2022-06-06 14:34 | W.PM.NPUPNS ---
Subjective NPU Subjective: Patient presents today reporting that he is going to the hearing because he thinks that it is unfair that he is here in the first place. We discussed the circumstances behind his arrest and the 96-hour hold and he continues to demonstrate no insight surrounding that event. We discussed needing to focus on his recovery if he plans to stay out of the hospital and ultimately avoid guardianship. Mental Status Exam MSE Comments: This is an obese, tall white male? in hospital scrubs with adequate grooming and eye contact. No abnormal movements except for mild psychomotor retardation. Cooperative with exam in mild distress. Speech was slightly decreased rate and volume. Mood described as better, I want to go home, affect was subdued. Thought process appeared more organized. Thought content: patient denies suicidal or homicidal ideation, no delusions reported or but paranoid and persecutory delusions noted, and denies any auditory or visual hallucinations. Attention and concentration appeared intact and memory appeared unreliable, but none were formally tested. He is alert and oriented x3. Insight and judgment are impaired. Impulse control is impaired. Vitals/I&O/Wt Last Vital Signs Temp 98.2 F 06/06/22 06:00 Pulse 100 06/06/22 06:00 Resp 17 06/06/22 06:00 BP 109/79 06/06/22 08:16 Pulse Ox 96 06/06/22 06:00 O2 Del Method 06/06/22 06:00 Weight last 48 hrs Weight 86.545 kg Data NPU : 05/29/22 12:45 05/29/22 12:45 A&P Assessment and plan (1) Schizoaffective disorder, unspecified: Qualifiers: Schizoaffective disorder type: unspecified Qualified Code(s): F25.9 - Schizoaffective disorder, unspecified (2) Acute psychosis: (3) Hallucinations: (4) Methamphetamine use disorder, severe: (5) Cannabis use disorder, severe, dependence: (6) Depression with suicidal ideation: (7) Anxiety: Plan This is a 52 year old white male with a long history of trauma and addiction with genetic loading for mental health and addiction issues with continuing mental health challenges and methamphetamine abuse who presents after getting in trouble for trespassing leading to his admission which he reports is unnecessary. Plan TO-15 minute med checks Continue medications per last discharge medications Encourage individual, group and milieu therapies. Encouraged him to explore sober living treatment after discharge at the high level of care to which he is willing to commit. 21-day hold hearing today at 315. Involuntary Hold Information 96 Hour Hold: 96 Hour Involuntary Admission: Yes 96 Hour Hold Ending Date: 06/06/22 96 Hour Hold Ending Time: 00:01 Attestations NPU Medical Necessity Statement*: Inpatient hospitalization is medically necessary and the clinically appropriate intervention at this time. We will monitor medications and make changes as indicated. Likely length of stay 6-10 days. 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
[2022-06-06] MEDS: OLANZapine 10 mg TABLET 30 MG PO (19:45)
[2022-06-06] MEDS: quetiapine 25 mg Tablet 50 MG PO (19:45)
[2022-06-06] MEDS: divalproex ER 250 mg Tablet (24H) 750 MG PO (19:45)
[2022-06-06] MEDS: trazodone 150 mg Tablet PO (19:47)
[2022-06-06 22:00] VITALS: BP 138/89; PULSE 107; RESP 18; TEMP 36.5; O2SAT 96
[2022-06-07] MEDS: nicotine 4 mg lozenge MUCOUS MEM ×7 (02:31→20:30)
[2022-06-07] MEDS: hyDROXYzine 25 mg Capsule 50 MG PO (03:08)
[2022-06-07 06:00] VITALS: BP 135/88; PULSE 104; RESP 18; TEMP 36.6; O2SAT 95
[2022-06-07] MEDS: ibuprofen 600 mg Tablet PO (06:38)
[2022-06-07 08:53] VITALS: BP 139/88
[2022-06-07] MEDS: methocarbamol 750 mg Tablet PO ×2 (08:53→18:22)
[2022-06-07] MEDS: divalproex ER 500 mg Tablet (24H) PO (08:53)
[2022-06-07] MEDS: losartan 50 mg Tablet 25 MG PO (08:53)
[2022-06-07] MEDS: naproxen 500 mg Tablet PO ×2 (08:54→18:22)
[2022-06-07] MEDS: b-complex-vitamin c Tablet 1 EACH PO (08:54)
[2022-06-07] MEDS: gabapentin 300 mg Capsule 600 MG PO ×3 (08:54→19:56)
--- NOTE | 2022-06-07 09:38 | PC.NURSE ---
THIS NURSE APPROVES AND AGREES WITH CHARTING AND DOCUMENTATION OF AM ASSESSMENT DONE BY CAROL CONLEY
[2022-06-07] MEDS: benztropine 1 mg Tablet PO (12:07)
[2022-06-07] MEDS: LORazepam 2 mg Tablet PO (12:07)
[2022-06-07] MEDS: haloperidol 5 mg Tablet PO (12:07)
[2022-06-07] MEDS: diphenhydrAMINE 50 mg Capsule PO (12:07)
[2022-06-07 14:00] VITALS: BP 133/88; PULSE 94; RESP 18; TEMP 36.6; O2SAT 98
--- NOTE | 2022-06-07 16:59 | W.PM.NPUPNS ---
Subjective NPU Subjective: Patient presents today reporting that he is feeling better and was less intrusive about his desire for discharge. He continues to demonstrate limited insight into the impact of his drug use and his level of impairment when he is actively using. We discussed continuing to focus on his sobriety and stability prior to discharge. Mental Status Exam MSE Comments: This is an obese, tall white male? in hospital scrubs with adequate grooming and eye contact. No abnormal movements except for mild psychomotor retardation. Cooperative with exam in mild distress. Speech was slightly decreased rate and volume. Mood described as okay, affect was subdued. Thought process appeared more organized. Thought content: patient denies suicidal or homicidal ideation, no delusions reported or but paranoid and persecutory delusions noted, and denies any auditory or visual hallucinations. Attention and concentration appeared intact and memory appeared unreliable, but none were formally tested. He is alert and oriented x3. Insight and judgment are impaired. Impulse control is impaired. Vitals/I&O/Wt Last Vital Signs Temp 98.2 F 06/07/22 22:00 Pulse 97 06/07/22 22:00 Resp 16 06/07/22 22:00 BP 130/89 06/07/22 22:00 Pulse Ox 93 06/07/22 22:00 O2 Del Method 06/07/22 22:00 Data NPU : 05/29/22 12:45 05/29/22 12:45 A&P Assessment and plan (1) Schizoaffective disorder, unspecified: Qualifiers: Schizoaffective disorder type: unspecified Qualified Code(s): F25.9 - Schizoaffective disorder, unspecified (2) Acute psychosis: (3) Hallucinations: (4) Methamphetamine use disorder, severe: (5) Cannabis use disorder, severe, dependence: (6) Depression with suicidal ideation: (7) Anxiety: Plan This is a 52 year old white male with a long history of trauma and addiction with genetic loading for mental health and addiction issues with continuing mental health challenges and methamphetamine abuse who presents after getting in trouble for trespassing leading to his admission which he reports is unnecessary. Plan TO-15 minute med checks Continue medications per last discharge medications Encourage individual, group and milieu therapies. Encouraged him to explore sober living treatment after discharge at the high level of care to which he is willing to commit. 21-day hold granted. Involuntary Hold Information 96 Hour Hold: 96 Hour Involuntary Admission: Yes 96 Hour Hold Ending Date: 06/06/22 96 Hour Hold Ending Time: 00:01 Attestations NPU Medical Necessity Statement*: Inpatient hospitalization is medically necessary and the clinically appropriate intervention at this time. We will monitor medications and make changes as indicated. Likely length of stay 5-9 days. 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
[2022-06-07] MEDS: OLANZapine 10 mg TABLET 30 MG PO (19:55)
[2022-06-07] MEDS: quetiapine 25 mg Tablet 50 MG PO (19:56)
[2022-06-07] MEDS: divalproex ER 250 mg Tablet (24H) 750 MG PO (19:56)
[2022-06-07] MEDS: trazodone 150 mg Tablet PO (19:56)
[2022-06-07 22:00] VITALS: BP 130/89; PULSE 97; RESP 16; TEMP 36.8; O2SAT 93
[2022-06-08] MEDS: nicotine 4 mg lozenge MUCOUS MEM ×8 (01:21→21:46)
[2022-06-08 05:51] VITALS: BP 120/88; PULSE 87; RESP 18; TEMP 36.7; O2SAT 97
[2022-06-08] MEDS: gabapentin 300 mg Capsule 600 MG PO ×3 (08:22→20:39)
[2022-06-08] MEDS: b-complex-vitamin c Tablet 1 EACH PO (08:22)
[2022-06-08 08:23] VITALS: BP 120/88
[2022-06-08] MEDS: losartan 50 mg Tablet 25 MG PO (08:23)
[2022-06-08] MEDS: divalproex ER 500 mg Tablet (24H) PO (08:23)
[2022-06-08] MEDS: methocarbamol 750 mg Tablet PO ×2 (08:25→17:44)
[2022-06-08] MEDS: naproxen 500 mg Tablet PO ×2 (08:25→17:44)
[2022-06-08] MEDS: nicotine 2 mg Gum BUCCAL (13:34)
[2022-06-08 14:00] VITALS: BP 148/84; PULSE 94; RESP 18; TEMP 36.6; O2SAT 98
--- NOTE | 2022-06-08 14:45 | W.PM.NPUPNS ---
Subjective NPU Subjective: Patient presented today reporting that he is feeling better. At 1 point he did get agitated about still being here and needed significant redirection of his anger. 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 We discussed the fact that he was to make sure that he was doing better and that our greatest concern is the impact of methamphetamine on his mental health. Mental Status Exam MSE Comments: This is an obese, tall white male? in hospital scrubs with adequate grooming and eye contact. No abnormal movements except for mild psychomotor retardation. Cooperative with exam in mild distress. Speech was slightly decreased rate and volume. Mood described as okay, affect was more animated. Thought process appeared more organized. Thought content: patient denies suicidal or homicidal ideation, no delusions reported or but paranoid and persecutory delusions noted, and denies any auditory or visual hallucinations. Attention and concentration appeared intact and memory appeared unreliable, but none were formally tested. He is alert and oriented x3. Insight and judgment are impaired. Impulse control is impaired. Vitals/I&O/Wt Last Vital Signs Temp 98 F 06/08/22 14:00 Pulse 94 06/08/22 14:00 Resp 18 06/08/22 14:00 BP 148/84 06/08/22 14:00 Pulse Ox 98 06/08/22 14:00 O2 Del Method 06/08/22 14:00 Data NPU : 05/29/22 12:45 05/29/22 12:45 A&P Assessment and plan (1) Schizoaffective disorder, unspecified: Qualifiers: Schizoaffective disorder type: unspecified Qualified Code(s): F25.9 - Schizoaffective disorder, unspecified (2) Acute psychosis: (3) Hallucinations: (4) Methamphetamine use disorder, severe: (5) Cannabis use disorder, severe, dependence: (6) Depression with suicidal ideation: (7) Anxiety: Plan This is a 52 year old white male with a long history of trauma and addiction with genetic loading for mental health and addiction issues with continuing mental health challenges and methamphetamine abuse who presents after getting in trouble for trespassing leading to his admission which he reports is unnecessary. Plan TO-15 minute med checks Continue medications per last discharge medications Encourage individual, group and milieu therapies. Encouraged him to explore sober living treatment after discharge at the high level of care to which he is willing to commit. 21-day hold granted. Involuntary Hold Information 96 Hour Hold: 96 Hour Involuntary Admission: Yes 96 Hour Hold Ending Date: 06/06/22 96 Hour Hold Ending Time: 00:01 Attestations NPU Medical Necessity Statement*: Inpatient hospitalization is medically necessary and the clinically appropriate intervention at this time. We will monitor medications and make changes as indicated. Likely length of stay 4-8 days. 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
[2022-06-08] MEDS: diphenhydrAMINE 50 mg Capsule PO (17:44)
[2022-06-08] MEDS: haloperidol 5 mg Tablet PO (17:44)
[2022-06-08] MEDS: OLANZapine 5 mg ODT PO (17:47)
[2022-06-08] MEDS: trazodone 150 mg Tablet PO (20:39)
[2022-06-08] MEDS: OLANZapine 10 mg TABLET 30 MG PO (20:39)
[2022-06-08] MEDS: hyDROXYzine 25 mg Capsule 50 MG PO (20:39)
[2022-06-08] MEDS: divalproex ER 250 mg Tablet (24H) 750 MG PO (20:39)
[2022-06-08] MEDS: quetiapine 25 mg Tablet 50 MG PO (20:40)
[2022-06-08 20:44] VITALS: BP 161/99; PULSE 87; RESP 18; TEMP 36.7; O2SAT 99
[2022-06-09] MEDS: nicotine 4 mg lozenge MUCOUS MEM ×10 (00:14→23:11)
[2022-06-09 05:57] VITALS: BP 132/86; PULSE 111; RESP 17; TEMP 36.9; O2SAT 95
--- NOTE | 2022-06-09 10:15 | W.PM.NPUPNS ---
Subjective NPU Subjective: Patient presents today continuing to be fairly focused on discharging sooner rather than later. He was much less irritable but still had moments where not being discharged brought a clear negative response. He seemed to be much more engaged and milieu and starting to be less internally preoccupied per staff reports and not causing issues. We discussed his addiction, recovery and concern that he is moving towards possible guardianship. Mental Status Exam MSE Comments: This is an obese, tall white male? in hospital scrubs with adequate grooming and eye contact. No abnormal movements except for mild psychomotor retardation. Cooperative with exam in mild distress. Speech was slightly decreased rate and volume. Mood described as okay, affect was congruent. Thought process appeared more organized. Thought content: patient denies suicidal or homicidal ideation, no delusions reported or but paranoid and persecutory delusions noted, and denies any auditory or visual hallucinations. Attention and concentration appeared intact and memory appeared unreliable, but none were formally tested. He is alert and oriented x3. Insight and judgment are impaired, but improving. Impulse control is improving. Vitals/I&O/Wt Last Vital Signs Temp 98.4 F 06/09/22 05:57 Pulse 111 H 06/09/22 05:57 Resp 17 06/09/22 05:57 BP 132/86 06/09/22 05:57 Pulse Ox 95 06/09/22 05:57 O2 Del Method 06/09/22 05:57 Data NPU : 05/29/22 12:45 05/29/22 12:45 A&P Assessment and plan (1) Schizoaffective disorder, unspecified: Qualifiers: Schizoaffective disorder type: unspecified Qualified Code(s): F25.9 - Schizoaffective disorder, unspecified (2) Acute psychosis: (3) Hallucinations: (4) Methamphetamine use disorder, severe: (5) Cannabis use disorder, severe, dependence: (6) Depression with suicidal ideation: (7) Anxiety: Plan This is a 52 year old white male with a long history of trauma and addiction with genetic loading for mental health and addiction issues with continuing mental health challenges and methamphetamine abuse who presents after getting in trouble for trespassing leading to his admission which he reports is unnecessary. Plan TO-15 minute med checks Continue medications per last discharge medications Encourage individual, group and milieu therapies. Encouraged him to explore sober living treatment after discharge at the high level of care to which he is willing to commit. 21-day hold granted. Begin to consider discharge. Involuntary Hold Information 96 Hour Hold: 96 Hour Involuntary Admission: Yes 96 Hour Hold Ending Date: 06/06/22 96 Hour Hold Ending Time: 00:01 Attestations NPU Medical Necessity Statement*: Inpatient hospitalization is medically necessary and the clinically appropriate intervention at this time. We will monitor medications and make changes as indicated. Likely length of stay 3-7 days. 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
[2022-06-09] MEDS: b-complex-vitamin c Tablet 1 EACH PO (10:55)
[2022-06-09] MEDS: methocarbamol 750 mg Tablet PO ×2 (10:55→18:32)
[2022-06-09] MEDS: divalproex ER 500 mg Tablet (24H) PO (10:56)
[2022-06-09] MEDS: naproxen 500 mg Tablet PO ×2 (10:56→18:32)
[2022-06-09] MEDS: losartan 50 mg Tablet 25 MG PO (10:56)
[2022-06-09] MEDS: gabapentin 300 mg Capsule 600 MG PO ×3 (10:57→20:34)
--- NOTE | 2022-06-09 13:05 | PC.NURSE ---
Patient walking hallways. Denies SI/HI. Patient is consistently talking with other people who are not there in the hallway and the dayroom. Some overheard conversations were calm, while during another he yelled, fuck you! directly at a wall where nobody was standing. Patient was successfully verbally redirected.
[2022-06-09 14:00] VITALS: BP 148/87; PULSE 89; RESP 20; TEMP 36.9; O2SAT 98
[2022-06-09 20:02] VITALS: BP 142/92; PULSE 101; RESP 18; TEMP 36.7; O2SAT 98
[2022-06-09] MEDS: divalproex ER 250 mg Tablet (24H) 750 MG PO (20:33)
[2022-06-09] MEDS: OLANZapine 10 mg TABLET 30 MG PO (20:34)
[2022-06-09] MEDS: quetiapine 25 mg Tablet 50 MG PO (20:34)
[2022-06-09] MEDS: trazodone 150 mg Tablet PO (20:34)
[2022-06-09] MEDS: diphenhydrAMINE 50 mg Capsule PO (22:04)
[2022-06-09] MEDS: haloperidol 5 mg Tablet PO (22:04)
[2022-06-10] MEDS: nicotine 4 mg lozenge MUCOUS MEM ×5 (03:14→12:23)
[2022-06-10] MEDS: ibuprofen 600 mg Tablet PO (05:19)
[2022-06-10 06:00] VITALS: BP 132/81; PULSE 93; RESP 17; TEMP 36.5; O2SAT 98
[2022-06-10] MEDS: losartan 50 mg Tablet 25 MG PO (08:11)
[2022-06-10] MEDS: naproxen 500 mg Tablet PO (08:11)
[2022-06-10] MEDS: b-complex-vitamin c Tablet 1 EACH PO (08:11)
[2022-06-10] MEDS: divalproex ER 500 mg Tablet (24H) PO (08:11)
[2022-06-10] MEDS: methocarbamol 750 mg Tablet PO (08:11)
[2022-06-10] MEDS: gabapentin 300 mg Capsule 600 MG PO (08:11)
[2022-06-10] MEDS: hyDROXYzine 25 mg Capsule 50 MG PO (10:33)
--- NOTE | 2022-06-10 13:10 | DCPLANNER ---
JORGE completed on 06/10/22 @ 1492. Pt was given a copy of rights and he stated he understood his writes.
[2022-06-10 14:00] VITALS: BP 132/95; PULSE 98; RESP 20; TEMP 37; O2SAT 96
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
[2022-06-10 14:34] VITALS: BP 132/81; PULSE 93; RESP 17; TEMP 36.5; O2SAT 98
== END 2022-06-10 14:52 | disposition home or self-care (01) | DRG 885 ==
LOC: ER 12:29 → NP 05-30 13:24
PROVIDERS: Admitting Provider Psychiatry & Neurology Psychiatry; Emergency Provider Emergency Medicine; PCP Nurse Practitioner; Visit Provider Psychiatry & Neurology Psychiatry
DX: F25.0 Schizoaffective disorder, bipolar type (principal); F15.20 Other stimulant dependence, uncomplicated; R45.851 Suicidal ideations; F12.20 Cannabis dependence, uncomplicated; F17.200 Nicotine dependence, unspecified, uncomplicated
CPT/HCPCS: 71045; 80053; 80306; 80307; 83690; 84439; 84443; 85025; 87426; 90471; 90686; 93005; 96372; 97150; 97165; 99285; J1630; Q0163

== ENCOUNTER → 2022-10-11 16:24 | Outpatient (BNVA) | payer MEDICAID, SELFPAY | PROVIDERS: PCP Nurse Practitioner; Visit Provider Nurse Practitioner | DX: F98.8 Other specified behavioral and emotional disorders with onset usually occurring in childhood and adolescence (principal); F25.9 Schizoaffective disorder, unspecified; G54.2 Cervical root disorders, not elsewhere classified; I10 Essential (primary) hypertension; F41.9 Anxiety disorder, unspecified; N18.2 Chronic kidney disease, stage 2 (mild); M79.18 Myalgia, other site | CPT/HCPCS: 80053; 81000; 85025 ==

== ENCOUNTER 2022-10-23 23:29 | Emergency (ER) | payer MEDICAID, SELFPAY ==
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
--- NOTE | 2022-10-23 23:32 | CTR_ITS ---
PROCEDURE INFORMATION: Exam: CT Head Without Contrast Exam date and time: 10/24/2022 1:06 AM Age: 52 years old Clinical indication: Altered mental status/memory loss; Additional info: AMS TECHNIQUE: Imaging protocol: Computed tomography of the head without contrast. Radiation optimization: All CT scans at this facility use at least one of these dose optimization techniques: automated exposure control; mA and/or kV adjustment per patient size (includes targeted exams where dose is matched to clinical indication); or iterative reconstruction. REPORTING DATA: Count of CT and Cardiac NM exams in prior 12 months: This patient has received 2 known CTs and 0 known cardiac nuclear medicine studies in the 12 months prior to the current study. COMPARISON: CT head wo con* [id number] 03/29/2022 3:17 AM RADIATION DOSE METRICS: Total DLP (mGy-cm): 1184.3 FINDINGS: Brain: Normal. No hemorrhage. Unremarkable white matter. No mass effect. Cerebral ventricles: No ventriculomegaly. Paranasal sinuses: Visualized sinuses are unremarkable. No fluid levels. Mastoid air cells: Visualized mastoid air cells are well aerated. Bones/joints: Unremarkable. No acute fracture. Soft tissues: Unremarkable. CT/CT head wo con* [id number] IMPRESSION: No acute intracranial abnormality.
[2022-10-23 23:34] VITALS: BMI 30.3
[2022-10-23 23:37] VITALS: BP 142/112; PULSE 89; RESP 19; TEMP 36.1; O2SAT 92
[2022-10-23] MEDS: haloperidol inj 5 mg/mL INJ 1 mL IVP (23:51)
[2022-10-23] MEDS: LORazepam 2 mg/mL INJ 1 mL IVP (23:51)
[2022-10-24] VITALS: BP 103/71; PULSE 85; RESP 15; O2SAT 96
[2022-10-24 00:15] VITALS: BP 103/66; PULSE 81; RESP 16; O2SAT 95
--- NOTE | 2022-10-24 00:15 | W.ED.AMS ---
HPI - Altered Mental Status General: Chief Complaint: Altered Mental Status Stated Complaint: drug use Time Seen by Provider: 10/23/22 23:31 Source: EMS History of Present Illness: 52-year-old male brought in by EMS. Evidently law enforcement was on the scene, and the patient was significantly agitated. The assumption was, because of prior history, that he was experiencing agitated delirium. He was found to be in cuffs on EMS arrival. He was given 500 mg of intramuscular ketamine, and arrives here dazed but awake. His vital signs been stable. MD complaint: altered mental status and intoxication Onset (ago): unknown Severity: moderate Consistency of symptoms: Waxing and Waning Associated symptoms: Reports delusions Review of Systems General: Reports: ROS unobtainable due to mental status PFSH ED PFSH: Medical History Anxiety Bipolar depression Bipolar disorder Cervical plexus neuropathy CKD (chronic kidney disease) stage 2, GFR 60-89 ml/min Myofascial pain syndrome Schizoaffective disorder, unspecified Surgical History History of knee surgery left Family History Denies family history of CAD (coronary artery disease) Family history of premature coronary artery disease Social History Smoking and tobacco status: current every day smoker Second hand smoke exposure: Yes Smoking risk assessment/counseling performed?: Yes Alcohol intake: unknown Desire information about alcohol rehabilitation?: No Counseling given: No Desire information about substance/drug rehabilitation?: No Counseling given: No Adopted: No Caregiver/support person: No Lives independently: Yes Household members: friend(s) Marital status: Number of children: 4 service: No Current occupational status: unemployed Pets and animals: No Current gender identity: Male Physical Exam Const: GENERAL APPEARANCE: disheveled and lethargic; not ill appearing NUTRITIONAL APPEARANCE: overweight ORIENTATION/CONSCIOUSNESS: Yes lethargic HENMT: COMMON NORMALS: normocephalic, atraumatic and Normal external nose present HEAD & SCALP: normocephalic and atraumatic FACE & SINUS: normal facial exam NOSE: Normal external nose present and Normal nares present Eye: COMMON NORMALS: Equal, round and reactive pupils present and EOMs intact bilaterally PUPIL: Yes Equal, round and reactive pupils present Neck/C-Spine: GENERAL: Yes trachea midline Chest: CHEST: Yes Symmetrical chest wall rise Resp: COMMON NORMALS: normal respiratory effort and clear to auscultation bilaterally AUSCULTATION: clear to auscultation bilaterally Cardio: COMMON NORMALS: regular rate and regular rhythm RATE: regular rate RHYTHM: regular rhythm GI: COMMON NORMALS: Normal to inspection, nondistended, normoactive bowel sounds present Extremity: COMMON NORMALS: no pedal edema Neuro: HALIAM COMA SCALE: document GCS findings [place] coma scale eye opening: To sound Hal[place] coma scale verbal response: Words [place] coma scale motor response: Localising [place] coma scale total score: 11 SENSORIUM/ORIENTATION: Yes lethargic Psych: SPEECH: Yes slurred THOUGHT CONTENT: Yes delusions Course Vital Signs: Vital signs: Vital Signs Temperature 97.0 F L 10/23/22 23:37 Pulse Rate 65 10/24/22 06:15 Respiratory Rate 14 10/24/22 06:15 Blood Pressure 118/89 10/24/22 06:15 Pulse Oximetry 99 10/24/22 06:15 Oxygen Delivery Me thod 10/23/22 23:37 MDM - Altered Mental Status Medical Decision Making He is dazed on arrival. He is still somewhat agitated, and fidgeting. He is placed in soft restraints, especially due to his history of violent behavior prior to EMS arrival. He was given IV Haldol and Ativan after IV was established. Currently his heart rate is 80, blood pressure 103/66, saturations 93% on a couple liters.His chest x-ray shows no acute findings. CT is pending. 4:49. Patient is still quite sleepy, but arousable to voice. He denies suicidal or homicidal ideations at this point. He would like to go home. Medically he is quite stable. Head CT is negative. Chest x-ray is negative. White blood cell count is 15 and hemoglobin 14 BMP and liver enzymes are not remarkable. His troponin is 11. His alcohol level is not detectable. His CK is only 430. He will be allowed discharge when a bit more awake. Lab Data 10/23/22 23:53 10/23/22 23:53 Radiology Impressions Chest X-Ray 10/23/22 23:32 IMPRESSION: No acute findings. Head CT 10/23/22 23:32 IMPRESSION: No acute intracranial abnormality. Laboratory Results WBC 15.3 10^3/uL (4.0-10.0) H 10/23/22 23:53 RBC 5.22 10^6/uL (4.1-5.3) 10/23/22 23:53 Hgb 14.2 g/dL (11.7-16.6) 10/23/22 23:53 Hct 43.7 % (42.0-52.0) 10/23/22 23:53 MCV 83.7 fl (80-94) 10/23/22 23:53 MCH 27.2 pg (28.0-34.0) L 10/23/22 23:53 MCHC 32.5 g/dL (30.0-36.0) 10/23/22 23:53 RDW 14.8 % (12.1-15.1) 10/23/22 23:53 Plt Count 334 10^3/cmm (130-400) 10/23/22 23:53 MPV 10.3 fL (7.4-10.4) 10/23/22 23:53 Neut % (Auto) 78.5 % 10/23/22 23:53 Lymph % (Auto) 13.3 % 10/23/22 23:53 Wayne % (Auto) 6.8 % 10/23/22 23:53 Eos % (Auto) 0.6 % 10/23/22 23:53 Baso % (Auto) 0.3 % 10/23/22 23:53 Neut # (Auto) 12.06 10^3/uL (1.8-7.7) H 10/23/22 23:53 Lymph # (Auto) 2.0 10^3/uL (0.8-4.8) 10/23/22 23:53 Wayne # (Auto) 1.0 10^3/uL (0.2-0.9) H 10/23/22 23:53 Eos # (Auto) 0.1 10^3/uL (0.0-0.8) 10/23/22 23:53 Baso # (Auto) 0.0 10^3/uL (0.0-0.1) 10/23/22 23:53 Nucleated RBC % (auto) 0 % 10/23/22 23:53 Nucleated RBCs # 0.0 /100WBC 10/23/22 23:53 PT 13.10 SECONDS (12.1-14.9) 10/23/22 23:53 INR 0.97 (0.8-1.2) 10/23/22 23:53 Sodium 138 mmol/L (136-145) 10/23/22 23:53 Potassium 4.5 mmol/L (3.5-5.1) 10/23/22 23:53 Chloride 97 mmol/L (98-107) L 10/23/22 23:53 Carbon Dioxide 23 mmol/L (22-29) 10/23/22 23:53 Anion Gap 22.5 (5-19) H 10/23/22 23:53 BUN 31 mg/dL (6-20) H 10/23/22 23:53 Creatinine 1.2 mg/dL (0.7-1.2) 10/23/22 23:53 GFR Calculation 63.6 mL/min (90-130) L 10/23/22 23:53 Glucose 114 mg/dL (65-115) 10/23/22 23:53 Calculated Osmolality 293 mOsm/kg (285-295) 10/23/22 23:53 Calcium 9.8 mg/dL (8.5-10.5) 10/23/22 23:53 Total Bilirubin 0.4 mg/dL (0.15-1.2) 10/23/22 23:53 AST 37 U/L (0-40) 10/23/22 23:53 ALT 25 U/L (0-41) 10/23/22 23:53 Alkaline Phosphatase 84 U/L (40-130) 10/23/22 23:53 Creatine Kinase 431 U/L (39-308) H* 10/23/22 23:53 Troponin T Baseline 11 ng/L (0-15) 10/23/22 23:53 Total Protein 8.6 g/dL (6.6-8.7) 10/23/22 23:53 Albumin 4.5 g/dL (3.5-5.2) 10/23/22 23:53 Globulin 4.1 g/dL (1.3-4.6) 10/23/22 23:53 Salicylates < 0.3 mg/dL (3-10) L 10/23/22 23:53 Acetaminophen < 5.0 ug/mL (10-30) L 10/23/22 23:53 Valproic Acid 30.8 ug/mL (50-100) L 10/23/22 23:53 Ethyl Alcohol < 10 mg/dL (0-10) 10/23/22 23:53 Discharge Plan Discharge Patient Disposition: Home Clinical Impression: Methamphetamine use disorder, severe, Altered mental status, Delirium due to general medical condition Condition: Stable Prescriptions: No Action naproxen 500 mg tablet 500 mg PO BID 30 Days Qty: 60 2RF Hold Instructions: Doctor's Order atomoxetine [Strattera] 40 mg capsule 40 mg PO QAM Qty: 30 2RF divalproex [Depakote ER] 500 mg tablet extended release 24 hr 500 mg PO DAILY 30 Days Qty: 30 2RF divalproex [Depakote ER] 250 mg tablet extended release 24 hr 750 mg PO BEDTIME 30 Days Qty: 90 2RF gabapentin 600 mg tablet 600 mg PO TID 30 Days Qty: 90 2RF hydroxyzine pamoate 50 mg capsule 50 mg PO Q6H PRN (Reason: Anxiety) 30 Days Qty: 90 2RF methocarbamol 750 mg tablet 750 mg PO BID Qty: 60 2RF quetiapine 50 mg tablet 50 mg PO BEDTIME 30 Days Qty: 30 2RF trazodone 150 mg tablet 150 mg PO BEDTIME 30 Days Qty: 30 2RF valsartan [Diovan] 80 mg tablet 80 mg PO DAILY Qty: 30 2RF Hold Instructions: Resume on 02/13/22. olanzapine 10 mg tablet 10 mg PO BID 30 Days Qty: 60 2RF B-complex with vitamin C Tablet 1 tab PO DAILY Qty: 30 2RF Discharge Orders: Discharge ED (Routine); Ordered 10/24/22 Ordered By: Jose Neri Referrals: Miryam Barth FNP-C [Primary Care Provider] - 1-3 days Patient Instructions: Methamphetamine Use Disorder (ED), Opioid Safety, Pain Management Activity Restrictions/Additional Instructions: Abstain from the use of illicit substances. Return for any thoughts or wishes to harm yourself or anyone else, or any other concerning symptoms. See your doctor this week. Coding Level of Care Code ED Electrical Technician for Rosie Varner
[2022-10-24 00:16] LABS: Basophils % 0.3 %; Eosinophils # 0.1 10^3/uL (0.0-0.8); Eosinophils % 0.6 %; Hematocrit 43.7 % (42.0-52.0); Hemoglobin 14.2 g/dL (11.7-16.6); Lymphocytes % 13.3 %; Mean Corpuscular HGB Conc 32.5 g/dL (30.0-36.0); Mean Corpuscular Hemoglobin 27.2 pg (28.0-34.0); Mean Corpuscular Volume 83.7 fl (80-94); Mean Platelet Volume 10.3 fL (7.4-10.4); Monocytes % 6.8 %; Neutrophils # 12.06 10^3/uL (1.8-7.7); Neutrophils % 78.5 %; Nucleated Red Blood Cells % 0 %; Platelet Count 334 10^3/cmm (130-400); Red Blood Count 5.22 10^6/uL (4.1-5.3); Red Cell Distribution Width 14.8 % (12.1-15.1); White Blood Count 15.3 10^3/uL (4.0-10.0)
[2022-10-24] MEDS: sodium chloride 0.9% 1,000 ML 200 ML IV (00:28)
[2022-10-24 00:30] VITALS: BP 87/67; PULSE 79; RESP 15; O2SAT 96
[2022-10-24 00:45] VITALS: BP 107/70; PULSE 74; RESP 15; O2SAT 94
[2022-10-24 00:47] LABS: INR 0.97 (0.8-1.2)
[2022-10-24 00:50] LABS: Alanine Aminotransferase 25 U/L (0-41); Albumin Level 4.5 g/dL (3.5-5.2); Alkaline Phosphatase 84 U/L (40-130); Blood Urea Nitrogen 31 mg/dL (6-20); Calcium 9.8 mg/dL (8.5-10.5); Carbon Dioxide 23 mmol/L (22-29); Chloride 97 mmol/L (98-107); Globulin 4.1 g/dL (1.3-4.6); Glomerular Filtration Rate 63.6 mL/min (90-130); Glucose 114 mg/dL (65-115); Osmolality Calculated 293 mOsm/kg (285-295); Sodium 138 mmol/L (136-145); Total Bilirubin 0.4 mg/dL (0.15-1.2); Total Protein 8.6 g/dL (6.6-8.7); Troponin(5th) Baseline 11 ng/L (0-15)
[2022-10-24 00:51] LABS: Valproic Acid Level 30.8 ug/mL (50-100)
[2022-10-24 01:00] VITALS: BP 122/67; PULSE 71; RESP 16; O2SAT 97
[2022-10-24 01:03] LABS: Acetaminophen < 5.0 ug/mL (10-30); Alcohol Level < 10 mg/dL (0-10); Anion Gap 22.5 (5-19); Salicylate < 0.3 mg/dL (3-10)
[2022-10-24 01:04] LABS: Aspartate Amino Transferase 37 U/L (0-40); Creatine Phosphokinase 431 U/L (39-308); Potassium 4.5 mmol/L (3.5-5.1)
[2022-10-24 06:15] VITALS: BP 118/89; PULSE 65; RESP 14; O2SAT 99
== END 2022-10-24 11:05 | disposition home or self-care (01) ==
PROVIDERS: Emergency Provider Emergency Medicine; PCP Nurse Practitioner
DX: F05 Delirium due to known physiological condition (principal); F15.90 Other stimulant use, unspecified, uncomplicated; F17.210 Nicotine dependence, cigarettes, uncomplicated; N18.2 Chronic kidney disease, stage 2 (mild)
CPT/HCPCS: 70450; 71045; 80053; 80164; 80307; 82550; 84484; 85025; 85610; 96361; 96374; 96375; 99285; J1630; J2060; J7030

== ENCOUNTER 2023-08-10 17:22 | Emergency (ER) | payer MEDICAID, SELFPAY ==
[2023-08-10 17:23] VITALS: BMI 26.4
--- NOTE | 2023-08-10 17:23 | W.ED.FALL ---
HPI - Fall General: Chief Complaint: Head Injury Stated Complaint: fall, hit face Time Seen by Provider: 08/10/23 17:23 History of Present Illness: 53-year-old gentleman comes in today for complaints of injury secondary to a fall. Patient was walking down a hill side and lost his balance causing the fall and rolled down the side of the hill. Patient has some abrasions to the left side of his face, a injury to his left hand with some possible dislocation of the fifth finger, abrasions to bilateral knees, and an abrasion to the left shoulder. Patient is alert and oriented. Patient reports taking some marijuana Gummies, patient also takes routine medications for psychiatric disorder and chronic back pain. Patient was recently released from longterm he reports. Associated symptoms-after fall: Denies headache(s) Review of Systems General: Reports: 10 or more systems reviewed and unremarkable except in HPI and below Musc: Reports: extremity pain (Left hand injury) Skin/Breast: Reports: new lesions (Multiple abrasions) Neuro: Denies: headache(s) PFSH ED PFSH: Medical History Anxiety Bipolar depression Bipolar disorder Cervical plexus neuropathy CKD (chronic kidney disease) stage 2, GFR 60-89 ml/min Myofascial pain syndrome Schizoaffective disorder, unspecified Surgical History History of knee surgery left Family History Denies family history of CAD (coronary artery disease) Family history of premature coronary artery disease Social History Smoking and tobacco/nicotine status: current every day tobacco/nicotine user Second hand smoke exposure: Yes Alcohol intake: unknown Substance/Drug Use: current Adopted: No Caregiver/support person: No Lives independently: Yes Household members: friend(s) Marital status: Number of children: 4 service: No Current occupational status: unemployed Pets and animals: No Do you think of yourself as: Straight/Heterosexual Current gender identity: Male Physical Exam Const: COMMON NORMALS: alert HENMT: COMMON NORMALS: atraumatic HEAD & SCALP: atraumatic FACE & SINUS: abrasion (Left facial cheek and periorbital region) NOSE: no Epistaxis present MOUTH: moist mucous membranes abnormal Neck/C-Spine: COMMON NORMALS: full ROM CERVICAL SPINE: No Cervical spine tenderness Chest: COMMONS NORMALS: normal palpation of entire chest wall Resp: COMMON NORMALS: normal respiratory effort and clear to auscultation bilaterally AUSCULTATION: clear to auscultation bilaterally Cardio: COMMON NORMALS: regular rate and regular rhythm RATE: regular rate RHYTHM: regular rhythm GI: COMMON NORMALS: Soft to palpation and non-tender PALPATION: Yes Soft to palpation : COMMON NORMALS: Yes no CVA tenderness BLADDER/KIDNEY EXAM: Yes no CVA tenderness Back/Pelvis: COMMON NORMALS: no CVA tenderness and thoracic and lumbar spine normal to inspection Extremity: NARRATIVE EXTREMITY EXAM: Abrasions to bilateral knees, abrasion to the right shoulder, normal range of motion. Neuro: SENSORIUM/ORIENTATION: Yes alert Skin: TRAUMA: abrasion (Multiple abrasions, bilateral knees, face, left shoulder) Procedures Laceration Laceration 1: Side (If applicable): left Size (cm): 3 Description: irregular Depth: simple, single layer Local Anesthetic: lidocaine 1% and with epi Pre-repair: wound explored and irrigated extensively Skin layer closed with: vicryl Size (cm): 4-0 Number of sutures: 3 Technique: simple, interrupted (2) and horizontal mattress (1) Course Vital Signs: Vital signs: Vital Signs Temperature 98.7 F 08/10/23 17:26 Pulse Rate 108 H 08/10/23 18:38 Respiratory Rate 19 H 08/10/23 18:38 Blood Pressure 155/108 08/10/23 18:38 Pulse Oximetry 98 08/10/23 18:38 Oxygen Delivery Me thod Room Air 08/10/23 18:38 MDM - Fall Medical Decision Making Patient comes in for evaluation of injury sustained during a fall while walking down the [place] side just prior to arrival. Patient denies any loss of consciousness. Patient has abrasions to the left face, bilateral knees, and left shoulder. Patient has deformity to the fifth digit left hand. Patient has good range of motion of other extremities. No spinal tenderness is noted. No obvious scalp injury is noted. Differential diagnosis includes not limited to intracranial bleed, skull fracture, fracture of the hand, multiple abrasions. Laceration was repaired with Vicryl to approximate the wounds. X-ray of the hand noted a proximal phalanx fracture with mild displacement to the fifth digit and no displacement to the fourth digit. Patient was placed in a boxer splint and recommended for follow-up to orthopedist. CT of the head and cervical spine were negative for any acute injury. Reviewed exam with patient with recommendations for follow-up and return to the ER. Patient reported understanding. Lab Data Radiology Impressions Cervical Spine CT 08/10/23 17:28 IMPRESSION: 1. Degenerative changes stable compared with 01/27/2022. 2. No acute fracture. Hand X-Ray 08/10/23 17:28 IMPRESSION: Proximal phalangeal fractures of the ring and little fingers. Head CT 08/10/23 17:28 IMPRESSION: 1. No acute intracranial finding. 2. Left frontal scalp laceration. All radiology interpretation(s) finalized by discharge Discharge Plan Discharge Patient Disposition: Home Clinical Impression: Fall Qualifiers: Encounter type: initial encounter Qualified Code(s): W19.XXXA - Unspecified fall, initial encounter Head injury Qualifiers: Encounter type: initial encounter Qualified Code(s): S09.90XA - Unspecified injury of head, initial encounter Facial laceration Qualifiers: Encounter type: initial encounter Qualified Code(s): S01.81XA - Laceration without foreign body of other part of head, initial encounter Finger fracture, left Qualifiers: Encounter type: initial encounter Finger: little finger Fracture type: closed Phalanx: proximal Fracture alignment: displaced Qualified Code(s): S62.617A - Displaced fracture of proximal phalanx of left little finger, initial encounter for closed fracture Condition: Stable Prescriptions: No Action atomoxetine [Strattera] 40 mg capsule 40 mg PO QAM Qty: 30 2RF B-complex with vitamin C Tablet 1 tab PO DAILY Qty: 30 2RF divalproex [Depakote ER] 500 mg tablet extended release 24 hr 500 mg PO DAILY 30 Days Qty: 30 2RF divalproex [Depakote ER] 250 mg tablet extended release 24 hr 750 mg PO BEDTIME 30 Days Qty: 90 2RF gabapentin 600 mg tablet 600 mg PO TID 30 Days Qty: 90 2RF hydroxyzine pamoate 50 mg capsule 50 mg PO Q6H PRN (Reason: Anxiety) 30 Days Qty: 90 2RF methocarbamol 750 mg tablet 750 mg PO BID Qty: 60 2RF olanzapine 10 mg tablet 10 mg PO BID 30 Days Qty: 60 2RF quetiapine 50 mg tablet 50 mg PO BEDTIME 30 Days Qty: 30 2RF trazodone 150 mg tablet 150 mg PO BEDTIME 30 Days Qty: 30 2RF valsartan [Diovan] 80 mg tablet 80 mg PO DAILY Qty: 30 2RF Hold Instructions: Resume on 02/13/22. Discharge Orders: Discharge ED (Routine); Ordered 08/10/23 Ordered By: Rodrigo Sheriff Referrals: Miryam Barth, DRUM DRIER OPERATOR-C [Primary Care Provider] - Discharge Diet: Usual diet Discharge Activity: Increase activity as tolerated Patient Instructions: Care For Your Stitches (ED), Splint Care (ED) Activity Restrictions/Additional Instructions: Keep wound clean and dry. Do not get wounds wet for at least 48 hours. After that you can gently clean the wounds with mild soap and water thoroughly dry and apply antibiotic ointment as you wish. Use acetaminophen and ibuprofen for pain. Keep splint clean and dry. Follow-up with primary care in 1 week. Return to ED for new concerns. Case management will contact you regarding follow-up with orthopedic surgeon for further evaluation of fractures. Coding Level of Care Code ED Linting Machine Operator for Rosie Varner
[2023-08-10 17:26] VITALS: BP 154/106; PULSE 113; RESP 16; TEMP 37.1; O2SAT 96
--- NOTE | 2023-08-10 17:28 | XRR_ITS ---
PROCEDURE INFORMATION: Exam: XR Left Hand Exam date and time: 08/10/2023 6:09 PM Age: 53 years old Clinical indication: Injury or trauma; Fall; Fracture, traumatic injury; Closed fracture; Metacarpal; Left; Fifth TECHNIQUE: Imaging protocol: Radiologic exam of the left hand. Views: 3 or more views. COMPARISON: No relevant prior studies available. FINDINGS: Bones/joints: There is a comminuted mildly displaced fracture through the base of the proximal phalanx of the 5th finger. No definite intra-articular involvement. There is also a nondisplaced fracture through the base of the proximal phalanx of the 4th finger with no intra-articular involvement. The hand is otherwise normal. Soft tissues: Normal. XR/XR hand LT min 3V* [id number] IMPRESSION: Proximal phalangeal fractures of the ring and little fingers.
--- NOTE | 2023-08-10 17:28 | CTR_ITS ---
PROCEDURE INFORMATION: Exam: CT Head Without Contrast Exam date and time: 08/10/2023 5:34 PM Age: 53 years old Clinical indication: Injury or trauma; Fall; Blunt trauma (contusions or hematomas); Additional info: Fall injury TECHNIQUE: Imaging protocol: Computed tomography of the head without contrast. Radiation optimization: All CT scans at this facility use at least one of these dose optimization techniques: automated exposure control; mA and/or kV adjustment per patient size (includes targeted exams where dose is matched to clinical indication); or iterative reconstruction. REPORTING DATA: Count of CT and Cardiac NM exams in prior 12 months: This patient has received [address] and 0 known cardiac nuclear medicine studies in the 12 months prior to the current study. COMPARISON: CT head wo con* [id number] 10/24/2022 1:06 AM RADIATION DOSE METRICS: Total DLP (mGy-cm): 1161 FINDINGS: Brain: There is mild cortical atrophy. Low-density changes in the white matter are consistent with nonspecific small vessel chronic ischemic change. There is no intracranial mass, hemorrhage or edema. Cerebral ventricles: No ventriculomegaly. Paranasal sinuses: Visualized sinuses are unremarkable. No fluid levels. Mastoid air cells: Visualized mastoid air cells are well aerated. Bones/joints: Unremarkable. No acute fracture. Soft tissues: There is some mild soft tissue stranding in the frontal tissues and left brow which may represent mild contusion. There is focal bubble of gas in the left brow which is likely related to small focal laceration. Please correlate clinically. CT/CT head wo con* [id number] IMPRESSION: 1. No acute intracranial finding. 2. Left frontal scalp laceration.
--- NOTE | 2023-08-10 17:28 | CTR_ITS ---
PROCEDURE INFORMATION: Exam: CT Cervical Spine Without Contrast Exam date and time: 08/10/2023 5:34 PM Age: 53 years old Clinical indication: Injury or trauma; Fall; Blunt trauma; Additional info: Fall injury TECHNIQUE: Imaging protocol: Computed tomography of the cervical spine without contrast. Radiation optimization: All CT scans at this facility use at least one of these dose optimization techniques: automated exposure control; mA and/or kV adjustment per patient size (includes targeted exams where dose is matched to clinical indication); or iterative reconstruction. REPORTING DATA: Count of CT and Cardiac NM exams in prior 12 months: This patient has received [address] and 0 known cardiac nuclear medicine studies in the 12 months prior to the current study. COMPARISON: CT cervical spin wo con* [id number] 03/29/2022 3:20 AM RADIATION DOSE METRICS: Total DLP (mGy-cm): 205 FINDINGS: Bones/joints: There is no evidence of fracture or dislocation. There is decreased height of the C5-C6 disc with degeneration of the endplates and mild uncovertebral hypertrophy not significantly changed. There are degenerative changes in facet joints, on the left at C3-C4 and on the right at C3-C4, C4-C5 and C5-C6. There is mild foraminal narrowing at multiple levels. Lungs: Lung apices are normal. Soft tissues: Unremarkable. CT/CT cervical spin wo con* [id number] IMPRESSION: 1. Degenerative changes stable compared with 01/27/2022. 2. No acute fracture.
[2023-08-10 18:38] VITALS: BP 155/108; PULSE 108; RESP 19; O2SAT 98
[2023-08-10] MEDS: HYDROcodone-acetaminophen 5-325 mg Tablet 1 TAB PO (18:42)
--- NOTE | 2023-08-10 18:43 | PC.NURSE ---
pt verified and given 5mg/325 hydrocodone as scanner was not working.
[2023-08-10 19:16] VITALS: BP 180/100; PULSE 111; RESP 18; O2SAT 98
--- NOTE | 2023-08-13 23:40 | DCPLANNER ---
Message sennt to Ortho for a follow appointment on a fx digit.
== END 2023-08-10 19:21 | disposition home or self-care (01) ==
PROVIDERS: Emergency Provider Nurse Practitioner Family; PCP Nurse Practitioner
DX: S01.81XA Laceration without foreign body of other part of head, initial encounter (principal); S62.617A Displaced fracture of proximal phalanx of left little finger, initial encounter for closed fracture; S62.615A Displaced fracture of proximal phalanx of left ring finger, initial encounter for closed fracture; S80.212A Abrasion, left knee, initial encounter; S80.211A Abrasion, right knee, initial encounter; S80.812A Abrasion, left lower leg, initial encounter; S00.81XA Abrasion of other part of head, initial encounter; N18.2 Chronic kidney disease, stage 2 (mild); Z72.0 Tobacco use; W17.81XA Fall down embankment (hill), initial encounter
CPT/HCPCS: 12013; 70450; 72125; 73130; 99284

== ENCOUNTER → 2023-10-05 15:22 | Outpatient (BNVA) | payer SELFPAY | PROVIDERS: PCP Nurse Practitioner; Visit Provider Nurse Practitioner | DX: S62.92XA Unspecified fracture of left hand, initial encounter for closed fracture (principal); X58.XXXA Exposure to other specified factors, initial encounter | CPT/HCPCS: 73130 ==

== ENCOUNTER 2023-11-16 13:48 | Inpatient (IN) | payer MEDICARE, SELFPAY ==
[2023-11-16 13:52] VITALS: BP 180/105; PULSE 86; RESP 18; TEMP 36.5; O2SAT 99
--- NOTE | 2023-11-16 14:02 | ED.C_ITS ---
HPI - Psych 2 General: Chief Complaint: Psychiatric Symptoms Stated Complaint: MHE Time Seen by Provider: 11/16/23 13:50 Source: patient Mode of arrival: ambulatory Limitations: no limitations History of Present Illness: 53-year-old male has a history of schizo affective disorder states that he has had increasing agitation he had homicidal thoughts towards another individual states he feels like he needs to be admitted to the [facility] to get some help. He denies any suicidality. Associated symptoms: Reports homicidal ideation; Deny depression or suicidal ideation Review of Systems 2 Const: Denies: fever(s), chills, body aches or change in appetite ENMT: Denies: throat pain or dental pain Card: Denies: chest pain Resp: Denies: dyspnea GI: Denies: abdominal pain, nausea, vomiting or diarrhea Musc: Denies: neck pain or back pain Skin/Breast: Denies: rash Neuro: Denies: headache(s) Psych: Reports: homicidal ideation; Denies: depression or suicidal ideation PFSH ED 2 PFSH: Medical History CKD (chronic kidney disease) stage 2, GFR 60-89 ml/min Bipolar disorder Myofascial pain syndrome Cervical plexus neuropathy Anxiety Bipolar depression Schizoaffective disorder, unspecified Surgical History History of knee surgery left Family History Denies family history of CAD (coronary artery disease) Family history of premature coronary artery disease Social History Smoking and tobacco/nicotine status: current every day tobacco/nicotine user Second hand smoke exposure: Yes Alcohol intake: unknown Substance/Drug Use: current Adopted: No Caregiver/support person: No Lives independently: Yes Household members: friend(s) Marital status: Number of children: 4 service: No Current occupational status: unemployed Pets and animals: No Do you think of yourself as: Straight/Heterosexual Current gender identity: Male Physical Exam 2 Const: COMMON NORMALS: no acute distress, patient oriented x3 and healthy appearing HENMT: COMMON NORMALS: normocephalic and atraumatic HEAD & SCALP: n ormocephalic and atraumatic Neck/C-Spine: COMMON NORMALS: full ROM and supple Chest: COMMONS NORMALS: normal inspection of the chest and normal palpation of entire chest wall Resp: COMMON NORMALS: normal respiratory effort, No retractions, No use of accessory muscles and clear to auscultation bilaterally AUSCULTATION: clear to auscultation bilaterally Cardio: COMMON NORMALS: regular rate, regular rhythm and No murmurs present (Cardio) RATE: regular rate RHYTHM: regular rhythm Extremity: COMMON NORMALS: normal to inspection and full ROM Neuro: COMMON NORMALS: patient oriented x3, moves all extremities and no focal motor deficits Psych: COMMON NORMALS: mental status grossly normal, Normal thought process present and cooperative THOUGHT PROCESS: Normal thought process present T HOUGHT CONTENT: Yes Homicidality present Skin: COMMON NORMALS: no rashes or lesions noted and no wounds GENERAL SKIN EXAM: no rashes or lesions noted Course 2 Vital Signs: Vital signs: Vital Signs Temperature 97.7 F 11/16/23 13:52 Pulse Rate 60 11/16/23 15:14 Respiratory Rate 18 11/16/23 13:52 Blood Pressure 168/105 11/16/23 15:14 Pulse Oximetry 94 11/16/23 15:14 Oxygen Delivery Me thod Room Air 11/16/23 13:52 MDM - Psych Medical Decision Making Patient presents here with homicidal ideations he is medically cleared he voluntarily wants admitted I spoke to psychiatrist and will admit at this time. Medical Records I reviewed the patient's medical records. Lab Data I reviewed the patient's lab results. 11/16/23 14:23 11/16/23 14:23 Laboratory Results WBC 7.05 10^3/uL (3.29-11.43) 11/16/23 14:23 RBC 4.67 10^6/uL (3.85-5.65) 11/16/23 14:23 Hgb 13.00 g/dL (11.27-16.99) 11/16/23 14:23 Hct 39.1 % (37-53) 11/16/23 14:23 MCV 83.7 fl (82-101) 11/16/23 14:23 MCH 27.8 pg (27-33) 11/16/23 14:23 MCHC 33.2 g/dL (30-55) 11/16/23 14:23 RDW 14.0 % (12.1-15.1) 11/16/23 14:23 Plt Count 289 10^3/cmm (157-399) 11/16/23 14:23 MPV 9.9 fL (7.4-10.4) 11/16/23 14:23 Neut % (Auto) 57.8 % 11/16/23 14:23 Lymph % (Auto) 32.9 % 11/16/23 14:23 [place] % (Auto) 6.0 % 11/16/23 14:23 Eos % (Auto) 2.4 % 11/16/23 14:23 Baso % (Auto) 0.6 % 11/16/23 14:23 Neut # (Auto) 4.08 10^3/uL (1.8-7.7) 11/16/23 14:23 Lymph # (Auto) 2.3 10^3/uL (0.8-4.8) 11/16/23 14:23 [place] # (Auto) 0.4 10^3/uL (0.2-0.9) 11/16/23 14:23 Eos # (Auto) 0.2 10^3/uL (0.0-0.8) 11/16/23 14:23 Baso # (Auto) 0.0 10^3/uL (0.0-0.1) 11/16/23 14:23 Nucleated RBC % (auto) 0 % 11/16/23 14:23 Nucleated RBCs # 0.0 /100WBC 11/16/23 14:23 Sodium 135 mmol/L (136-145) L 11/16/23 14:23 Potassium 3.8 mmol/L (3.5-5.1) 11/16/23 14:23 Chloride 100 mmol/L (98-107) 11/16/23 14:23 Carbon Dioxide 25 mmol/L (22-29) 11/16/23 14:23 Anion Gap 13.8 (5-19) 11/16/23 14:23 BUN 14 mg/dL (6-20) 11/16/23 14:23 Creatinine 1.5 mg/dL (0.7-1.2) H 11/16/23 14:23 GFR Calculation 49.0 mL/min (90-130) L 11/16/23 14:23 Glucose 111 mg/dL (65-115) 11/16/23 14:23 Calculated Osmolality 281 mOsm/kg (285-295) L 11/16/23 14:23 Calcium 9.1 mg/dL (8.5-10.5) 11/16/23 14:23 Total Bilirubin 0.2 mg/dL (0.15-1.2) 11/16/23 14:23 AST 66 U/L (0-40) H 11/16/23 14:23 ALT 25 U/L (0-41) 11/16/23 14:23 Alkaline Phosphatase 105 U/L (40-130) 11/16/23 14:23 Total Protein 8.2 g/dL (6.6-8.7) 11/16/23 14:23 Albumin 4.5 g/dL (3.5-5.2) 11/16/23 14:23 Globulin 3.7 g/dL (1.3-4.6) 11/16/23 14:23 Salicylates 1.8 mg/dL (3-10) L 11/16/23 14:23 Urine Opiates Screen Negative ng/mL (Negative) 11/16/23 14:04 Acetaminophen < 5.0 ug/mL (10-30) L 11/16/23 14:23 Ur Barbiturates Screen Negative ng/mL (Negative) 11/16/23 14:04 Valproic Acid < 2.8 ug/mL (50-100) L 11/16/23 14:23 Ur Phencyclidine Scrn Negative ng/mL (Negative) 11/16/23 14:04 Ur Amphetamines Screen Negative ng/mL (Negative) 11/16/23 14:04 U Benzodiazepines Scrn Negative ng/mL (Negative) 11/16/23 14:04 Urine Cocaine Screen Negative ng/mL (Negative) 11/16/23 14:04 U Marijuana (THC) Screen Positive ng/mL (Negative) H 11/16/23 14:04 Ethyl Alcohol < 10 mg/dL (0-10) 11/16/23 14:23 No radiology studies performed this visit Discharge Plan Discharge Patient Disposition: Admitted As Inpatient Admit Provider: Chas Forrest Clinical Impression: Homicidal ideations Condition: Stable Coding Level of Care Code ED Cuffing Machine Operator for Rosie Varner
--- NOTE | 2023-11-16 14:18 | PC.PHAR ---
PT STATES HAS BEEN OUT OF MEDICATIONS FOR AT LEAST 2 WEEKS. PT STATES ONLY HAS PART A AND NO OTHER COVERAGE FOR PRESCRIPTIONS. 11/16/23
[2023-11-16 14:29] LABS: Amphetamines Screen Urine Negative (Negative); Barbiturates Screen Urine Negative (Negative); Benzodiazepines Screen Urine Negative (Negative); Cocaine Screen Urine Negative (Negative); Opiate Screen Urine Negative (Negative); PCP Screen Urine Negative (Negative); THC Screen Urine Positive (Negative)
[2023-11-16 14:36] LABS: Basophils % 0.6 %; Eosinophils # 0.2 10^3/uL (0.0-0.8); Eosinophils % 2.4 %; Hematocrit 39.1 % (37-53); Lymphocytes # 2.3 10^3/uL (0.8-4.8); Lymphocytes % 32.9 %; Mean Corpuscular HGB Conc 33.2 g/dL (30-55); Mean Corpuscular Hemoglobin 27.8 pg (27-33); Mean Corpuscular Volume 83.7 fl (82-101); Mean Platelet Volume 9.9 fL (7.4-10.4); Monocytes # 0.4 10^3/uL (0.2-0.9); Neutrophils # 4.08 10^3/uL (1.8-7.7); Neutrophils % 57.8 %; Nucleated Red Blood Cells % 0 %; Platelet Count 289 10^3/cmm (157-399); Red Blood Count 4.67 10^6/uL (3.85-5.65); White Blood Count 7.05 10^3/uL (3.29-11.43)
[2023-11-16 15:00] LABS: Alanine Aminotransferase 25 U/L (0-41); Albumin Level 4.5 g/dL (3.5-5.2); Alkaline Phosphatase 105 U/L (40-130); Anion Gap 13.8 (5-19); Aspartate Amino Transferase 66 U/L (0-40); Blood Urea Nitrogen 14 mg/dL (6-20); Calcium 9.1 mg/dL (8.5-10.5); Carbon Dioxide 25 mmol/L (22-29); Chloride 100 mmol/L (98-107); Creatinine Clr Calc Pharmacy 68.7268; Globulin 3.7 g/dL (1.3-4.6); Glucose 111 mg/dL (65-115); Osmolality Calculated 281 mOsm/kg (285-295); Potassium 3.8 mmol/L (3.5-5.1); Salicylate 1.8 mg/dL (3-10); Sodium 135 mmol/L (136-145); Total Bilirubin 0.2 mg/dL (0.15-1.2); Total Protein 8.2 g/dL (6.6-8.7)
[2023-11-16 15:14] VITALS: BP 168/105; PULSE 60; O2SAT 94
[2023-11-16 15:24] LABS: Acetaminophen < 5.0 ug/mL (10-30); Alcohol Level < 10 mg/dL (0-10); Valproic Acid Level < 2.8 ug/mL (50-100)
[2023-11-16 15:44] VITALS: BP 156/97; PULSE 66; RESP 18; TEMP 36.4; O2SAT 93
[2023-11-16] MEDS: nicotine 4 mg lozenge MUCOUS MEM ×2 (17:11→20:31)
[2023-11-16 19:59] VITALS: BP 124/80; PULSE 90; RESP 16; TEMP 36.8; O2SAT 94
[2023-11-16] MEDS: hyDROXYzine 25 mg Capsule 50 MG PO (20:41)
[2023-11-16] MEDS: acetaminophen 325 mg Tablet 650 MG PO (20:41)
[2023-11-16] MEDS: trazodone 50 mg Tablet PO (20:42)
[2023-11-16] MEDS: fixodent 39 gm Tube 1 APPLIC DENTAL (20:43)
[2023-11-17] MEDS: ibuprofen 600 mg Tablet PO ×2 (02:16→18:21)
[2023-11-17 06:00] VITALS: BP 149/92; PULSE 82; RESP 16; TEMP 36.6; O2SAT 96
[2023-11-17] MEDS: nicotine 4 mg lozenge MUCOUS MEM ×7 (06:16→21:20)
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
[2023-11-17] MEDS: acetaminophen 325 mg Tablet 650 MG PO (08:05)
--- NOTE | 2023-11-17 09:06 | PC.NURSE ---
UP AT NURSES STATION FREQUENTLY AND IS INTRUSIVE, NOTED TO BE IMPULSIVE. DENIES SI/HI AND AVH AT THIS TIME. RATES ANXIETY AND DEPRESSION /10. DECLINES ANY NEED FOR PRN MEDICATIONS. RATES PAIN IN LEFT KNEE / TYLENOL WAS GIVEN ORDERED. PT MUMBLES WHEN SPEAKING TO STAFF AND IS SEEN FREQUENTLY SPEAKING TO UNSEEN OTHERS THEN LAUGHING. ALL QUESTIONS WERE ANSWERED AND SUPPORT WAS VOICED.
[2023-11-17 14:00] VITALS: BP 182/99; PULSE 69; RESP 20; TEMP 36.6; O2SAT 96
--- NOTE | 2023-11-17 15:15 | PC.NURSE ---
NEW ORDERS RECEIVED FROM DR. POWELL TO RESTART PTS HOME MEDICATIONS. MEDICATIONS WERE RECONCILED AND RESTARTED WITH DR. POWELL. PT EDUCATED ON ALL NEW ORDERS AND VERBALIZED UNDERSTANDING.
--- NOTE | 2023-11-17 16:18 | PC.NURSE ---
BLOOD PRESSURE WAS 182/99, DR. POWELL NOTIFIED AND PTS [place] WAS RESTARTED.
[2023-11-17 16:35] VITALS: BP 182/99
[2023-11-17] MEDS: losartan 50 mg Tablet PO (16:35)
[2023-11-17 20:17] VITALS: BP 136/92; PULSE 111; RESP 20; TEMP 37.2; O2SAT 96
[2023-11-17] MEDS: methocarbamol 750 mg Tablet PO (20:48)
[2023-11-17] MEDS: OLANZapine 10 mg TABLET PO (20:48)
[2023-11-17] MEDS: trazodone 150 mg Tablet PO (20:48)
[2023-11-17] MEDS: gabapentin 300 mg Capsule 600 MG PO (20:48)
[2023-11-17] MEDS: quetiapine 25 mg Tablet 50 MG PO (20:48)
[2023-11-17] MEDS: divalproex ER 250 mg Tablet (24H) 750 MG PO (20:48)
[2023-11-18] MEDS: nicotine 4 mg lozenge MUCOUS MEM ×9 (02:50→19:25)
[2023-11-18] MEDS: ibuprofen 600 mg Tablet PO ×3 (03:00→20:58)
[2023-11-18 06:00] VITALS: BP 131/91; PULSE 96; RESP 18; O2SAT 97
[2023-11-18] MEDS: methocarbamol 750 mg Tablet PO ×2 (08:20→17:28)
[2023-11-18] MEDS: OLANZapine 10 mg TABLET PO ×2 (08:20→17:28)
[2023-11-18] MEDS: atomoxetine 40 mg Capsule PO (08:21)
[2023-11-18] MEDS: gabapentin 300 mg Capsule 600 MG PO ×3 (08:21→20:56)
[2023-11-18] MEDS: acetaminophen 325 mg Tablet 650 MG PO ×2 (08:21→19:23)
[2023-11-18] MEDS: divalproex ER 500 mg Tablet (24H) PO (08:21)
[2023-11-18 08:22] VITALS: BP 131/91
[2023-11-18] MEDS: losartan 50 mg Tablet PO (08:22)
--- NOTE | 2023-11-18 09:52 | PC.NURSE ---
PT UP AT NURSES STATION WITH MULTIPLE RAPID REQUESTS, ALL REQUESTS MET AND PT BEGINS AGAIN WITH MULTIPLE DEMANDS. PT REDIRECTED AWAY FROM NURSES STATION ONCE ALL NEEDS WERE MET. PT HAS HAD SEVERAL CUPS OF COFFEE, WATER AND LEMONAIDE AND WAS EDUCATED ABOUT WASHING OUT HIS MEDICATIONS. PT CONTINUES TO REQUEST MULTIPLE DRINKS BUT ASKED TO WAIT 15 MINUTES IN BETWEEN. DENIES SI/HI AND AVH AT THIS TIME. PT SPEECH IS MUMBLED AND HARD TO UNDERSTAND. RATES ANXIETY 2/10 AND DEPRESSION 4/10. PT COMPLIANT WITH MEDIATIONS. RATES PAIN 8/10 IN LEFT KNEE TYLENOL WAS GIVEN ORDERED. ALL QUESTIONS WERE ANSWERED AND SUPPORT WAS VOICED.
--- NOTE | 2023-11-18 11:46 | P.NPUPN_ITS ---
Subjective NPU 2 Subjective: Patient presented today reporting that he is doing okay and just thinks his medications being restarted. He was able to talk about the individual that was the nidus of his homicidal ideations. He once again was very focused on how frustrated he gets when he feels someone is ordering him around and not asking home for what ever it is they need some help. We talked about the likelihood of him returning to the same location and the importance of him being out of place refills safe and able to manage his frustration. He had started thinking about timeframe for discharge and we reflected back on the importance of helping at a place where he can contract for safety with the knowledge that the individual will likely not change meaning he will have to be the source of change in the dynamic. He denied any side effects to the medication. Mental Status Exam 2 MSE Comments: This is an obese, tall white male? in hospital scrubs with adequate grooming and eye contact. No abnormal movements except for mild psychomotor retardation. Cooperative with exam in no acute distress. Speech was slightly decreased rate and volume. Mood described as okay, affect is congruent but less guarded. Thought process appeared organized. Thought content: patient denies suicidal but endorsed homicidal ideation, no delusions reported but some paranoia noted, and he denies any auditory or visual hallucinations.? Attention and concentration appeared intact and memory appeared somewhat reliable though he purposely did not want to share some information, but none were formally tested. He is alert and oriented x 3. Insight and judgment are limited. Impulse control is limited. Vitals/I&O/Wt Last Vital Signs Temp 98.9 F 11/17/23 20:17 Pulse 96 11/18/23 06:00 Resp 18 11/18/23 06:00 BP 131/91 11/18/23 08:22 Pulse Ox 97 11/18/23 06:00 O2 Del Method Room Air 11/18/23 06:00 Weight last 48 hrs Weight 93.44 kg Data NPU 11/16/23 14:23 11/16/23 14:23 A&P Assessment and plan (1) Cannabis use disorder, severe, dependence: (2) Depression with suicidal ideation: (3) Schizoaffective disorder, unspecified: Qualifiers: Schizoaffective disorder type: unspecified Qualified Code(s): F25.9 - Schizoaffective disorder, unspecified (4) Anxiety: (5) Essential (primary) hypertension: (6) Methamphetamine use disorder, severe, in early remission, dependence: (7) Homicidal ideations: Plan This is a 53 year old white male with a long history of trauma and addiction with genetic loading for mental health and addiction issues with continuing mental health challenges and only active cannabis use per UDS with history of methamphetamine use in the past who presents expressing homicidal ideation leading to hospitalization with an affidavit open to restarting medications.. 1.? Restarted psychiatric medications. 2.? Encourage individual, group and milieu therapy 3.? Continue q-15 minute check for safety 4.? Recommend sober living treatment at the highest level of care to which the patient is willing to commit. 5.? We will work to identify the barriers to him not running out of his medication prior to discharge. Involuntary Hold Information 2 96 Hour Hold: 96 Hour Involuntary Admission: No Attestations NPU 2 Medical Necessity Statement*: Inpatient hospitalization is medically necessary and the clinically appropriate intervention at this time. We will monitor medications and make changes as indicated. Likely length of stay 2-4 days. Coding Level of Care Code Acute Code for [facility] Fwd Diagnoses Cannabis use disorder, severe, dependence F12.20 Depression with suicidal ideation F32.A; R45.851 Schizoaffective disorder, unspecified type F25.9 Schizoaffective disorder type: unspecified Anxiety F41.9 Essential (primary) hypertension I10 Methamphetamine use disorder, severe, in early remission, dependence F15.21 Homicidal ideations R45.850
[2023-11-18 14:00] VITALS: BP 131/83; PULSE 116; RESP 20; TEMP 36.4; O2SAT 94
[2023-11-18 19:34] VITALS: BP 159/99; PULSE 108; RESP 18; TEMP 36.7; O2SAT 96
[2023-11-18] MEDS: quetiapine 25 mg Tablet 50 MG PO (20:55)
[2023-11-18] MEDS: hyDROXYzine 25 mg Capsule 50 MG PO (20:56)
[2023-11-18] MEDS: trazodone 150 mg Tablet PO (20:56)
[2023-11-18] MEDS: divalproex ER 250 mg Tablet (24H) 750 MG PO (20:57)
--- NOTE | 2023-11-19 06:38 | PC.NURSE ---
pt resting resp 18
[2023-11-19] MEDS: nicotine 4 mg lozenge MUCOUS MEM ×7 (06:45→20:48)
[2023-11-19] MEDS: ibuprofen 600 mg Tablet PO (08:05)
[2023-11-19] MEDS: hyDROXYzine 25 mg Capsule 50 MG PO ×2 (08:05→19:18)
[2023-11-19] MEDS: methocarbamol 750 mg Tablet PO ×2 (08:05→17:59)
[2023-11-19] MEDS: atomoxetine 40 mg Capsule PO (08:05)
[2023-11-19] MEDS: divalproex ER 500 mg Tablet (24H) PO (08:05)
[2023-11-19 08:06] VITALS: BP 159/99
[2023-11-19] MEDS: losartan 50 mg Tablet PO (08:06)
[2023-11-19] MEDS: OLANZapine 10 mg TABLET PO ×2 (08:06→17:59)
[2023-11-19] MEDS: gabapentin 300 mg Capsule 600 MG PO ×3 (08:06→20:21)
--- NOTE | 2023-11-19 08:53 | PC.NURSE ---
DENIES SI/HI AND AVH AT THIS TIME. RATES PAIN IN LEFT KNEE 01/28 IBUPROFEN 600 MG WAS GIVEN ORDERED FOR PAIN. MILD ANXIETY REPORTED / AND DEPRESSION /. VISTARIL 50 MG WAS GIVEN ORDERED FOR REPORTS OF INCREASED ANXIETY. ALL QUESTIONS WERE ANSWERED AND SUPPORT VOICED.
[2023-11-19] MEDS: fixodent 39 gm Tube 1 APPLIC DENTAL (08:54)
--- NOTE | 2023-11-19 11:47 | W.PM.NPUPNS ---
Subjective NPU Subjective: Patient presented today reporting that he is starting to feel a little less stressed. He reports feeling less animosity towards his landlord. He reports a plan to return to his same living arrangement and reports that he does not currently feel like he would act on anything. He reports that he is proud that he has been able to maintain his sobriety since he got out of retirement. Reporting that that really did scare him and he does want to go back again. He denies any side effects of the medication. Mental Status Exam MSE Comments: This is an obese, tall white male? in hospital scrubs with adequate grooming and eye contact. No abnormal movements except for mild psychomotor retardation. Cooperative with exam in no acute distress. Speech was slightly decreased rate and volume. Mood described as okay, affect is congruent but less guarded. Thought process appeared organized. Thought content: patient denies suicidal but endorsed less homicidal ideation, no delusions reported but some paranoia noted, and he denies any auditory or visual hallucinations.? Attention and concentration appeared intact and memory appeared somewhat reliable though he purposely did not want to share some information, but none were formally tested. He is alert and oriented x 3. Insight and judgment are limited. Impulse control is limited. Vitals/I&O/Wt Last Vital Signs Temp 98.1 F 11/18/23 19:34 Pulse 108 H 11/18/23 19:34 Resp 18 11/18/23 19:34 BP 159/99 11/19/23 08:06 Pulse Ox 96 11/18/23 19:34 O2 Del Method Room Air 11/18/23 19:34 Data NPU 11/16/23 14:23 11/16/23 14:23 A&P Assessment and plan (1) Cannabis use disorder, severe, dependence: (2) Depression with suicidal ideation: (3) Schizoaffective disorder, unspecified: Qualifiers: Schizoaffective disorder type: unspecified Qualified Code(s): F25.9 - Schizoaffective disorder, unspecified (4) Anxiety: (5) Essential (primary) hypertension: (6) Methamphetamine use disorder, severe, in early remission, dependence: (7) Homicidal ideations: Plan This is a 53 year old white male with a long history of trauma and addiction with genetic loading for mental health and addiction issues with continuing mental health challenges and only active cannabis use per UDS with history of methamphetamine use in the past who presents expressing homicidal ideation leading to hospitalization with an affidavit open to restarting medications.. 1.? Restarted psychiatric medications. 2.? Encourage individual, group and milieu therapy 3.? Continue q-15 minute check for safety 4.? Recommend sober living treatment at the highest level of care to which the patient is willing to commit. 5.? We will work to identify the barriers to him not running out of his medication prior to discharge. Involuntary Hold Information 96 Hour Hold: 96 Hour Involuntary Admission: No Attestations NPU Medical Necessity Statement*: Inpatient hospitalization is medically necessary and the clinically appropriate intervention at this time. We will monitor medications and make changes as indicated. Likely length of stay 1-3 days. Coding Level of Care Code Acute Code for [facility] Fwd Diagnoses Cannabis use disorder, severe, dependence F12.20 Depression with suicidal ideation F32.A; R45.851 Schizoaffective disorder, unspecified type F25.9 Schizoaffective disorder type: unspecified Anxiety F41.9 Essential (primary) hypertension I10 Methamphetamine use disorder, severe, in early remission, dependence F15.21 Homicidal ideations R45.850
[2023-11-19 14:00] VITALS: BP 155/112; PULSE 117; RESP 20; TEMP 36.6; O2SAT 95
[2023-11-19] MEDS: quetiapine 25 mg Tablet 50 MG PO (20:20)
[2023-11-19] MEDS: divalproex ER 250 mg Tablet (24H) 750 MG PO (20:21)
[2023-11-19] MEDS: trazodone 150 mg Tablet PO (20:22)
[2023-11-19 20:44] VITALS: BP 137/90; PULSE 98; RESP 20; TEMP 36.5; O2SAT 97
--- NOTE | 2023-11-19 23:18 | PC.NURSE ---
Patient upset at this time due to I want some food! Patient was given 3 bags of chips, 2 packages of chocolate chip cookies, 2 chocolate milks, 16oz cup full of lemonade and a 16oz cup full of fruit punch since 8pm that this nurse is aware of. Patient was told that snacks are slim and some needed to be saved for the other patients. 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 Patient was reassured he would get more food tomorrow with his meals and snack times. Patient threw his current bag of chips at the glass of the nurses station, stomped off down the workman shouting, this is bull shit!
[2023-11-20] MEDS: acetaminophen 325 mg Tablet 650 MG PO (03:04)
[2023-11-20 06:00] VITALS: BP 115/73; PULSE 106; RESP 19; O2SAT 97
[2023-11-20] MEDS: nicotine 4 mg lozenge MUCOUS MEM ×8 (06:20→21:06)
[2023-11-20 08:09] VITALS: BP 158/104
[2023-11-20] MEDS: divalproex ER 500 mg Tablet (24H) PO (08:09)
[2023-11-20] MEDS: gabapentin 300 mg Capsule 600 MG PO ×3 (08:09→21:06)
[2023-11-20] MEDS: atomoxetine 40 mg Capsule PO (08:09)
[2023-11-20] MEDS: OLANZapine 10 mg TABLET PO ×2 (08:09→17:47)
[2023-11-20] MEDS: methocarbamol 750 mg Tablet PO ×2 (08:09→17:46)
[2023-11-20] MEDS: losartan 50 mg Tablet PO (08:09)
[2023-11-20] MEDS: fixodent 39 gm Tube 1 APPLIC DENTAL (10:02)
[2023-11-20] MEDS: hyDROXYzine 25 mg Capsule 50 MG PO ×2 (11:54→21:06)
--- NOTE | 2023-11-20 12:59 | P.NPUPN_ITS ---
Subjective NPU 2 Subjective: Patient presented today continuing to make slow progress per staff reports and direct observation. Staff report the irritability that was present during the initial stay has gone away. He is much more jovial and denied any active lethality towards himself or others. He denies any side effects of the medication. He endorses working with the social work team for aftercare, follow-up and discharge planning. Mental Status Exam 2 MSE Comments: This is an obese, tall white male? in hospital scrubs with adequate grooming and eye contact. No abnormal movements except for mild psychomotor retardation. Cooperative with exam in no acute distress. Speech was slightly decreased rate and volume. Mood described as okay, affect is congruent but less guarded. Thought process appeared organized. Thought content: patient denies suicidal but endorsed less homicidal ideation, no delusions reported but some paranoia noted, and he denies any auditory or visual hallucinations.? Attention and concentration appeared intact and memory appeared somewhat reliable though he purposely did not want to share some information, but none were formally tested. He is alert and oriented x 3. Insight and judgment are limited. Impulse control is limited. Vitals/I&O/Wt Last Vital Signs Temp 97.7 F 11/19/23 20:44 Pulse 106 H 11/20/23 06:00 Resp 19 H 11/20/23 06:00 BP 158/104 11/20/23 08:09 Pulse Ox 97 11/20/23 06:00 O2 Del Method Room Air 11/20/23 06:00 Data NPU 11/16/23 14:23 11/16/23 14:23 A&P Assessment and plan (1) Cannabis use disorder, severe, dependence: (2) Depression with suicidal ideation: (3) Schizoaffective disorder, unspecified: Qualifiers: Schizoaffective disorder type: unspecified Qualified Code(s): F25.9 - Schizoaffective disorder, unspecified (4) Anxiety: (5) Essential (primary) hypertension: (6) Methamphetamine use disorder, severe, in early remission, dependence: (7) Homicidal ideations: Plan This is a 53 year old white male with a long history of trauma and addiction with genetic loading for mental health and addiction issues with continuing mental health challenges and only active cannabis use per UDS with history of methamphetamine use in the past who presents expressing homicidal ideation leading to hospitalization with an affidavit open to restarting medications.. 1.? Restarted psychiatric medications. 2.? Encourage individual, group and milieu therapy 3.? Continue q-15 minute check for safety 4.? Recommend sober living treatment at the highest level of care to which the patient is willing to commit. 5.? We will work to identify the barriers to him not running out of his medication prior to discharge. Involuntary Hold Information 2 96 Hour Hold: 96 Hour Involuntary Admission: No Attestations NPU 2 Medical Necessity Statement*: Inpatient hospitalization is medically necessary and the clinically appropriate intervention at this time. We will monitor medications and make changes as indicated. Likely length of stay 1-3 days. Coding Level of Care Code Acute Code for [facility] Fwd Diagnoses Cannabis use disorder, severe, dependence F12.20 Depression with suicidal ideation F32.A; R45.851 Schizoaffective disorder, unspecified type F25.9 Schizoaffective disorder type: unspecified Anxiety F41.9 Essential (primary) hypertension I10 Methamphetamine use disorder, severe, in early remission, dependence F15.21 Homicidal ideations R45.850
[2023-11-20 13:22] VITALS: BP 159/84; PULSE 100; RESP 16; TEMP 36.6; O2SAT 95
[2023-11-20] MEDS: neomycin-poly-bacitracin oint 28 gm 1 APPLIC TOPICAL (16:03)
[2023-11-20 20:06] VITALS: BP 117/68; PULSE 83; RESP 16; TEMP 36.6; O2SAT 97
[2023-11-20] MEDS: trazodone 150 mg Tablet PO (21:06)
[2023-11-20] MEDS: quetiapine 25 mg Tablet 50 MG PO (21:06)
[2023-11-20] MEDS: divalproex ER 250 mg Tablet (24H) 750 MG PO (21:06)
[2023-11-21] MEDS: ibuprofen 600 mg Tablet PO ×2 (02:50→20:49)
[2023-11-21] MEDS: nicotine 4 mg lozenge MUCOUS MEM ×7 (05:36→20:50)
[2023-11-21 06:00] VITALS: BP 126/88; PULSE 107; RESP 17; TEMP 36.5; O2SAT 96
[2023-11-21] MEDS: atomoxetine 40 mg Capsule PO (08:09)
[2023-11-21] MEDS: b-complex-vitamin c Tablet 1 EACH PO (08:09)
[2023-11-21] MEDS: methocarbamol 750 mg Tablet PO ×2 (08:09→17:03)
[2023-11-21] MEDS: OLANZapine 10 mg TABLET PO ×2 (08:09→17:03)
[2023-11-21] MEDS: divalproex ER 500 mg Tablet (24H) PO (08:09)
[2023-11-21] MEDS: gabapentin 300 mg Capsule 600 MG PO ×3 (08:09→20:50)
[2023-11-21 08:10] VITALS: BP 154/110
[2023-11-21] MEDS: losartan 50 mg Tablet PO (08:10)
[2023-11-21] MEDS: fixodent 39 gm Tube 1 APPLIC DENTAL (08:39)
--- NOTE | 2023-11-21 09:49 | PC.NURSE ---
AT AROUND 0900 STAFF PERFORMED RANDOM ROOM CHECKS FOR CONTRABAND. DURING THIS RANDOM CHECK NO CONTRABAND WAS FOUND IN PT ROOM. PT WAS COOPERATIVE WITH CHECK.
[2023-11-21 14:00] VITALS: BP 141/92; PULSE 94; RESP 20; TEMP 36.6; O2SAT 95
--- NOTE | 2023-11-21 17:41 | P.NPUPN_ITS ---
Subjective NPU 2 Subjective: Patient presented today reporting that he is feeling better. We discussed the possibility of discharge tomorrow and he was worried about whether his brother would be available for pickup. We discussed being able to work with the social work team for transportation arrangements. He denied any side effects of the medication. Mental Status Exam 2 MSE Comments: This is an obese, tall white male? in hospital scrubs with adequate grooming and eye contact. No abnormal movements except for mild psychomotor retardation. Cooperative with exam in no acute distress. Speech was slightly decreased rate and volume. Mood described as okay, affect is congruent but less guarded. Thought process appeared organized. Thought content: patient denies suicidal but endorsed less homicidal ideation, no delusions reported but some paranoia noted, and he denies any auditory or visual hallucinations.? Attention and concentration appeared intact and memory appeared somewhat reliable though he purposely did not want to share some information, but none were formally tested. He is alert and oriented x 3. Insight and judgment are limited. Impulse control is limited. Vitals/I&O/Wt Last Vital Signs Temp 97.9 F 11/21/23 20:03 Pulse 84 11/21/23 20:03 Resp 17 11/21/23 20:03 BP 128/75 11/21/23 20:03 Pulse Ox 99 11/21/23 20:03 O2 Del Method Room Air 11/20/23 13:22 Data NPU 11/16/23 14:23 11/16/23 14:23 A&P Assessment and plan (1) Cannabis use disorder, severe, dependence: (2) Depression with suicidal ideation: (3) Schizoaffective disorder, unspecified: Qualifiers: Schizoaffective disorder type: unspecified Qualified Code(s): F25.9 - Schizoaffective disorder, unspecified (4) Anxiety: (5) Essential (primary) hypertension: (6) Methamphetamine use disorder, severe, in early remission, dependence: (7) Homicidal ideations: Plan This is a 53 year old white male with a long history of trauma and addiction with genetic loading for mental health and addiction issues with continuing mental health challenges and only active cannabis use per UDS with history of methamphetamine use in the past who presents expressing homicidal ideation leading to hospitalization with an affidavit open to restarting medications.. 1.? Restarted psychiatric medications. 2.? Encourage individual, group and milieu therapy 3.? Continue q-15 minute check for safety 4.? Recommend sober living treatment at the highest level of care to which the patient is willing to commit. 5.? We will work to identify the barriers to him not running out of his medication prior to discharge. Involuntary Hold Information 2 96 Hour Hold: 96 Hour Involuntary Admission: No Attestations NPU 2 Medical Necessity Statement*: Inpatient hospitalization is medically necessary and the clinically appropriate intervention at this time. We will monitor medications and make changes as indicated. Likely length of stay 1-3 days. Coding Level of Care Code Acute Code for [facility] Fwd Diagnoses Cannabis use disorder, severe, dependence F12.20 Depression with suicidal ideation F32.A; R45.851 Schizoaffective disorder, unspecified type F25.9 Schizoaffective disorder type: unspecified Anxiety F41.9 Essential (primary) hypertension I10 Methamphetamine use disorder, severe, in early remission, dependence F15.21 Homicidal ideations R45.850
[2023-11-21 20:03] VITALS: BP 128/75; PULSE 84; RESP 17; TEMP 36.6; O2SAT 99
[2023-11-21] MEDS: quetiapine 25 mg Tablet 50 MG PO (20:50)
[2023-11-21] MEDS: divalproex ER 250 mg Tablet (24H) 750 MG PO (20:50)
[2023-11-21] MEDS: hyDROXYzine 25 mg Capsule 50 MG PO (20:50)
[2023-11-21] MEDS: haloperidol 5 mg Tablet PO (20:51)
[2023-11-21] MEDS: trazodone 150 mg Tablet PO (21:09)
[2023-11-22] MEDS: nicotine 4 mg lozenge MUCOUS MEM ×6 (04:22→15:24)
[2023-11-22 06:00] VITALS: BP 145/89; PULSE 93; RESP 18; TEMP 36.6; O2SAT 98
[2023-11-22 08:26] VITALS: BP 145/89
[2023-11-22] MEDS: ibuprofen 600 mg Tablet PO ×2 (08:26→16:35)
[2023-11-22] MEDS: losartan 50 mg Tablet PO (08:26)
[2023-11-22] MEDS: gabapentin 300 mg Capsule 600 MG PO ×2 (08:26→15:26)
[2023-11-22] MEDS: OLANZapine 10 mg TABLET PO (08:26)
[2023-11-22] MEDS: b-complex-vitamin c Tablet 1 EACH PO (08:26)
[2023-11-22] MEDS: divalproex ER 500 mg Tablet (24H) PO (08:26)
[2023-11-22] MEDS: methocarbamol 750 mg Tablet PO (08:26)
[2023-11-22] MEDS: atomoxetine 40 mg Capsule PO (08:26)
[2023-11-22] MEDS: fixodent 39 gm Tube 1 APPLIC DENTAL (12:33)
[2023-11-22 13:44] VITALS: BP 166/99; PULSE 95; RESP 16; TEMP 36.6; O2SAT 100
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
--- NOTE | 2023-11-22 14:55 | DCPLANNER ---
Imm completed 11/22/2023 @ 0846. Pt was give his rights and he stated he understood his rights.
[2023-11-22 15:01] VITALS: BP 166/99; PULSE 95; RESP 16; TEMP 36.6; O2SAT 100
[2023-11-22] MEDS: hyDROXYzine 25 mg Capsule 50 MG PO (16:35)
--- NOTE | 2023-11-22 17:03 | PC.NURSE ---
RN WENT TO DISCHARGE PT AND WHEN RN BEGAN GOING OVER MEDICATIONS AND PICKING THE MEDICATIONS UP AT THE [facility] PT BECAME HIGHLY UPSET AND ANXIOUS. PT STATED MY MEDICARE PART D DOESN'T START UNTIL DECEMBER FIRST SO I CAN GET MY MEDICATIONS AND I CAN'T PAY FOR THEM BECAUSE I DON'T HAVE ANY MONEY. RN [facility] TO SEE IF THEY WOULD TRANSFER MEDICATIONS TO [facility]. [facility] [employer] [facility] SAID THEY WOULD CANCEL ALL THE MEDICATIONS AND THE DRBrian COULD RESEND THEM TO [facility]. DR. POWELL CALLED AND NOTIFIED OF PT NOT BEING ABLE TO CORRECTION [facility] MEDICATIONS AND HAS NO MONEY. RESENT PRESCRIPTIONS TO [facility] FOR MEDS TO BEDS. PHARMACY BROUGHT DOWN ALL MEDICATIONS. PT WAS DISCHARGED WITH ALL BELONGINGS, CLOTHING, PERSONAL ITEMS AND PRESCRIPTIONS. ALL QUESTIONS WERE ANSWERED AND SUPPORT VOICED..
== END 2023-11-22 17:11 | disposition home or self-care (01) | DRG 885 ==
LOC: ER 14:52 → NP 15:11
PROVIDERS: Admitting Provider Psychiatry & Neurology Psychiatry; Emergency Provider Emergency Medicine; PCP Nurse Practitioner; Visit Provider Psychiatry & Neurology Psychiatry
DX: F25.9 Schizoaffective disorder, unspecified (principal); R45.850 Homicidal ideations; F15.21 Other stimulant dependence, in remission; Z72.0 Tobacco use; I10 Essential (primary) hypertension; F41.9 Anxiety disorder, unspecified
CPT/HCPCS: 36415; 80053; 80164; 80306; 80307; 85025; 97150; 97165; 99285

== ENCOUNTER → 2025-04-14 10:45 | Outpatient (BNVA) | payer MEDICARE, MEDICAID, SELFPAY | PROVIDERS: PCP Nurse Practitioner; Visit Provider Nurse Practitioner Family | DX: L82.1 Other seborrheic keratosis (principal); L81.4 Other melanin hyperpigmentation; L82.0 Inflamed seborrheic keratosis; L29.89 Other pruritus; R20.9 Unspecified disturbances of skin sensation; R20.8 Other disturbances of skin sensation; L53.8 Other specified erythematous conditions; B07.8 Other viral warts; D48.5 Neoplasm of uncertain behavior of skin | CPT/HCPCS: 11102; 17110; 99203 ==

== ENCOUNTER → 2025-05-16 11:05 | Outpatient (BNVA) | payer MEDICARE, MEDICAID, SELFPAY | PROVIDERS: PCP Nurse Practitioner; Visit Provider Nurse Practitioner Family | DX: C44.41 Basal cell carcinoma of skin of scalp and neck (principal); B07.8 Other viral warts; R20.9 Unspecified disturbances of skin sensation; L72.0 Epidermal cyst; L82.1 Other seborrheic keratosis; L81.4 Other melanin hyperpigmentation | CPT/HCPCS: 99213 ==

== ENCOUNTER → 2025-06-09 12:22 | Outpatient (BNVA) | payer MEDICARE, MEDICAID, SELFPAY | PROVIDERS: PCP Nurse Practitioner; Visit Provider Dermatology | DX: C44.41 Basal cell carcinoma of skin of scalp and neck (principal) | CPT/HCPCS: 12042; 17311 ==